=== PATIENT | male | born 1965 | race Caucasian/White ===

== ENCOUNTER 2016-12-18 11:33 | Inpatient (IN) | payer MEDICARE ==
[2016-12-18 11:33] VITALS: BMI 32.5
[2016-12-18 12:01] LABS: DRAW SITE VENOUS; VENOUS BLOOD GAS BASE EXCESS 0.6 mmol/L (0.0-2.0); VENOUS BLOOD GAS PCO2 52 mmHg (40-60); VENOUS BLOOD PH 7.33 (7.32-7.43)
[2016-12-18 12:03] LABS: BASO % 0.8 % (0.0-2.0); EOS # 0.1 K/uL (0.0-0.7); EOS % 2.4 % (0.0-4.0); HEMATOCRIT 40.7 % (35.0-51.0); LYMPH # 1.1 K/uL (1.0-4.3); LYMPH % 30.5 % (20.0-40.0); MEAN CELL VOLUME 91.1 fL (80.0-94.0); MEAN CORPUSCULAR HEMOGLOBIN 29.9 pg (27.0-31.0); MEAN CORPUSCULAR HGB CONC 32.8 g/dL (33.0-37.0); MEAN PLATELET VOLUME 9.8 fL (7.2-11.7); MONO # 0.7 K/uL (0.0-0.8); MONO % 17.6 % (0.0-10.0); NRBC % 0.1 % (0.0-2.0); RED CELL DISTRIBUTION WIDTH 14.4 % (11.5-14.5)
[2016-12-18 12:12] LABS: CHLORIDE 104 mmol/L (98-107); POTASSIUM 3.8 mmol/L (3.6-5.2); SODIUM 144 mmol/L (132-148)
[2016-12-18] MEDS ORDERED: Albuterol 0.083% Inhal Sol (2.5 mg/3 mL) UD INH STA ×2 (12:13→13:42)
[2016-12-18 12:14] LABS: BILIRUBIN,TOTAL 1.5 mg/dL (0.2-1.3); GFR AFRICAN-AMERICAN > 60
[2016-12-18 12:15] LABS: ALB/GLOB RATIO 0.9 (1.0-2.1); ALKALINE PHOSPHATASE 81 U/L (38-126); ALT/SGPT 44 U/L (21-72); AST/SGOT 57 U/L (17-59); BLOOD UREA NITROGEN 18 mg/dL (9-20); CALCIUM 8.1 mg/dl (8.6-10.4); CARBON DIOXIDE 26 mmol/L (22-30); GLUCOSE,RANDOM 119 mg/dL (75-110); TOTAL PROTEIN 9.3 g/dL (6.3-8.3)
[2016-12-18] MEDS ORDERED: Magnesium Sulfate 1 gm in D5W 200 ML IVPB ONE (12:22)
[2016-12-18 12:26] LABS: WHITE BLOOD COUNT 3.8 K/uL (4.8-10.8)
--- NOTE | 2016-12-18 13:22 | RAD ---
HISTORY: sob COMPARISON: 08/09/2016 FINDINGS: LUNGS: No active pulmonary disease. PLEURA: No significant pleural effusion identified, no pneumothorax apparent. CARDIOVASCULAR: Cardiomegaly. No significant congestive change. OSSEOUS STRUCTURES: No significant abnormalities. VISUALIZED UPPER ABDOMEN: Normal. OTHER FINDINGS: None. IMPRESSION: Cardiomegaly. No acute infiltrate.
--- NOTE | 2016-12-18 13:41 | C.PDOC ---
History Of Present Illness 51 y/o male is brought into the ED by ALS complaining of his "typical" asthma symptoms starting this morning. Patient placed on BIPAP by ALS prior to arrival. On arrival to the ED patient states he feels "much better." He admits to dry cough but denies fever or chest pain. Chief Complaint (Nursing): Respiratory Distress History Per: Patient, EMS History/Exam Limitations: no limitations Onset/Duration Of Symptoms: Hrs, Persistent Current Symptoms Are (Timing): Better Recent travel outside of the [place]: No Past Medical History Reviewed: Historical Data, Nursing Documentation, Vital Signs Vital Signs: Last Vital Signs Temp 97.9 F 12/18/16 11:35 Pulse 87 12/18/16 13:56 Resp 18 12/18/16 13:56 BP 115/77 12/18/16 13:56 Pulse Ox 91 L 12/18/16 15:25 - Medical History PMH: Asthma, Back Problems, CHF, COPD, HIV (Compliant with medications; Unknown CD4 count), HTN, Peripheral Edema, Pneumonia Surgical History: Coronary Stent (x2) - Twice Procedures ASSISTANCE WITH RESPIRATORY VENTILATION, <24 HRS, CPAP (08/09/16) CORONAR ARTERIOGR-2 CATH (12/30/13) EXCISION OF MINOR SALIVARY GLAND, PERC APPROACH, DIAGN (01/29/16) RT & LT HEART ANGIOCARD (12/30/13) RT/LEFT HEART CARD CATH (12/30/13) ULTRASONOGRAPHY OF NECK (01/29/16) Family History: States: Unknown Family Hx - Social History Hx Tobacco Use: No Hx Alcohol Use: No Hx Substance Use: No - Immunization History Hx Tetanus Toxoid Vaccination: Yes Hx Influenza Vaccination: Yes Hx Pneumococcal Vaccination: Yes Review Of Systems Except As Marked, All Systems Reviewed And Found Negative. Constitutional: Negative for: Fever Cardiovascular: Negative for: Chest Pain Respiratory: Positive for: Cough, Shortness of Breath, Wheezing. Negative for: Sputum Physical Exam - Physical Exam Appears: Non-toxic, No Acute Distress Skin: Normal Color, Warm, Dry Head: Atraumatic, Normacephalic Eye(s): bilateral: Normal Inspection, PERRL Neck: Normal ROM Chest: Symmetrical Cardiovascular: Rhythm Regular Respiratory: No Accessory Muscle Use, No Rales, No Rhonchi, Wheezing (minimal expiratory wheezing with good air entry) Gastrointestinal/Abdominal: Normal Exam, Soft, No Tenderness Extremity: Normal ROM, No Swelling Neurological/Psych: Oriented x3, Normal Speech, Normal Cognition ED Course And Treatment - Laboratory Results Result Diagrams: 12/18/16 11:57 12/18/16 11:57 ECG: Interpreted By Me ECG Rhythm: Sinus Rhythm, R BBB Interpretation Of ECG: right axis deviation Rate From EC (bpm) O2 Sat by Pulse Oximetry: 91 (ra) Pulse Ox Interpretation: Abnormal - Other Rad Chest X-Ray X-Ray: Viewed By Me, Read By Radiologist (Hilton Davidson MD) Interpretation: IMPRESSION: Cardiomegaly. No acute infiltrate. Medical Decision Making Medical Decision Making: Plan: * EKG * CXR * Labs * Albuterol, Magnesium Sulfate IVPB Case discussed with Dr. Anant Anderson who requests that the patient be placed in telemetry observation under his care. Disposition - Disposition Disposition Time: 15:15 Condition: STABLE - Clinical Impression Clinical Impression: Congestive heart failure, Chronic obstructive lung disease - Scribe Statement The provider has reviewed the documentation as recorded by the Scribe (Raiza Murillo) Provider Attestation: All medical record entries made by the Scribe were at my direction and personally dictated by me. I have reviewed the chart and agree that the record accurately reflects my personal performance of the history, physical exam, medical decision making, and the department course for this patient. I have also personally directed, reviewed, and agree with the discharge instructions and disposition.
[2016-12-18] MEDS ORDERED: Albuterol 0.083% Inhal Sol (2.5 mg/3 mL) UD ONE (13:53)
[2016-12-18] MEDS ORDERED: Albuterol-Ipratrop 3 mg / 0.5 (3 ml) UD ONE (14:33)
[2016-12-19] MEDS: Albuterol-Ipratrop 3 mg / 0.5 (3 ml) UD INH STA ×2 (01:33→06:30)
[2016-12-19] MEDS ORDERED: Albuterol-Ipratrop 3 mg / 0.5 (3 ml) UD INH ONE (01:49)
[2016-12-19] MEDS ORDERED: Albuterol-Ipratrop 3 mg / 0.5 (3 ml) UD ONE (06:28)
[2016-12-19] MEDS ORDERED: BOSENTAN PO SCH (10:00)
[2016-12-19] MEDS ORDERED: Abacavir/Lamivudine 600 mg-300 mg Tab PO SCH (10:00)
[2016-12-19] MEDS: Abacavir/Lamivudine 600 mg-300 mg Tab PO SCH (10:26)
[2016-12-19] MEDS ORDERED: Abacavir/Lamivudine 600 mg-300 mg Tab PO ONE (10:26)
[2016-12-19] MEDS: Albuterol-Ipratrop 3 mg / 0.5 (3 ml) UD INH SCH ×2 (13:25→19:25)
[2016-12-19] MEDS: Tmp-Smz 800 mg-160 mg DS Tab PO SCH (18:50)
[2016-12-20] MEDS: Albuterol-Ipratrop 3 mg / 0.5 (3 ml) UD INH SCH ×4 (01:50→20:04)
[2016-12-20] MEDS: Tmp-Smz 800 mg-160 mg DS Tab PO SCH (09:26)
[2016-12-20] MEDS: Abacavir/Lamivudine 600 mg-300 mg Tab PO SCH (09:27)
[2016-12-20] MEDS ORDERED: Abacavir/Lamivudine 600 mg-300 mg Tab PO ONE (09:27)
[2016-12-21] MEDS: Albuterol-Ipratrop 3 mg / 0.5 (3 ml) UD INH SCH ×4 (01:43→20:52)
[2016-12-21] MEDS: Tmp-Smz 800 mg-160 mg DS Tab PO SCH (09:48)
[2016-12-21] MEDS: Abacavir/Lamivudine 600 mg-300 mg Tab PO SCH (09:51)
--- NOTE | 2016-12-21 09:58 | HP ---
The patient is a 51-year-old male admitted to hospital with chief complaint of progressive shortness of breath, wheezes, cough, fatigue, tiredness. The patient has a history of COPD, pulmonary hyperten tasha, HIV, heart failure. The patient is on DuoNeb, O2, takes Lasix. The patient is an ex-smoker. PHYSICAL EXAMINATION: GENERAL: The patient is awake, alert, oriented. VITAL SIGNS: Temperature 98, pulse 90. HEENT: Within normal limits. NECK: Supple. CHEST: Symmetrical. HEART: Regular. ABDOMEN: Soft. EXTREMITIES: No edema. ASSESSMENT: The patient has chronic obstructive pulmonary disease, pulmonary hypertension, heart jevon lure. The patient bed rest, supportive care, bronchodilators, diuresis. Anant Daniel MD cc: [id number] TT: 12/19/2016 10:56:52 ms
--- NOTE | 2016-12-21 10:53 | CP.PCM.PN ---
Subjective - Date & Time of Evaluation Date of Evaluation: 12/21/16 Time of Evaluation: 08:35 - Subjective Subjective: Medicine Progress Note- Dr. Anderson's Service: Patient seen and examined at bedside this AM. Patient reports he is breathing much better than on admission. Patient admitted 12/18/16 for SOB secondary to asthma and CHF exacerbation. Admits to wheezing, occasional SOB. He was able to sleep better last night. Patient is complaining of LE edema bilaterally. Denies chest pain, fever, chills, cough, nausea, vomiting. Seen with attending during rounds. Objective - Vital Signs/Intake and Output Vital Signs (last 24 hours): Temp Pulse Resp BP Pulse Ox 97.4 F L 88 18 107/73 95 12/21/16 07:35 12/21/16 07:35 12/21/16 07:35 12/21/16 09:48 12/21/16 07:35 Intake and Output: 12/21/16 12/21/16 06:59 18:59 Intake Total 620 Balance 620 - Medications Medications: Current Medications Abacavir/Lamivudine (Epzicom) 1 tab PO DAILY [facility] Last Admin: 12/21/16 09:51 Dose: 1 tab Albuterol/Ipratropium (Duoneb 3 Mg/0.5 Mg (3 Ml) Ud) 3 ml INH RQ6 [facility] Last Admin: 12/21/16 08:46 Dose: 3 ml Darunavir (Prezista) 800 mg PO DAILY [facility] Last Admin: 12/21/16 09:51 Dose: 800 mg Furosemide (Lasix) 40 mg IVP DAILY [facility] Last Admin: 12/21/16 09:48 Dose: 40 mg Heparin Sodium (Porcine) (Heparin) 5,000 units SC Q12 [facility] Last Admin: 12/21/16 09:48 Dose: 5,000 units Home Med (Bosentan [Tracleer]) 62.5 mg PO BID [facility] Ritonavir (Norvir) 100 mg PO DAILY [facility] Last Admin: 12/21/16 09:52 Dose: 100 mg Trimethoprim/Sulfamethoxazole (Bactrim Ds Tab) 1 tab PO DAILY [facility] Last Admin: 12/21/16 09:48 Dose: 1 tab - Constitutional Appears: No Acute Distress - Head Exam Head Exam: NORMAL INSPECTION, NORMOCEPHALIC - Eye Exam Eye Exam: EOMI, Normal appearance - ENT Exam ENT Exam: Mucous Membranes Moist - Neck Exam Neck Exam: Full ROM, Normal Inspection - Respiratory Exam Respiratory Exam: Wheezes, NORMAL BREATHING PATTERN. absent: Rales, Rhonchi - Cardiovascular Exam Cardiovascular Exam: REGULAR RHYTHM, +S1, +S2 - GI/Abdominal Exam GI & Abdominal Exam: Soft. absent: Distended, Tenderness - Extremities Exam Extremities Exam: Pedal Edema, Tenderness. absent: Calf Tenderness - Back Exam Back Exam: NORMAL INSPECTION - Neurological Exam Neurological Exam: Alert, Awake, Oriented x3 - Psychiatric Exam Psychiatric exam: Normal Affect, Normal Mood - Skin Skin Exam: Normal Color, Warm Assessment and Plan - Assessment and Plan (Free Text) Assessment: (1) Pulmonary hypertension Assessment & Plan: Admitted for exacerbation and shortness of breath All home medication resumed and placed on oxygen Bosentan 62.5mg po bid not on formulary Status: Chronic (2) CHF (congestive heart failure) Assessment & Plan: Lasix 40mg iv daily Status: Chronic (3) COPD (chronic obstructive pulmonary disease) Assessment & Plan: duoneb q6 inh [facility] with peak flows pre/post treatment Status: Chronic (4) HIV (human immunodeficiency virus infection) Assessment & Plan: Resume home antivirals Thrombocytopenic, neutropenic. Monitor CBC. Status: Chronic (5) Hypertension Assessment & Plan: Patient on Lasix for CHF well controlled at this time Status: Chronic (6) Prophylactic measure Assessment & Plan: Heparin 5000 SC Q12H Pepcid 20 mg PO daily All management as per Dr. Anderson Status: Acute
[2016-12-21 11:35] LABS: BASO # 0.1 K/uL (0.0-0.2); EOS # 0.3 K/uL (0.0-0.7); HEMATOCRIT 42.6 % (35.0-51.0); LYMPH # 1.1 K/uL (1.0-4.3); LYMPH % 19.5 % (20.0-40.0); MEAN CELL VOLUME 90.3 fL (80.0-94.0); MEAN CORPUSCULAR HEMOGLOBIN 29.6 pg (27.0-31.0); MEAN CORPUSCULAR HGB CONC 32.7 g/dL (33.0-37.0); MEAN PLATELET VOLUME 10.7 fL (7.2-11.7); MONO # 0.7 K/uL (0.0-0.8); MONO % 12.4 % (0.0-10.0); RED CELL DISTRIBUTION WIDTH 14.4 % (11.5-14.5); WHITE BLOOD COUNT 5.4 K/uL (4.8-10.8)
[2016-12-21 12:06] LABS: CHLORIDE 96 mmol/L (98-107)
[2016-12-21 12:07] LABS: POTASSIUM 3.8 mmol/L (3.6-5.2); SODIUM 138 mmol/L (132-148)
[2016-12-21 12:09] LABS: GFR AFRICAN-AMERICAN > 60
[2016-12-21 12:10] LABS: ALB/GLOB RATIO 0.9 (1.0-2.1); ALKALINE PHOSPHATASE 76 U/L (38-126); ALT/SGPT 38 U/L (21-72); AST/SGOT 59 U/L (17-59); BILIRUBIN,TOTAL 1.2 mg/dL (0.2-1.3); BLOOD UREA NITROGEN 29 mg/dL (9-20); CALCIUM 8.5 mg/dl (8.6-10.4); CARBON DIOXIDE 26 mmol/L (22-30); GLUCOSE,RANDOM 124 mg/dL (75-110); PHOSPHOROUS 3.1 mg/dL (2.5-4.5); TOTAL PROTEIN 9.1 g/dL (6.3-8.3)
[2016-12-21 12:11] LABS: MAGNESIUM 1.4 mg/dL (1.6-2.3)
[2016-12-21] MEDS ORDERED: BOSENTAN PO SCH (18:00)
[2016-12-21 21:25] VITALS: RESP 20
[2016-12-22 01:14] VITALS: TEMP 97.4
[2016-12-22] MEDS: Albuterol-Ipratrop 3 mg / 0.5 (3 ml) UD INH SCH ×3 (01:18→13:18)
[2016-12-22 08:30] VITALS: PULSE 92; O2SAT 95
[2016-12-22] MEDS: Abacavir/Lamivudine 600 mg-300 mg Tab PO SCH (09:04)
[2016-12-22] MEDS: Tmp-Smz 800 mg-160 mg DS Tab PO SCH (09:04)
[2016-12-22 09:12] VITALS: BP 121/73
--- NOTE | 2016-12-22 09:40 | CP.PCM.PN ---
Subjective - Date & Time of Evaluation Date of Evaluation: 12/22/16 Time of Evaluation: 07:45 - Subjective Subjective: Medicine Progress Note- Dr. Anderson's Service: Patient seen and examined at bedside this AM. Patient reports he is breathing well this AM with oxygen and positive pressure at night. Patient continues to experience LE edema bilaterally, which has improved. Denies chest pain, fever, chills, cough, nausea, vomiting. Discharge planning as per Dr. Anderson. Objective - Vital Signs/Intake and Output Vital Signs (last 24 hours): Temp Pulse Resp BP Pulse Ox 97.4 F L 92 H 20 121/73 95 12/22/16 07:15 12/22/16 07:15 12/22/16 07:15 12/22/16 09:08 12/22/16 07:15 Intake and Output: 12/22/16 12/22/16 06:59 18:59 Intake Total 480 Output Total 700 Balance -220 - Medications Medications: Current Medications Abacavir/Lamivudine (Epzicom) 1 tab PO DAILY [facility] Last Admin: 12/22/16 09:04 Dose: 1 tab Albuterol/Ipratropium (Duoneb 3 Mg/0.5 Mg (3 Ml) Ud) 3 ml INH RQ6 [facility] Last Admin: 12/22/16 07:53 Dose: 3 ml Darunavir (Prezista) 800 mg PO DAILY [facility] Last Admin: 12/22/16 09:09 Dose: 800 mg Famotidine (Pepcid) 20 mg PO DAILY [facility] Furosemide (Lasix) 40 mg IVP DAILY [facility] Last Admin: 12/22/16 09:08 Dose: 40 mg Heparin Sodium (Porcine) (Heparin) 5,000 units SC Q12 [facility] Last Admin: 12/22/16 09:03 Dose: 5,000 units Home Med (Bosentan [Tracleer]) 62.5 mg PO BID [facility] Ritonavir (Norvir) 100 mg PO DAILY [facility] Last Admin: 12/22/16 09:04 Dose: 100 mg Trimethoprim/Sulfamethoxazole (Bactrim Ds Tab) 1 tab PO DAILY [facility] Last Admin: 12/22/16 09:04 Dose: 1 tab - Labs Labs: 12/21/16 11:20 12/21/16 11:20 - Constitutional Appears: No Acute Distress - Head Exam Head Exam: NORMAL INSPECTION, NORMOCEPHALIC - Eye Exam Eye Exam: EOMI, Normal appearance - ENT Exam ENT Exam: Mucous Membranes Moist - Neck Exam Neck Exam: Full ROM, Normal Inspection - Respiratory Exam Respiratory Exam: Clear to Ausculation Bilateral, NORMAL BREATHING PATTERN. absent: Wheezes - Cardiovascular Exam Cardiovascular Exam: REGULAR RHYTHM, +S1, +S2 - GI/Abdominal Exam GI & Abdominal Exam: Soft. absent: Distended, Tenderness - Neurological Exam Neurological Exam: Alert, Awake, Oriented x3 - Psychiatric Exam Psychiatric exam: Normal Affect, Normal Mood - Skin Skin Exam: Normal Color, Warm Assessment and Plan - Assessment and Plan (Free Text) Assessment: (1) Pulmonary hypertension Assessment & Plan: Admitted for exacerbation and shortness of breath All home medication resumed and placed on oxygen Resume home medications: Bosentan 62.5mg PO BID Status: Chronic (2) CHF (congestive heart failure) Assessment & Plan: Acute on Chronic systolic CHF. ECHO 05/2015 with 45% EF Resume home medications: Lasix 40mg PO BID Status: Chronic (3) COPD (chronic obstructive pulmonary disease) Assessment & Plan: Patient discharged with Medrol dose pack. Status: Chronic (4) HIV (human immunodeficiency virus infection) Assessment & Plan: Resume home antivirals Status: Chronic (5) Hypertension Assessment & Plan: Patient on Lasix for CHF well controlled at this time Status: Chronic Discharge planning as per Dr. Anderson All management as per Dr. Anderson
--- NOTE | 2016-12-22 17:01 | PCM.HF ---
Heart Failure Core Measure - Heart Failure Ejection Fraction: 40 % or Greater RADHA Inhibitor Prescribed: No Contraindication/Reason for not providing: ef>45 Beta-Melony Prescribed: None Contraindication/Reason for not providing: copd Angiotensin II Receptor Melony Prescribed: No Contraindication/Reason for not providing: ef>45/on bocanten AnticoagulationTherapy for Atrial Fibrillation/Atrialflutter: No Contraindication/Reason for not providing: no hx of afib Aldosterone Antagonist Prescribed: No Contraindication/Reason for not providing: ef>45 Hydralazine Nitrate Prescribed: No Contraindication/Reason for not providing: ef>45 Implantable Cardioverter Defibrillator Therapy: No Contraindication/Reason for not providing: ef>45 Cardiac Resynchronization Therapy Prescribed: No Contraindication/Reason for not providing: ef>45 - Follow up Will be discharged to: Home Follow Up Date (must be within 7 days from discharge): 12/28/16 Follow Up Time: 09:00
--- NOTE | 2016-12-23 14:00 | CARD ---
APPROVED REPORT EKG Measurement Heart [id number] ID [id number] <Conclusion> Normal sinus rhythm Right bundle branch block,lphb Anteroseptal infarct, age undetermined T wave abnormality, consider inferolateral ischemia Abnormal ECG
--- NOTE | 2017-02-01 08:39 | DS ---
The patient COPD in the hospital with shortness of breath, weakness, fatigue, tiredness. The p atient got bedrest, supportive care, IV steroid, bronchodilator. The patient showed improvement, dis charged. To be followed outpatient. Anant Daniel MD cc: [id number] TT: 01/30/2017 13:39:06 rn
== END 2016-12-22 13:47 | disposition home or self-care (01) | DRG 291 ==
LOC: C.ER 11:33 → C.9E 15:24 → C.6T 16:25
PROVIDERS: ADMIT Internal Medicine Pulmonary Disease; ATTEND Internal Medicine Pulmonary Disease
DX: I11.0 Hypertensive heart disease with heart failure (principal); B20 Human immunodeficiency virus [HIV] disease; J45.901 Unspecified asthma with (acute) exacerbation; I50.23 Acute on chronic systolic (congestive) heart failure; D69.6 Thrombocytopenia, unspecified; D70.9 Neutropenia, unspecified; I27.2 Other secondary pulmonary hypertension; J44.9 Chronic obstructive pulmonary disease, unspecified; Z95.5 Presence of coronary angioplasty implant and graft; Z87.891 Personal history of nicotine dependence

== ENCOUNTER 2017-06-02 12:54 | Inpatient (IN) | payer MEDICARE ==
[2017-06-02 12:54] VITALS: BMI 32.5
--- NOTE | 2017-06-02 13:45 | C.PDOC ---
History Of Present Illness 52 y/o male with Hx of CHF, COPD and edema presents to ED sent by Dr. Anderson for admission. Patient states he has not been compliant with medications secondary to meds ran out. Patient saw Dr. Anderson who advised he come to ED for further evaluation. No other complaints at this time. Patient is O2 dependent and has at home. Time Seen by Provider: 06/02/17 13:26 Chief Complaint (Nursing): Shortness Of Breath History Per: Patient History/Exam Limitations: no limitations Onset/Duration Of Symptoms: Days Current Symptoms Are (Timing): Still Present Initiating Event: Upper Respiratory Illness Associated Symptoms: Leg/Calf Pain, Ankle/Leg Swelling Recent travel outside of the [place]: No Past Medical History Reviewed: Historical Data, Nursing Documentation, Vital Signs Vital Signs: Last Vital Signs Temp 98.5 F 06/02/17 13:09 Pulse 102 H 06/02/17 13:09 Resp 24 06/02/17 14:30 BP 135/80 06/02/17 13:09 Pulse Ox 93 L 06/02/17 15:36 - Medical History PMH: Asthma, Back Problems, CHF, COPD, Emphysema, HIV (Compliant with medications; Unknown CD4 count), HTN, Peripheral Edema, Pneumonia Surgical History: Coronary Stent (x2) - [facility] Procedures ASSISTANCE WITH RESPIRATORY VENTILATION, <24 HRS, CPAP (08/09/16) CORONAR ARTERIOGR-2 CATH (12/30/13) EXCISION OF MINOR SALIVARY GLAND, PERC APPROACH, DIAGN (01/29/16) RT & LT HEART ANGIOCARD (12/30/13) RT/LEFT HEART CARD CATH (12/30/13) ULTRASONOGRAPHY OF NECK (01/29/16) Family History: States: No Known Family Hx - Social History Hx Tobacco Use: No Hx Alcohol Use: No Hx Substance Use: No - Immunization History Hx Tetanus Toxoid Vaccination: Yes Hx Influenza Vaccination: Yes Hx Pneumococcal Vaccination: Yes Review Of Systems Except As Marked, All Systems Reviewed And Found Negative. Constitutional: Negative for: Fever, Chills Cardiovascular: Positive for: Edema. Negative for: Chest Pain Respiratory: Positive for: Shortness of Breath Gastrointestinal: Negative for: Nausea, Vomiting Skin: Negative for: Rash Neurological: Negative for: Weakness, Numbness Physical Exam - Physical Exam Appears: Non-toxic, No Acute Distress Skin: Normal Color, Warm, Dry, No Rash Head: Atraumatic, Normacephalic Eye(s): bilateral: Normal Inspection Oral Mucosa: Moist Neck: Normal ROM, Supple Chest: Symmetrical Cardiovascular: Rhythm Regular, No Murmur Respiratory: Normal Breath Sounds, No Rales, No Rhonchi, No Wheezing Gastrointestinal/Abdominal: Soft, No Tenderness, No Guarding, No Rebound Extremity: Normal ROM, Pedal Edema (Bilateral), No Deformity, No Swelling Neurological/Psych: Oriented x3 Gait: Steady ED Course And Treatment - Laboratory Results Result Diagrams: 06/02/17 13:58 06/02/17 13:58 Lab Interpretation: Abnormal ECG: Interpreted By Me ECG Rhythm: R BBB, Nonspecific Changes ECG Interpretation: No Acute Changes Rate From EC O2 Sat by Pulse Oximetry: 93 (RA) Pulse Ox Interpretation: Normal - Radiology CXR: Interpreted by Me CXR Interpretation: Yes: Cardiomegaly Progress Note: On re-evaluation lungs clear, in no acute distress. denies chest pain Reassessment Condition: Unchanged - Physician Consult Information Physician Contacted: Anant Anderson Outcome Of Conversation: admit Medical Decision Making Medical Decision Making: Plan: * Labs * Xray * Admission to hospital Disposition Discussed With : Anant Anderson Doctor Will See Patient In The: Hospital - Disposition Disposition: HOSPITALIZED Disposition Time: 14:15 Condition: STABLE - POA Present On Arrival: None - Clinical Impression Clinical Impression: Congestive heart failure, CHF (congestive heart failure), NYHA class II, COPD exacerbation, Chest pain, Cardiomyopathy - PA / TRACE CLERK / Resident Statement MD/DO has reviewed & agrees with the documentation as recorded. - Scribe Statement The provider has reviewed the documentation as recorded by the Edson Basilio All medical record entries made by the Edson were at my direction and personally dictated by me. I have reviewed the chart and agree that the record accurately reflects my personal performance of the history, physical exam, medical decision making, and the department course for this patient. I have also personally directed, reviewed, and agree with the discharge instructions and disposition. Decision To Admit - Pt Status Changed To: Hospital Disposition Of: Inpatient - Admit Certification Admit to Inpatient:: After my assessment, the patient will require hospitalization for at least two midnights. This is because of the severity of symptoms shown, intensity of services needed, and/or the medical risk in this patient being treated as an outpatient. - InPatient: Physician Admission Certification: I certify that this patient requires 2 or more midnights of care for the following reason:: CHF. Cardiomyopathy - . Bed Request Type: Telemetry Admitting Physician: Anant Anderson Patient Diagnosis: Congestive heart failure, CHF (congestive heart failure), NYHA class II, COPD exacerbation, Chest pain, Cardiomyopathy
[2017-06-02 14:01] LABS: BASO # 0.1 K/uL (0.0-0.2); EOS # 0.1 K/uL (0.0-0.7); EOS % 1.8 % (0.0-4.0); LYMPH # 0.5 K/uL (1.0-4.3)
[2017-06-02 14:08] LABS: NRBC % 0.1 % (0.0-2.0)
[2017-06-02 14:15] LABS: ALB/GLOB RATIO 0.8 (1.0-2.1); BILIRUBIN,TOTAL 2.2 mg/dL (0.2-1.3); TOTAL PROTEIN 8.5 g/dL (6.3-8.3)
[2017-06-02 14:16] LABS: CALCIUM 8.3 mg/dl (8.6-10.4)
[2017-06-02 14:18] LABS: BASO % 1.7 % (0.0-2.0); HEMATOCRIT 39.5 % (35.0-51.0); LYMPH % 14.7 % (20.0-40.0); MEAN CELL VOLUME 91.4 fL (80.0-94.0); MEAN CORPUSCULAR HEMOGLOBIN 30.8 pg (27.0-31.0); MEAN CORPUSCULAR HGB CONC 33.7 g/dL (33.0-37.0); MEAN PLATELET VOLUME 9.9 fL (7.2-11.7); MONO # 0.6 K/uL (0.0-0.8); MONO % 15.3 % (0.0-10.0); RED CELL DISTRIBUTION WIDTH 15.2 % (11.5-14.5); WHITE BLOOD COUNT 3.7 K/uL (4.8-10.8)
--- NOTE | 2017-06-02 14:25 | RAD ---
HISTORY: SOB COMPARISON: 12/18/2016 TECHNIQUE: Chest PA and lateral FINDINGS: LUNGS: The lungs are well inflated. There is no focal consolidation. PLEURA: No significant pleural effusion identified. No pneumothorax apparent. CARDIOVASCULAR: There is persistent severe cardiomegaly. OSSEOUS STRUCTURES: No significant abnormalities. VISUALIZED UPPER ABDOMEN: Normal. OTHER FINDINGS: None. IMPRESSION: Persistent severe cardiomegaly. No active pulmonary disease.
[2017-06-02 14:32] LABS: POTASSIUM 2.8 mmol/L (3.6-5.2); TROPONIN I 0.037 ng/mL (0.00-0.120)
[2017-06-02] MEDS ORDERED: Potassium Chloride 20 mEq ER Tab PO STA (15:41)
[2017-06-02] MEDS ORDERED: MethylPREDNISolone 40 mg Vial IVP STA (15:45)
--- NOTE | 2017-06-02 16:14 | CP.PCM.PN ---
Subjective - Date & Time of Evaluation Date of Evaluation: 06/02/17 Time of Evaluation: 16:14 - Subjective Subjective: Patient is a 52 year old male with PMHx HIV, HTN, CHF, Pulm HTN, COPD who presents with complaint of dyspnea for several days duration. Patient states he ran out of his Bosentan two months ago as he was not able to follow up with his Pulm HTN specialist. Patient states he is compliant with his other medications. Patient states he tried to cut back on salt and water intake as he thought this was contributing to his dyspnea. Patient states he saw his PMD Dr. Anderson a few days ago and was told to come to the hospital at that time. Patient delayed presentation to the ED as his is currently admitted as an inpatient and he was trying to help care for her. Patient wears 2.5L O2 by nasal canula at home. Patient states he cannot lay flat and sleeps propped up due to dyspnea. Meds: Bosentan 62.5 BID, ritonavir 100mg daily, lasix 40mg daily, prezista 800mg daily, abacavir-lamivudine 600-300 daily. Pulm HTN specialist: Dr. Villanueva (?), ID specialist: Dr. Garibay Objective - Vital Signs/Intake and Output Vital Signs (last 24 hours): Temp Pulse Resp BP Pulse Ox 98.5 F 102 H 24 128/74 93 L 06/02/17 13:09 06/02/17 13:09 06/02/17 14:30 06/02/17 16:10 06/02/17 15:40 - Medications Medications: Current Medications Abacavir/Lamivudine (Epzicom) tab PO DAILY [facility] Darunavir (Prezista) 800 mg PO DAILY [facility] Furosemide (Lasix) 40 mg IVP DAILY [facility] Last Admin: 06/02/17 16:10 Dose: 40 mg Methylprednisolone (Solu-Medrol) 125 mg IVP STAT STA Stop: 06/02/17 15:46 Last Admin: 06/02/17 16:10 Dose: 125 mg Methylprednisolone (Solu-Medrol) 40 mg IVP Q8H [facility] Potassium Chloride (K-Dur 20 Meq Er Tab) 60 meq PO STAT STA Stop: 06/02/17 15:42 Last Admin: 06/02/17 16:09 Dose: 60 meq Ritonavir (Norvir) 100 mg PO DAILY [facility] - Labs Labs: 06/02/17 13:58 06/02/17 13:58 - Constitutional Appears: No Acute Distress, Chronically Ill - Head Exam Head Exam: ATRAUMATIC, NORMOCEPHALIC - Eye Exam Eye Exam: EOMI - ENT Exam ENT Exam: Mucous Membranes Moist - Respiratory Exam Respiratory Exam: Decreased Breath Sounds, Rales - Cardiovascular Exam Cardiovascular Exam: +S1, +S2, Murmur - GI/Abdominal Exam GI & Abdominal Exam: Distended, Soft, Normal Bowel Sounds. absent: Guarding, Rigid, Tenderness - Extremities Exam Extremities Exam: Pedal Edema (3+ pitting bilateral lower extremities) - Neurological Exam Neurological Exam: Alert, Awake, Oriented x3 - Psychiatric Exam Psychiatric exam: Normal Mood - Skin Skin Exam: Dry, Warm Assessment and Plan - Assessment and Plan (Free Text) Assessment: CHF exacerbation BNP 2940 CXR severe cardiomegaly, no active pulmonary disease will give lasix IV 40mg daily will check new echo heart healthy diet, 2g sodium, 1500ml fluid restriction daily weights I/Os COPD exacerbation solumedrol 125mg IV given now will start 40mg IV q8 tomorrow continue to monitor O2 by NC HTN continue lasix HIV continue home meds: ritonavir 100mg daily, prezista 800mg daily, abacavir- lamivudine 600-300 daily Hx Pulm HTN pt has been off bosentan for several months non-formulary here will check new Echo Prophylactic measure heparin 5000u sc q12h pepcid 20mg daily All medical management as per Dr. Anderson
[2017-06-02] MEDS ORDERED: Potassium Chloride 20 mEq ER Tab PO ONE (16:45)
[2017-06-03 06:19] LABS: BASO % 0.2 % (0.0-2.0); LYMPH # 0.3 K/uL (1.0-4.3); LYMPH % 10.7 % (20.0-40.0); MEAN CELL VOLUME 92.8 fL (80.0-94.0); MEAN CORPUSCULAR HEMOGLOBIN 31.1 pg (27.0-31.0); MEAN CORPUSCULAR HGB CONC 33.5 g/dL (33.0-37.0); MEAN PLATELET VOLUME 10.1 fL (7.2-11.7); MONO # 0.1 K/uL (0.0-0.8); MONO % 2.5 % (0.0-10.0); NRBC % 0.2 % (0.0-2.0); WHITE BLOOD COUNT 2.6 K/uL (4.8-10.8)
[2017-06-03 06:33] LABS: POTASSIUM 3.5 mmol/L (3.6-5.2)
[2017-06-03 06:35] LABS: ALB/GLOB RATIO 0.7 (1.0-2.1); BILIRUBIN,TOTAL 1.8 mg/dL (0.2-1.3); PHOSPHOROUS 2.9 mg/dL (2.5-4.5); TOTAL PROTEIN 8.2 g/dL (6.3-8.3)
[2017-06-03 06:36] LABS: CALCIUM 8.5 mg/dl (8.6-10.4); MAGNESIUM 1.1 mg/dL (1.6-2.3)
[2017-06-03] MEDS ORDERED: Potassium Chloride 20 mEq ER Tab PO ONE (07:30)
[2017-06-03] MEDS: Magnesium Sulfate 1 gm in D5W 1 GM/100 ML BAG IVPB SCH ×2 (07:43→08:20)
[2017-06-03] MEDS: MethylPREDNISolone 40 mg Vial IVP SCH ×2 (08:18→15:48)
--- NOTE | 2017-06-03 09:08 | CP.PCM.PN ---
Subjective - Date & Time of Evaluation Date of Evaluation: 06/03/17 Time of Evaluation: 09:06 - Subjective Subjective: PGY2 medicine progress note for Dr. Anderson Patient seen and examined. Patient states his breathing is improved today. Patient states diuretics are helping and he feels decreased edema in legs although he states there is still edema in thighs. Patient reports poor sleep. Objective - Vital Signs/Intake and Output Vital Signs (last 24 hours): Temp Pulse Resp BP Pulse Ox 97.5 F L 92 H 20 108/73 95 06/03/17 04:05 06/03/17 07:30 06/03/17 04:05 06/03/17 04:05 06/03/17 04:05 Intake and Output: 06/03/17 06/03/17 06:59 18:59 Intake Total 340 Output Total 1250 Balance -910 - Medications Medications: Current Medications Abacavir/Lamivudine (Epzicom) 1 tab PO DAILY [facility] Darunavir (Prezista) 800 mg PO DAILY [facility] Famotidine (Pepcid) 20 mg PO DAILY [facility] Furosemide (Lasix) 40 mg IVP DAILY [facility] Last Admin: 06/02/17 16:10 Dose: 40 mg Heparin Sodium (Porcine) (Heparin) 5,000 units SC Q12 [facility] Last Admin: 06/02/17 22:10 Dose: 5,000 units Methylprednisolone (Solu-Medrol) 40 mg IVP Q8H [facility] Last Admin: 06/03/17 08:18 Dose: 40 mg Ritonavir (Norvir) 100 mg PO DAILY [facility] - Labs Labs: 06/03/17 06:09 06/03/17 06:09 - Constitutional Appears: Non-toxic, No Acute Distress - Head Exam Head Exam: ATRAUMATIC, NORMOCEPHALIC - Eye Exam Eye Exam: EOMI - ENT Exam ENT Exam: Mucous Membranes Moist - Respiratory Exam Respiratory Exam: Rhonchi, Wheezes. absent: Respiratory Distress - Cardiovascular Exam Cardiovascular Exam: +S1, +S2, Murmur - GI/Abdominal Exam GI & Abdominal Exam: Distended, Soft. absent: Firm, Guarding, Rigid, Tenderness - Extremities Exam Extremities Exam: Pedal Edema (b/l pitting edema to thighs, 1-2+) - Neurological Exam Neurological Exam: Alert, Awake, Oriented x3 - Psychiatric Exam Psychiatric exam: Normal Affect - Skin Skin Exam: Dry, Warm Assessment and Plan - Assessment and Plan (Free Text) Assessment: CHF exacerbation BNP 2940 CXR severe cardiomegaly, no active pulmonary disease lasix IV 40mg daily f/u echo report heart healthy diet, 2g sodium, 1500ml fluid restriction daily weights I/Os COPD exacerbation solumedrol 40mg IV q8 continue to monitor O2 by NC Electrolyte imbalance magnesium and potassium repleted continue to monitor HTN continue lasix IV 40mg daily Hyperglycemia patient on steroids denies history diabetes will check Hgb A1c HIV continue home meds: ritonavir 100mg daily, prezista 800mg daily, abacavir- lamivudine 600-300 daily Hx Pulm HTN pt has been off bosentan for several months non-formulary here will check new Echo Hx Sleep Apnea patient completed sleep study as outpatient but never received CPAP will try patient on BiPAP tonight for sleep, 06/17 Prophylactic measure heparin 5000u sc q12h pepcid 20mg daily PT eval All medical management as per Dr. Anderson
[2017-06-03] MEDS: Abacavir/Lamivudine 600 mg-300 mg Tab PO SCH (10:54)
[2017-06-04] MEDS: MethylPREDNISolone 40 mg Vial IVP SCH ×2 (00:11→11:28)
[2017-06-04 06:47] LABS: BASO % 0.1 % (0.0-2.0); HEMATOCRIT 41.4 % (35.0-51.0); LYMPH # 0.3 K/uL (1.0-4.3); LYMPH % 3.4 % (20.0-40.0); MEAN CELL VOLUME 92.5 fL (80.0-94.0); MEAN CORPUSCULAR HEMOGLOBIN 30.8 pg (27.0-31.0); MEAN CORPUSCULAR HGB CONC 33.3 g/dL (33.0-37.0); MEAN PLATELET VOLUME 10.2 fL (7.2-11.7); MONO # 0.2 K/uL (0.0-0.8); MONO % 2.8 % (0.0-10.0); PLATELET COUNT 83 K/uL (130-400); RED CELL DISTRIBUTION WIDTH 15.2 % (11.5-14.5); WHITE BLOOD COUNT 8.4 K/uL (4.8-10.8)
[2017-06-04 07:46] LABS: CHLORIDE 102 mmol/L (98-107); POTASSIUM 4.3 mmol/L (3.6-5.2); SODIUM 141 mmol/L (132-148)
[2017-06-04 07:48] LABS: AST/SGOT 47 U/L (17-59); BILIRUBIN,TOTAL 1.8 mg/dL (0.2-1.3); CARBON DIOXIDE 27 mmol/L (22-30); GFR AFRICAN-AMERICAN > 60
[2017-06-04 07:49] LABS: ALB/GLOB RATIO 0.8 (1.0-2.1); ALKALINE PHOSPHATASE 70 U/L (38-126); ALT/SGPT 33 U/L (21-72); BLOOD UREA NITROGEN 34 mg/dL (9-20); CALCIUM 8.6 mg/dl (8.6-10.4); GLUCOSE,RANDOM 142 mg/dL (75-110); PHOSPHOROUS 3.8 mg/dL (2.5-4.5); TOTAL PROTEIN 8.8 g/dL (6.3-8.3)
[2017-06-04 07:50] LABS: MAGNESIUM 1.5 mg/dL (1.6-2.3)
[2017-06-04 08:27] LABS: NEUTROPHIL 94 % (50-75); TOTAL CELLS COUNTED 100
[2017-06-04 08:28] LABS: GIANT PLATELETS PRESENT; LARGE PLATELETS PRESENT
[2017-06-04] MEDS: Abacavir/Lamivudine 600 mg-300 mg Tab PO SCH (10:00)
--- NOTE | 2017-06-04 10:50 | HP ---
HISTORY OF PRESENT ILLNESS: The patient 52 year-old male with chief complaint of progressive weakness,fatigue, tiredness, shortness of breath. The patient has COPD, HIV, pulmonary hypertension and heart failure. PHYSICAL EXAMINATION: GENERAL: The patient is awake, alert and oriented. VITAL SIGNS: Temperature 98 and pulse ------. HEENT: Within normal limits. NECK: Supple. CHEST: Symmetrical. HEART: Regular. ABDOMEN: Soft. EXTREMITIES: No edema. IMPRESSION: The patient with pulmonary hypertension, chronic obstructive pulmonary disease, human immunodeficiency virus. The patient bedrest, supportive care, bronchodilator. Anant Anderson MD
--- NOTE | 2017-06-04 16:17 | CARD ---
APPROVED REPORT EXAM: Two-dimensional and M-mode echocardiogram with Doppler and color Doppler. Other Information Quality : GoodRhythm : NSR INDICATION Dyspnea Cardiomyopathy Pulmonary Hypertention Congestive Heart Failure COPD HIV M-Mode DIMENSIONS RVDd5.48 (2.1-3.2cm)Left Atrium (MM)4.74 (2.5-4.0cm) IVSd0.49 (0.7-1.1cm)Aortic Root2.93 (2.2-3.7cm) LVDd3.71 (4.0-5.6cm)Aortic Cusp Exc.2.39 (1.5-2.0cm) PWd0.78 (0.7-1.1cm)FS (%) 43 % LVDs2.10 (2.0-3.8cm)LVEF (%)75 (>50%) Mitral Valve MV E Jitgafvd77.7cm/sMV A Ujuuiazs70.0cm/sE/A ratio0.5 TDI E/Lateral E'0.0E/Medial E'0.0 Tricuspid Valve TR Peak Uqtwiykh475zp/sTR Peak Gr.[id number] LEFT VENTRICLE The left ventricle cavity is small. There is normal left ventricular wall thickness. The LV systolic function is moderately to severely impaired. Paradoxic septum consistent right ventricle volume overload. Tissue Doppler imaging reveals abnormal left ventricular diastolic dysfunction. RIGHT VENTRICLE The right ventricle is severely dilated. There is normal right ventricular wall thickness. The ventricular septum is flattened and bows toward the left ventricle suggestive of elevated right ventricular pressure. Systolic function is moderately to severely reduced. ATRIA The left atrium size is normal. The right atrium is severely dilated. The interatrial septum bows toward left atrium consistent with elevated right atrial pressure. AORTIC VALVE The aortic valve is normal in structure. No aortic regurgitation is present. There is no aortic valvular stenosis. There is no aortic valvular vegetation. MITRAL VALVE The mitral valve is normal in structure. There is no evidence of mitral valve prolapse. There is no mitral valve stenosis. There is no mitral valve regurgitation noted. TRICUSPID VALVE The tricuspid valve is normal in structure. There is moderate tricuspid regurgitation. Right ventricular systolic pressure is estimated at greater than 60 mmHg. There is severe pulmonary hypertension. PULMONIC VALVE The pulmonic valve is not well visualized. Pulmonic regurgitation is present, but cannot assess severity. GREAT VESSELS The aortic root is normal in size. PERICARDIAL EFFUSION There is a small-moderate loculated in the apex pericardial effusion. <Conclusion> The LV systolic function is moderately to severely impaired. Diastolic dysfunction. RVE. GIOVANY. No aortic regurgitation is present. There is no mitral valve regurgitation noted. There is moderate tricuspid regurgitation. There is severe pulmonary hypertension. Pulmonary insufficiency cannot be assessed.
--- NOTE | 2017-06-04 17:10 | CP.PCM.PN ---
Subjective - Date & Time of Evaluation Date of Evaluation: 06/04/17 Time of Evaluation: 09:20 - Subjective Subjective: PGY2 medicine progress note for Dr. Anderson Patient seen and examined. Patient states he feels much better today and that he slept very well with BiPAP last night. Patient states edema in thighs has resolved but still has swelling in calves. Objective - Vital Signs/Intake and Output Vital Signs (last 24 hours): Temp Pulse Resp BP Pulse Ox 97.2 F L 89 20 114/73 95 06/04/17 15:00 06/04/17 15:00 06/04/17 15:00 06/04/17 16:27 06/04/17 15:00 Intake and Output: 06/04/17 06/04/17 06:59 18:59 Output Total 450 Balance -450 - Medications Medications: Current Medications Abacavir/Lamivudine (Epzicom) 1 tab PO DAILY [facility] Last Admin: 06/04/17 10:00 Dose: 1 tab Darunavir (Prezista) 800 mg PO DAILY [facility] Last Admin: 06/04/17 10:00 Dose: 800 mg Famotidine (Pepcid) 20 mg PO DAILY [facility] Last Admin: 06/04/17 11:28 Dose: 20 mg Furosemide (Lasix) 40 mg IVP DAILY@1030 [facility] Last Admin: 06/04/17 11:29 Dose: 40 mg Heparin Sodium (Porcine) (Heparin) 5,000 units SC Q12 [facility] Last Admin: 06/04/17 11:28 Dose: 5,000 units Methylprednisolone (Solu-Medrol) 40 mg IVP DAILY [facility] Last Admin: 06/04/17 11:28 Dose: 40 mg Ritonavir (Norvir) 100 mg PO DAILY [facility] Last Admin: 06/04/17 10:00 Dose: 100 mg - Labs Labs: 06/04/17 06:39 06/04/17 06:39 - Constitutional Appears: Non-toxic, No Acute Distress - Head Exam Head Exam: ATRAUMATIC, NORMOCEPHALIC - Eye Exam Eye Exam: EOMI - ENT Exam ENT Exam: Mucous Membranes Moist - Respiratory Exam Respiratory Exam: Clear to Ausculation Bilateral, NORMAL BREATHING PATTERN. absent: Respiratory Distress - Cardiovascular Exam Cardiovascular Exam: +S1, +S2 - GI/Abdominal Exam GI & Abdominal Exam: Soft, Normal Bowel Sounds. absent: Tenderness - Extremities Exam Additional comments: 2+ pitting edema of bilateral lower extremities to knee - Neurological Exam Neurological Exam: Alert, Awake, Oriented x3 - Psychiatric Exam Psychiatric exam: Normal Affect - Skin Skin Exam: Dry, Warm Assessment and Plan - Assessment and Plan (Free Text) Assessment: CHF exacerbation BNP 2940 CXR severe cardiomegaly, no active pulmonary disease lasix IV 40mg daily- giving extra dose today f/u echo report heart healthy diet, 2g sodium, 1500ml fluid restriction daily weights I/Os COPD exacerbation solumedrol 40mg IV daily continue to monitor O2 by NC Electrolyte imbalance magnesium and potassium repleted continue to monitor HTN continue lasix IV 40mg daily, gave one extra dose today Hyperglycemia patient on steroids denies history diabetes Hgb A1c 6.3 HIV continue home meds: ritonavir 100mg daily, prezista 800mg daily, abacavir- lamivudine 600-300 daily Hx Pulm HTN pt has been off bosentan for several months non-formulary here will check new Echo Hx Sleep Apnea patient completed sleep study as outpatient but never received CPAP patient with better sleep overnight with BiPAP 10/5 Prophylactic measure heparin 5000u sc q12h pepcid 20mg daily PT All medical management as per Dr. Anderson
[2017-06-05 01:22] VITALS: O2SAT 96
[2017-06-05 06:20] LABS: BASO % 0.1 % (0.0-2.0); HEMATOCRIT 39.2 % (35.0-51.0); LYMPH # 0.2 K/uL (1.0-4.3); LYMPH % 2.2 % (20.0-40.0); MEAN CELL VOLUME 92.6 fL (80.0-94.0); MEAN CORPUSCULAR HEMOGLOBIN 30.9 pg (27.0-31.0); MEAN CORPUSCULAR HGB CONC 33.4 g/dL (33.0-37.0); MEAN PLATELET VOLUME 9.9 fL (7.2-11.7); MONO # 0.2 K/uL (0.0-0.8); MONO % 3.1 % (0.0-10.0); PLATELET COUNT 73 K/uL (130-400); RED CELL DISTRIBUTION WIDTH 15.3 % (11.5-14.5); WHITE BLOOD COUNT 7.9 K/uL (4.8-10.8)
[2017-06-05 06:33] LABS: ALKALINE PHOSPHATASE 67 U/L (38-126); ALT/SGPT 34 U/L (21-72); AST/SGOT 40 U/L (17-59); BILIRUBIN,TOTAL 1.7 mg/dL (0.2-1.3); BLOOD UREA NITROGEN 40 mg/dL (9-20); CALCIUM 8.9 mg/dl (8.6-10.4); CARBON DIOXIDE 31 mmol/L (22-30); CHLORIDE 97 mmol/L (98-107); GFR AFRICAN-AMERICAN > 60; GLUCOSE,RANDOM 122 mg/dL (75-110); MAGNESIUM 1.4 mg/dL (1.6-2.3); PHOSPHOROUS 3.7 mg/dL (2.5-4.5); SODIUM 138 mmol/L (132-148); TOTAL PROTEIN 7.8 g/dL (6.3-8.3)
[2017-06-05 06:36] LABS: ALB/GLOB RATIO 0.9 (1.0-2.1)
[2017-06-05 07:39] VITALS: PULSE 72
[2017-06-05 08:10] VITALS: RESP 18; TEMP 97
[2017-06-05] MEDS: Abacavir/Lamivudine 600 mg-300 mg Tab PO SCH (09:31)
[2017-06-05] MEDS: MethylPREDNISolone 40 mg Vial IVP SCH (09:31)
[2017-06-05 09:32] VITALS: BP 122/71
[2017-06-05 09:37] LABS: NEUTROPHIL 95 % (50-75); TOTAL CELLS COUNTED 100
[2017-06-05 09:38] LABS: GIANT PLATELETS PRESENT; LARGE PLATELETS PRESENT
--- NOTE | 2017-06-05 11:29 | PCM.HF ---
Heart Failure Core Measure - Heart Failure Ejection Fraction: 40 % or Greater RADHA Inhibitor Prescribed: No Contraindication/Reason for not providing: renal dysfunction Beta-Melony Prescribed: None Contraindication/Reason for not providing: copd Angiotensin II Receptor Melony Prescribed: No Contraindication/Reason for not providing: renal dysfunction AnticoagulationTherapy for Atrial Fibrillation/Atrialflutter: No Contraindication/Reason for not providing: no afib Aldosterone Antagonist Prescribed: No Contraindication/Reason for not providing: ef >40 Hydralazine Nitrate Prescribed: No Contraindication/Reason for not providing: ef >40 Implantable Cardioverter Defibrillator Therapy: No Contraindication/Reason for not providing: ef >40 Cardiac Resynchronization Therapy Prescribed: No Contraindication/Reason for not providing: ef >40 - Follow up Will be discharged to: Home Follow Up Date (must be within 7 days from discharge): 06/08/17 Follow Up Time: 09:00
--- NOTE | 2017-06-07 22:21 | CARD ---
APPROVED REPORT EKG Measurement Heart [id number] <Conclusion> Sinus tachycardia Right bundle branch block Septal infarct, age undetermined T wave abnormality, consider inferior ischemia Abnormal ECG
== END 2017-06-05 13:30 | disposition home or self-care (01) | DRG 291 ==
LOC: C.ER 12:54 → C.9E 14:10 → C.6T 20:00
PROVIDERS: ADMIT Internal Medicine Pulmonary Disease; ATTEND Internal Medicine Pulmonary Disease
PROC: 5A09457 Assistance with Respiratory Ventilation, 24-96 Consecutive Hours, Continuous Positive Airway Pressure (ICD-10-PCS; principal; 2017-06-02)
DX: I11.0 Hypertensive heart disease with heart failure (principal); B20 Human immunodeficiency virus [HIV] disease; I42.9 Cardiomyopathy, unspecified; J44.1 Chronic obstructive pulmonary disease with (acute) exacerbation; I27.2 Other secondary pulmonary hypertension; I50.9 Heart failure, unspecified; G47.30 Sleep apnea, unspecified; Z91.14 Patient's other noncompliance with medication regimen; Z95.5 Presence of coronary angioplasty implant and graft; Z99.81 Dependence on supplemental oxygen

== ENCOUNTER 2017-06-18 15:18 | Inpatient (IN) | payer MEDICARE ==
[2017-06-18 15:19] VITALS: BMI 32.5
--- NOTE | 2017-06-18 16:58 | C.PDOC ---
History Of Present Illness 52 y/o male with past medical history of CHF presents to ED with complaints of leg swelling and sob. Patient states symptoms of progressively worsen making him unable to walk. Patient denies chest pain, injury, back pain or any other complaints at this time. PMD: Time Seen by Provider: 06/18/17 15:55 Chief Complaint (Nursing): Lower Extremity Problem/Injury History Per: Patient History/Exam Limitations: no limitations Onset/Duration Of Symptoms: Days Current Symptoms Are (Timing): Still Present Past Medical History Reviewed: Historical Data, Nursing Documentation, Vital Signs Vital Signs: Last Vital Signs Temp 98 F 06/22/17 15:44 Pulse 105 H 06/23/17 00:23 Resp 20 06/22/17 17:59 BP 107/74 06/22/17 17:59 Pulse Ox 99 06/22/17 17:59 - Medical History PMH: Asthma, Back Problems, CHF, COPD, Emphysema, HIV (Compliant with medications; Unknown CD4 count), HTN, Peripheral Edema, Pneumonia Surgical History: Coronary Stent (x2) - [employer] Procedures ASSISTANCE WITH RESPIRATORY VENTILATION, 24-96 HRS, CPAP (06/02/17) ASSISTANCE WITH RESPIRATORY VENTILATION, <24 HRS, CPAP (08/09/16) CORONAR ARTERIOGR-2 CATH (12/30/13) EXCISION OF MINOR SALIVARY GLAND, PERC APPROACH, DIAGN (01/29/16) RT & LT HEART ANGIOCARD (12/30/13) RT/LEFT HEART CARD CATH (12/30/13) ULTRASONOGRAPHY OF NECK (01/29/16) Family History: States: No Known Family Hx - Social History Hx Tobacco Use: No Hx Alcohol Use: No Hx Substance Use: No - Immunization History Hx Tetanus Toxoid Vaccination: Yes Hx Influenza Vaccination: No Hx Pneumococcal Vaccination: Yes Review Of Systems Except As Marked, All Systems Reviewed And Found Negative. Respiratory: Positive for: Shortness of Breath Musculoskeletal: Positive for: Other (Leg swelling) Physical Exam - Physical Exam Appears: Non-toxic, No Acute Distress Skin: Normal Color, Warm, Dry, No Rash Head: Atraumatic, Normacephalic Oral Mucosa: Moist Neck: Normal ROM, Supple Chest: Symmetrical Cardiovascular: Rhythm Regular Respiratory: Decreased Breath Sounds, No Rales, No Rhonchi, No Wheezing Gastrointestinal/Abdominal: Soft, No Tenderness, No Guarding, No Rebound Extremity: No Deformity, Swelling (to lower extremities), Other (Anasarca) Neurological/Psych: Oriented x3, Normal Motor, Normal Sensation ED Course And Treatment - Laboratory Results Result Diagrams: 06/22/17 11:40 06/22/17 11:40 ECG: Interpreted By Me, Viewed By Me ECG Rhythm: Sinus Rhythm, R BBB Rate From EC (bpm) O2 Sat by Pulse Oximetry: 92 (RA) Pulse Ox Interpretation: Normal - Radiology CXR: Interpreted by Me, Viewed By Me CXR Interpretation: Yes: Cardiomegaly, Other (CHF) Medical Decision Making Medical Decision Making: Plan: ECG, CXR, Blood work, Lasix Progress: Spoke to PMD DR. Anderson, agreed to admit patient to TELE for CHF Disposition Discussed With .: Anant Anderson Doctor Will See Patient In The: Hospital Counseled Patient/Family Regarding: Studies Performed, Diagnosis - Disposition Disposition: HOSPITALIZED Disposition Time: 15:00 Condition: FAIR - Clinical Impression Clinical Impression: CHF (congestive heart failure), NYHA class II - Scribe Statement The provider has reviewed the documentation as recorded by the Elmeribbrady Basilio All medical record entries made by the Elmeribbrady were at my direction and personally dictated by me. I have reviewed the chart and agree that the record accurately reflects my personal performance of the history, physical exam, medical decision making, and the department course for this patient. I have also personally directed, reviewed, and agree with the discharge instructions and disposition.
[2017-06-18 17:13] LABS: BASO # 0.1 K/uL (0.0-0.2); EOS % 0.8 % (0.0-4.0); HEMATOCRIT 38.5 % (35.0-51.0); LYMPH # 0.5 K/uL (1.0-4.3); LYMPH % 9.8 % (20.0-40.0); MEAN CELL VOLUME 91.6 fL (80.0-94.0); MEAN CORPUSCULAR HEMOGLOBIN 31.5 pg (27.0-31.0); MEAN CORPUSCULAR HGB CONC 34.4 g/dL (33.0-37.0); MEAN PLATELET VOLUME 9.5 fL (7.2-11.7); MONO # 0.6 K/uL (0.0-0.8); MONO % 11.9 % (0.0-10.0); NRBC % 0.1 % (0.0-2.0); PLATELET COUNT 72 K/uL (130-400); RED CELL DISTRIBUTION WIDTH 15.7 % (11.5-14.5); WHITE BLOOD COUNT 5.2 K/uL (4.8-10.8)
[2017-06-18 17:22] LABS: ALB/GLOB RATIO 0.8 (1.0-2.1); CALCIUM 8.5 mg/dl (8.6-10.4); TOTAL PROTEIN 8.2 g/dL (6.3-8.3)
[2017-06-18 17:33] LABS: TROPONIN I 0.062 ng/mL (0.00-0.120)
[2017-06-18] MEDS ORDERED: Potassium Chloride 20 mEq ER Tab PO STA (18:05)
[2017-06-18] MEDS ORDERED: Potassium Chloride 20 mEq ER Tab PO ONE (18:14)
[2017-06-18 18:29] LABS: EOSINOPHIL 2 % (0-4); NEUTROPHIL 83 % (50-75); TOTAL CELLS COUNTED 100
--- NOTE | 2017-06-18 20:02 | RAD ---
HISTORY: COMPARISON: 06/02/2017. TECHNIQUE: Chest PA and lateral FINDINGS: LINES AND TUBES: None. LUNG AND PLEURA: The lungs are well inflated and clear. HEART AND MEDIASTINUM: There is redemonstration of severe cardiomegaly. The hilar and mediastinal contours are within normal limits. SKELETAL STRUCTURES: The bony structures are within normal limits for the patient's age. VISUALIZED UPPER ABDOMEN: Normal. OTHER FINDINGS: None. IMPRESSION: Severe cardiomegaly. No active pulmonary disease.
[2017-06-19] MEDS: MethylPREDNISolone 40 mg Vial IVP SCH ×4 (00:33→18:28)
[2017-06-19] MEDS: Albuterol-Ipratrop 3 mg / 0.5 (3 ml) UD INH SCH ×5 (01:04→19:56)
[2017-06-19 07:35] LABS: BASO % 0.4 % (0.0-2.0); EOS % 0.3 % (0.0-4.0); HEMATOCRIT 38.6 % (35.0-51.0); LYMPH # 0.3 K/uL (1.0-4.3); LYMPH % 7.9 % (20.0-40.0); MEAN CELL VOLUME 92.1 fL (80.0-94.0); MEAN CORPUSCULAR HEMOGLOBIN 31.2 pg (27.0-31.0); MEAN CORPUSCULAR HGB CONC 33.9 g/dL (33.0-37.0); MEAN PLATELET VOLUME 10.1 fL (7.2-11.7); MONO # 0.1 K/uL (0.0-0.8); MONO % 2.5 % (0.0-10.0); NRBC % 0.1 % (0.0-2.0); PLATELET COUNT 68 K/uL (130-400); RED CELL DISTRIBUTION WIDTH 15.9 % (11.5-14.5); WHITE BLOOD COUNT 3.7 K/uL (4.8-10.8)
[2017-06-19 07:47] LABS: POTASSIUM 4.2 mmol/L (3.6-5.2)
[2017-06-19 07:51] LABS: CALCIUM 8.6 mg/dl (8.6-10.4)
[2017-06-19 09:36] LABS: NEUTROPHIL 97 % (50-75); TOTAL CELLS COUNTED 100
[2017-06-19 09:37] LABS: LARGE PLATELETS PRESENT
[2017-06-19] MEDS: Abacavir/Lamivudine 600 mg-300 mg Tab PO SCH (10:12)
[2017-06-20] MEDS: MethylPREDNISolone 40 mg Vial IVP SCH ×4 (00:13→17:41)
[2017-06-20] MEDS: Albuterol-Ipratrop 3 mg / 0.5 (3 ml) UD INH SCH ×4 (01:13→19:52)
--- NOTE | 2017-06-20 04:27 | CP.PCM.PCO ---
Physician Communication Note - Physician Communication Note Physician Communication Note: pt's HR in 130-140s for 4 hours, per nurse, given 3.125mg coreg, hx of CHF
[2017-06-20] MEDS: Abacavir/Lamivudine 600 mg-300 mg Tab PO SCH (10:36)
--- NOTE | 2017-06-20 16:05 | HP ---
HISTORY OF PRESENT ILLNESS: The patient is a 52-year-old male came with complaint of shortness of breath and weakness. The patient came to the hospital, advised admission. PHYSICAL EXAMINATION: GENERAL: The patient is awake, alert, and oriented. VITAL SIGNS: Temperature 98, pulse 70. HEENT: Within normal limits. NECK: Supple. CHEST: Symmetrical. HEART: Regular. ABDOMEN: Soft. EXTREMITIES: No edema. IMPRESSION: 1. Congestive heart failure. 2. Pulmonary hypertension. 3. Chronic obstruction pulmonary disease. 4. Sleep apnea. 5. Human immunodeficiency virus disease. PLAN: The patient needs bedrest, , bronchodilator. Anant Anderson MD
[2017-06-21] MEDS: MethylPREDNISolone 40 mg Vial IVP SCH ×4 (00:39→18:03)
[2017-06-21] MEDS: Albuterol-Ipratrop 3 mg / 0.5 (3 ml) UD INH SCH ×4 (01:14→20:27)
[2017-06-21] MEDS: Abacavir/Lamivudine 600 mg-300 mg Tab PO SCH (09:23)
[2017-06-21] MEDS ORDERED: Dextrose 50% SYRINGE Inj (50 ml) IV PRN (13:28)
[2017-06-21] MEDS ORDERED: Glucagon Recombinant 1 mg Inj IM PRN (13:28)
--- NOTE | 2017-06-21 13:31 | CP.PCM.PN ---
Subjective - Date & Time of Evaluation Date of Evaluation: 06/21/17 Time of Evaluation: 13:45 - Subjective Subjective: Pt seen and examined at bedside this AM; expressing depressive symptoms that he feels like too many things are happening to him right now and that it is too much to handle; otherwise feels better in terms of SOB, denies all other symptoms. Objective - Vital Signs/Intake and Output Vital Signs (last 24 hours): Temp Pulse Resp BP Pulse Ox 98.0 F 84 20 115/78 99 06/21/17 07:30 06/21/17 07:30 06/21/17 07:30 06/21/17 09:23 06/21/17 07:30 - Medications Medications: Current Medications Abacavir/Lamivudine (Epzicom) 1 tab PO DAILY [facility] Last Admin: 06/21/17 09:23 Dose: 1 tab Albuterol/Ipratropium (Duoneb 3 Mg/0.5 Mg (3 Ml) Ud) 3 ml INH RQ6 [facility] Last Admin: 06/21/17 13:17 Dose: 3 ml Alprazolam (Xanax) 2 mg PO Q8H PRN PRN Reason: Anxiety Last Admin: 06/21/17 10:51 Dose: 2 mg Carvedilol (Coreg) 6.25 mg PO BID [facility] Last Admin: 06/21/17 10:51 Dose: 6.25 mg Darunavir (Prezista) 800 mg PO DAILY [facility] Last Admin: 06/21/17 09:23 Dose: 800 mg Escitalopram Oxalate (Lexapro) 10 mg PO HS [facility] Furosemide (Lasix) 40 mg IVP DAILY [facility] Last Admin: 06/21/17 09:23 Dose: 40 mg Lisinopril (Zestril) 2.5 mg PO DAILY [facility] Last Admin: 06/21/17 11:26 Dose: 2.5 mg Methylprednisolone (Solu-Medrol) 20 mg IVP Q6 [facility] Last Admin: 06/21/17 11:27 Dose: 20 mg Ritonavir (Norvir) 100 mg PO DAILY [facility] Last Admin: 06/21/17 09:23 Dose: 100 mg - Labs Labs: 06/19/17 07:20 06/19/17 07:20 - Constitutional Appears: No Acute Distress - Head Exam Head Exam: ATRAUMATIC - Eye Exam Eye Exam: EOMI Pupil Exam: PERRL - ENT Exam ENT Exam: Mucous Membranes Moist - Neck Exam Neck Exam: Full ROM - Respiratory Exam Respiratory Exam: Wheezes - Cardiovascular Exam Cardiovascular Exam: REGULAR RHYTHM - GI/Abdominal Exam GI & Abdominal Exam: Soft, Normal Bowel Sounds - Extremities Exam Extremities Exam: absent: Calf Tenderness - Back Exam Back Exam: absent: CVA tenderness (L), CVA tenderness (R) - Neurological Exam Neurological Exam: Alert, Awake, Oriented x3 - Psychiatric Exam Psychiatric exam: Depressed - Skin Skin Exam: Warm Assessment and Plan - Assessment and Plan (Free Text) Assessment: 52yo M admitted for CHF exacerbation CHF Exacerbation; diastolic dysfunction preserved EF -Last echo in 05/30; diastolic dysfunction with preserved EF w/ severe pulm HTN -patient has CAD -c/w Coreg, Lasix -allergies to Aspirin -Lisinopril low dose Pulm HTN -patient was previously on Bosentan; has not been taking -patient given Viagra until he can get Bosentan sent to home -Neither are on formulary, however will be doing meds to beds and should have viagra and patient can take this med as his own TID 20mg Diabetes Type 2 -RISS -hypoglycemia protocol -Lisinopril 2.5mg low dose HIV Infection; Chronic -c/w ART Depression -started lexapro HS -denies SI/HI; no plan to hurt self Proph -Heart Healthy Diet -Meds to bed being used so patient can have access to his medications -Pepcid/Lovenox All management as per Dr. Anderson
[2017-06-21] MEDS: Enoxaparin 40 mg Syringe SC SCH (15:25)
[2017-06-21] MEDS: (Novolog) Insulin Aspart, Recombinant 100 u/ml 10 ml vial SC SCH ×2 (18:03→21:40)
[2017-06-22] MEDS: MethylPREDNISolone 40 mg Vial IVP SCH ×5 (00:23→23:55)
[2017-06-22] MEDS: Albuterol-Ipratrop 3 mg / 0.5 (3 ml) UD INH SCH ×4 (01:08→20:59)
[2017-06-22] MEDS: (Novolog) Insulin Aspart, Recombinant 100 u/ml 10 ml vial SC SCH ×4 (08:30→22:02)
--- NOTE | 2017-06-22 09:03 | CP.PCM.PN ---
Subjective - Date & Time of Evaluation Date of Evaluation: 06/22/17 Time of Evaluation: 10:00 - Subjective Subjective: Dr. Anderson note: Patient with a history of CHF, COPD, HIV, and HTN is here for shortness of breath and fluid overload. He is still short of breath and is very drowsy and lethargic at bedside. No acute events overnight per nursing staff. According to the vocational case manager he cannot afford his home oxygen due to a insurance issue. He is still complaining of body aches and shortness of breath. Objective - Vital Signs/Intake and Output Vital Signs (last 24 hours): Temp Pulse Resp BP Pulse Ox 98.8 F 82 18 119/71 97 06/22/17 07:30 06/22/17 07:30 06/22/17 07:30 06/22/17 07:30 06/22/17 07:30 - Medications Medications: Current Medications Abacavir/Lamivudine (Epzicom) 1 tab PO DAILY [facility] Last Admin: 06/21/17 09:23 Dose: 1 tab Albuterol/Ipratropium (Duoneb 3 Mg/0.5 Mg (3 Ml) Ud) 3 ml INH RQ6 [facility] Last Admin: 06/22/17 08:28 Dose: 3 ml Alprazolam (Xanax) 2 mg PO Q8H PRN PRN Reason: Anxiety Last Admin: 06/22/17 07:09 Dose: 2 mg Carvedilol (Coreg) 6.25 mg PO BID [facility] Last Admin: 06/21/17 21:45 Dose: Not Given Darunavir (Prezista) 800 mg PO DAILY [facility] Last Admin: 06/21/17 09:23 Dose: 800 mg Dextrose (Dextrose 50% Inj) 0 ml IV STAT PRN; Protocol PRN Reason: Hyglycemia Protocol Dextrose (Glutose 15) 0 gm PO ONCE PRN; Protocol PRN Reason: Hypoglycemia Protocol Enoxaparin Sodium (Lovenox) 40 mg SC DAILY [facility] Last Admin: 06/21/17 15:25 Dose: 40 mg Escitalopram Oxalate (Lexapro) 10 mg PO HS [facility] Last Admin: 06/21/17 21:41 Dose: 10 mg Famotidine (Pepcid) 40 mg PO DAILY [facility] Last Admin: 06/21/17 15:25 Dose: 40 mg Furosemide (Lasix) 40 mg IVP DAILY [facility] Last Admin: 10/09/17 09:23 Dose: 40 mg Glucagon (Glucagen Diagnostic Kit) 0 mg IM STAT PRN; Protocol PRN Reason: Hypoglycemia Protocol Dextrose (Dextrose 5% In Water 1000 Ml) 1,000 mls @ 0 mls/hr IV .Q0M PRN; Protocol; Per Protocol PRN Reason: Hypoglycemia Protocol Insulin Aspart (Novolog) 0 unit SC ACHS [facility] PRN Reason: Protocol Last Admin: 06/22/17 08:30 Dose: 1 unit Lisinopril (Zestril) 2.5 mg PO DAILY [facility] Last Admin: 06/21/17 11:26 Dose: 2.5 mg Methylprednisolone (Solu-Medrol) 20 mg IVP Q6 [facility] Last Admin: 06/22/17 05:37 Dose: 20 mg Ritonavir (Norvir) 100 mg PO DAILY [facility] Last Admin: 06/21/17 09:23 Dose: 100 mg - Labs Labs: 06/19/17 07:20 06/19/17 07:20 - Constitutional Appears: Non-toxic, No Acute Distress - Eye Exam Eye Exam: PERRL - ENT Exam ENT Exam: Normal Exam - Respiratory Exam Respiratory Exam: Clear to Ausculation Bilateral. absent: Rales, Rhonchi, Wheezes - Cardiovascular Exam Cardiovascular Exam: REGULAR RHYTHM, RRR, +S1, +S2. absent: Gallop, Rubs - GI/Abdominal Exam GI & Abdominal Exam: Soft, Normal Bowel Sounds. absent: Tenderness - Extremities Exam Extremities Exam: Normal Inspection. absent: Pedal Edema - Psychiatric Exam Psychiatric exam: Normal Affect, Normal Mood - Skin Skin Exam: Normal Color Assessment and Plan - Assessment and Plan (Free Text) Assessment: CHF Exacerbation; diastolic dysfunction preserved EF 06/23: continue with Lasix 40mg IVP, coreg 6.25mg bid, I&Os, nasal canula Last echo in 05/30; diastolic dysfunction with preserved EF w/ severe pulm HTN -patient has CAD -c/w Coreg, Lasix -allergies to Aspirin -Lisinopril low dose COPD: 06/23: Continue with duoneb q6h and Solumedrol 20mg Q6, Room air abg today, patient will need home oxygen set up. Pulm HTN 06/23: Room air ABG is preformed which showed very low oxygen saturation and CO2 , nasal canula patient was previously on Bosentan; has not been taking -patient given Viagra until he can get Bosentan sent to home -Neither are on formulary, however will be doing meds to beds and should have viagra and patient can take this med as his own TID 20mg Diabetes Type 2 -RISS -hypoglycemia protocol -Lisinopril 2.5mg low dose HIV Infection; Chronic -c/w ART Depression -started lexapro HS -denies SI/HI; no plan to hurt self Proph -Heart Healthy Diet -Meds to bed being used so patient can have access to his medications -Pepcid/Lovenox
[2017-06-22] MEDS: Enoxaparin 40 mg Syringe SC SCH (09:13)
[2017-06-22] MEDS: Abacavir/Lamivudine 600 mg-300 mg Tab PO SCH (09:14)
[2017-06-22 11:25] LABS: ARTERIAL BLOOD HGB O2 SAT 89.1 % (95.0-98.0); CARBOXYHEMOGLOBIN 2.1 % (0.5-1.5); DRAW SITE LR; HHB 7.9 % (0.0-5.0); METHEMOGLOBIN 0.9 % (0.0-3.0)
[2017-06-22 11:49] LABS: BASO % 0.1 % (0.0-2.0); HEMATOCRIT 42.9 % (35.0-51.0); LYMPH # 0.2 K/uL (1.0-4.3); LYMPH % 2.1 % (20.0-40.0); MEAN CELL VOLUME 92.6 fL (80.0-94.0); MEAN CORPUSCULAR HEMOGLOBIN 31.1 pg (27.0-31.0); MEAN CORPUSCULAR HGB CONC 33.6 g/dL (33.0-37.0); MEAN PLATELET VOLUME 10.3 fL (7.2-11.7); MONO # 0.2 K/uL (0.0-0.8); PLATELET COUNT 72 K/uL (130-400); RED CELL DISTRIBUTION WIDTH 15.9 % (11.5-14.5); WHITE BLOOD COUNT 7.3 K/uL (4.8-10.8)
[2017-06-22 12:21] LABS: POTASSIUM 4.2 mmol/L (3.6-5.2)
[2017-06-22 12:23] LABS: ALB/GLOB RATIO 0.8 (1.0-2.1); BILIRUBIN,TOTAL 2.6 mg/dL (0.2-1.3); TOTAL PROTEIN 8.1 g/dL (6.3-8.3)
[2017-06-22 12:24] LABS: MAGNESIUM 1.8 mg/dL (1.6-2.3); PHOSPHOROUS 4.9 mg/dL (2.5-4.5)
[2017-06-22 12:25] LABS: NEUTROPHIL 93 % (50-75); TOTAL CELLS COUNTED 100
[2017-06-22 20:17] LABS: ARTERIAL BLOOD GAS MODE BiPAP; DRAW SITE RRA
--- NOTE | 2017-06-22 20:51 | CP.PCM.CON ---
History of Present Illness - History of Present Illness History of Present Illness: [facility] Asked to see patient who is 52 yo male with hx HIV /dCHF /COPD /DM/ Pulm HTN/ HTN/Anxiety /Depression. Pt was noted to be lethargic and was switched from NC O2 to BIPAP 2 hrs ago. When seen by me pt responds appropriatly and says breathing better. Denied pain /n /v /cough. Was given lasix by housestaff. ROS- as ntoed All- PCN /Shellfish /asa /shrimp /egg Social- ex-tob/ no etoh or drugs Meds- reviewed FH- Unknown PE T- 98 P-108 R-24 BP148/90 Resting, responds to voice and questioning appropriately Neck- no jvdlungs- bilat bs, tr. basilar crackles Heart-rr aBd- benign eXt- bilat LE pitting edema Neuro- nonfocal Labs,f-nzbn-fjpqvqpi A&P CHF COPD HIV HTN DM Pulm HTN WAQAR Anxiety /Depression cont BIPAP titrate O2 cont meds /diuresis agree with holding Psych meds for lethargy maitain optimal lytes f/u ABG /labs cont telemetry monitoring No need for ICU re-consult PRN Past Patient History - Infectious Disease Hx of Infectious Diseases: None - Past Medical History & Family History Past Medical History?: Yes - Past Social History Smoking Status: Former Smoker - CARDIAC Hx Cardiac Disorders: Yes Hx Congestive Heart Failure: Yes Hx Hypertension: Yes - PULMONARY Hx Chronic Obstructive Pulmonary Disease (COPD): Yes - NEUROLOGICAL Hx Neurological Disorder: No - HEENT Hx HEENT Problems: No - RENAL Hx Chronic Kidney Disease: No - ENDOCRINE/METABOLIC Hx Diabetes Mellitus Type 2: No - HEMATOLOGICAL/ONCOLOGICAL Hx Blood Disorders: Yes Hx Human Immunodeficiency Virus (HIV): Yes (Compliant with medications; Unknown CD4 count) - INTEGUMENTARY Hx Dermatological Problems: No - MUSCULOSKELETAL/RHEUMATOLOGICAL Hx Falls: Yes - GASTROINTESTINAL Hx Gastrointestinal Disorders: No - GENITOURINARY/GYNECOLOGICAL Hx Genitourinary Disorders: No - PSYCHIATRIC Hx Substance Use: No - SURGICAL HISTORY Hx Surgeries: Yes Hx Coronary Stent: Yes (x2) - ANESTHESIA Hx Anesthesia: Yes Hx Anesthesia Reactions: No Hx Malignant Hyperthermia: No Has any member of the family had a problem w/ anesthesia?: No Meds Home Medications: Home Medication List Medication Instructions Recorded Confirmed Type Abacavir Sulfate/Lamivudine 1 each PO DAILY #30 tablet 06/21/17 Rx [Abacavir-Lamivudine 600-300 mg] Bosentan [Tracleer] 62.5 mg PO BID #180 tablet 06/21/17 Rx Carvedilol [Coreg] 6.25 mg PO BID #180 tablet 06/21/17 Rx Darunavir [Prezista] 800 mg PO DAILY #30 tab 06/21/17 Rx Ergocalciferol (Vitamin D2) 2,000 iu PO DAILY #30 tab 06/21/17 Rx [Vitamin D2] Escitalopram [Lexapro] 10 mg PO HS #30 tab 06/21/17 Rx Lisinopril 2.5 mg PO DAILY #90 tablet 06/21/17 Rx MetFORMIN [glucOPHAGE] 1,000 mg PO BID #180 tab 06/21/17 Rx Ritonavir [Norvir] 100 mg PO DAILY #30 cap 06/21/17 Rx Sildenafil Citrate [Viagra] 25 mg PO TID 30 Days #90 tablet 06/21/17 Rx Allergies/Adverse Reactions: Allergies Allergy/AdvReac Type Severity Reaction Status Date / Time shellfish derived Allergy Severe ANAPHYLAXIS Verified 06/18/17 15:33 aspirin Allergy ANAPHYLAXIS Verified 06/18/17 15:33 EGG Allergy ITCHING Verified 06/18/17 15:33 Penicillins Allergy RASH Verified 06/18/17 15:33 shrimp Allergy ANAPHYLAXIS Verified 06/18/17 15:33 - Medications Medications: Current Medications Abacavir/Lamivudine (Epzicom) 1 tab PO DAILY [facility] Last Admin: 06/22/17 09:14 Dose: 1 tab Acetaminophen (Tylenol 325mg Tab) 650 mg PO Q6 PRN PRN Reason: Pain, severe (8-10) Albuterol/Ipratropium (Duoneb 3 Mg/0.5 Mg (3 Ml) Ud) 3 ml INH RQ6 [facility] Last Admin: 06/22/17 13:43 Dose: 3 ml Carvedilol (Coreg) 6.25 mg PO BID [facility] Last Admin: 06/22/17 19:08 Dose: Not Given Darunavir (Prezista) 800 mg PO DAILY [facility] Last Admin: 06/22/17 09:14 Dose: 800 mg Dextrose (Dextrose 50% Inj) 0 ml IV STAT PRN; Protocol PRN Reason: Hyglycemia Protocol Dextrose (Glutose 15) 0 gm PO ONCE PRN; Protocol PRN Reason: Hypoglycemia Protocol Enoxaparin Sodium (Lovenox) 40 mg SC DAILY [facility] Last Admin: 06/22/17 09:13 Dose: 40 mg Escitalopram Oxalate (Lexapro) 10 mg PO HS [facility] Last Admin: 06/21/17 21:41 Dose: 10 mg Famotidine (Pepcid) 40 mg PO DAILY [facility] Last Admin: 06/22/17 09:13 Dose: 40 mg Furosemide (Lasix) 40 mg IVP DAILY [facility] Last Admin: 06/22/17 09:13 Dose: 40 mg Glucagon (Glucagen Diagnostic Kit) 0 mg IM STAT PRN; Protocol PRN Reason: Hypoglycemia Protocol Dextrose (Dextrose 5% In Water 1000 Ml) 1,000 mls @ 0 mls/hr IV .Q0M PRN; Protocol; Per Protocol PRN Reason: Hypoglycemia Protocol Insulin Aspart (Novolog) 0 unit SC ACHS [facility] PRN Reason: Protocol Last Admin: 06/22/17 16:30 Dose: Not Given Lisinopril (Zestril) 2.5 mg PO DAILY [facility] Last Admin: 06/22/17 09:14 Dose: 2.5 mg Methylprednisolone (Solu-Medrol) 20 mg IVP Q6 [facility] Last Admin: 06/22/17 19:06 Dose: 20 mg Ritonavir (Norvir) 100 mg PO DAILY [facility] Last Admin: 06/22/17 09:14 Dose: 100 mg Results - Vital Signs Recent Vital Signs: Last Vital Signs Temp 98 F 06/22/17 15:44 Pulse 108 H 06/22/17 17:59 Resp 20 06/22/17 15:44 BP 148/90 06/22/17 17:59 Pulse Ox 99 06/22/17 15:44 - Labs Result Diagrams: 06/22/17 11:40 06/22/17 11:40 Labs: Laboratory Results - last 24 hr 06/21/17 06/22/17 06/22/17 21:32 06:39 11:22 WBC RBC Hgb Hct MCV MCH MCHC RDW Plt Count MPV Neut % (Auto) Lymph % (Auto) [place] % (Auto) Eos % (Auto) Baso % (Auto) Neut # Lymph # [place] # Eos # Baso # Neutrophils % (Manual) Lymphocytes % (Manual) Monocytes % (Manual) Platelet Estimate RBC Morphology Puncture Site Lr pCO2 36 pO2 54 L HCO3 28.5 H ABG pH 7.50 H ABG Total CO2 29.2 H ABG O2 Saturation 91.9 L ABG Base Excess 4.8 H ABG Hemoglobin 12.5 ABG Carboxyhemoglobin 2.1 H POC ABG HHb (Measured) 7.9 H ABG Methemoglobin 0.9 Rajeev Test Na ABG Potassium A-a O2 Difference 51.0 Respiratory Index 0.9 Hgb O2 Saturation 89.1 L Glucose Lactate Vent Mode FiO2 21.0 Inspiratory BiPAP Expiratory BiPAP Sodium Potassium Chloride Carbon Dioxide Anion Gap BUN Creatinine Est GFR ( Amer) Est GFR (Non-Af Amer) POC Glucose (mg/dL) 106 183 H Random Glucose Calcium Phosphorus Magnesium Total Bilirubin AST ALT Alkaline Phosphatase Total Protein Albumin Globulin Albumin/Globulin Ratio Arterial Blood Potassium 06/22/17 06/22/17 06/22/17 11:25 11:40 11:40 WBC 7.3 D RBC 4.63 Hgb 14.4 Hct 42.9 MCV 92.6 MCH 31.1 H MCHC 33.6 RDW 15.9 H Plt Count 72 L MPV 10.3 Neut % (Auto) 94.8 H Lymph % (Auto) 2.1 L [place] % (Auto) 3.0 Eos % (Auto) 0.0 Baso % (Auto) 0.1 Neut # 6.9 Lymph # 0.2 L [place] # 0.2 Eos # 0.0 Baso # 0.0 Neutrophils % (Manual) 93 H Lymphocytes % (Manual) 5 L Monocytes % (Manual) 2 Platelet Estimate Decreased L RBC Morphology Normal Puncture Site pCO2 pO2 HCO3 ABG pH ABG Total CO2 ABG O2 Saturation ABG Base Excess ABG Hemoglobin ABG Carboxyhemoglobin POC ABG HHb (Measured) ABG Methemoglobin Rajeev Test ABG Potassium A-a O2 Difference Respiratory Index Hgb O2 Saturation Glucose Lactate Vent Mode FiO2 Inspiratory BiPAP Expiratory BiPAP Sodium 130 L Potassium 4.2 Chloride 92 L Carbon Dioxide 24 Anion Gap 18 BUN 53 H Creatinine 1.8 H Est GFR ( Amer) 48 Est GFR (Non-Af Amer) 40 POC Glucose (mg/dL) 175 H Random Glucose 148 H Calcium 9.0 Phosphorus 4.9 H Magnesium 1.8 Total Bilirubin 2.6 H AST 55 ALT 50 Alkaline Phosphatase 75 Total Protein 8.1 Albumin 3.7 Globulin 4.5 H Albumin/Globulin Ratio 0.8 L Arterial Blood Potassium 06/22/17 06/22/17 16:07 20:15 WBC RBC Hgb Hct MCV MCH MCHC RDW Plt Count MPV Neut % (Auto) Lymph % (Auto) [place] % (Auto) Eos % (Auto) Baso % (Auto) Neut # Lymph # [place] # Eos # Baso # Neutrophils % (Manual) Lymphocytes % (Manual) Monocytes % (Manual) Platelet Estimate RBC Morphology Puncture Site Rra pCO2 40 pO2 129 H HCO3 31.4 H ABG pH 7.51 H ABG Total CO2 33.1 H ABG O2 Saturation 99.4 H ABG Base Excess 8.2 H ABG Hemoglobin ABG Carboxyhemoglobin POC ABG HHb (Measured) ABG Methemoglobin Rajeev Test Na ABG Potassium 3.7 A-a O2 Difference 249.0 Respiratory Index 1.9 Hgb O2 Saturation Glucose 149 H Lactate 1.4 Vent Mode Bipap FiO2 60.0 Inspiratory BiPAP 16 Expiratory BiPAP 5 Sodium 136.0 Potassium Chloride 103.0 Carbon Dioxide Anion Gap BUN Creatinine Est GFR ( Amer) Est GFR (Non-Af Amer) POC Glucose (mg/dL) 195 H Random Glucose Calcium Phosphorus Magnesium Total Bilirubin AST ALT Alkaline Phosphatase Total Protein Albumin Globulin Albumin/Globulin Ratio Arterial Blood Potassium 3.7 Assessment & Plan (1) CHF (congestive heart failure), NYHA class II Status: Acute (2) COPD exacerbation Status: Acute (3) WAQAR (acute kidney injury) Status: Acute (4) Pulmonary hypertension Status: Chronic (5) HIV (human immunodeficiency virus infection) Status: Chronic Onset Date: 01/13/14
[2017-06-23] MEDS: Albuterol-Ipratrop 3 mg / 0.5 (3 ml) UD INH SCH ×2 (02:00→07:51)
[2017-06-23] MEDS: MethylPREDNISolone 40 mg Vial IVP SCH ×3 (05:22→18:46)
--- NOTE | 2017-06-23 07:10 | CP.PCM.PN ---
Objective - Vital Signs/Intake and Output Vital Signs (last 24 hours): Temp Pulse Resp BP Pulse Ox 97.4 F L 110 H 20 102/71 94 L 06/23/17 04:42 06/23/17 04:42 06/23/17 04:42 06/23/17 04:42 06/23/17 04:42 Intake and Output: 06/23/17 06/23/17 06:59 18:59 Output Total 350 Balance -350 - Medications Medications: Current Medications Abacavir/Lamivudine (Epzicom) 1 tab PO DAILY [facility] Last Admin: 06/22/17 09:14 Dose: 1 tab Acetaminophen (Tylenol 325mg Tab) 650 mg PO Q6 PRN PRN Reason: Pain, severe (8-10) Albuterol/Ipratropium (Duoneb 3 Mg/0.5 Mg (3 Ml) Ud) 3 ml INH RQ6 [facility] Last Admin: 06/23/17 02:00 Dose: 3 ml Carvedilol (Coreg) 6.25 mg PO BID [facility] Last Admin: 06/22/17 19:08 Dose: Not Given Darunavir (Prezista) 800 mg PO DAILY [facility] Last Admin: 06/22/17 09:14 Dose: 800 mg Dextrose (Dextrose 50% Inj) 0 ml IV STAT PRN; Protocol PRN Reason: Hyglycemia Protocol Dextrose (Glutose 15) 0 gm PO ONCE PRN; Protocol PRN Reason: Hypoglycemia Protocol Enoxaparin Sodium (Lovenox) 40 mg SC DAILY [facility] Last Admin: 06/22/17 09:13 Dose: 40 mg Escitalopram Oxalate (Lexapro) 10 mg PO HS [facility] Last Admin: 06/22/17 22:02 Dose: Not Given Famotidine (Pepcid) 40 mg PO DAILY [facility] Last Admin: 06/22/17 09:13 Dose: 40 mg Furosemide (Lasix) 40 mg IVP DAILY [facility] Last Admin: 06/22/17 09:13 Dose: 40 mg Glucagon (Glucagen Diagnostic Kit) 0 mg IM STAT PRN; Protocol PRN Reason: Hypoglycemia Protocol Dextrose (Dextrose 5% In Water 1000 Ml) 1,000 mls @ 0 mls/hr IV .Q0M PRN; Protocol; Per Protocol PRN Reason: Hypoglycemia Protocol Insulin Aspart (Novolog) 0 unit SC ACHS [facility] PRN Reason: Protocol Last Admin: 06/22/17 22:02 Dose: Not Given Lisinopril (Zestril) 2.5 mg PO DAILY [facility] Last Admin: 06/22/17 09:14 Dose: 2.5 mg Methylprednisolone (Solu-Medrol) 20 mg IVP Q6 [facility] Last Admin: 06/23/17 05:22 Dose: 20 mg Ritonavir (Norvir) 100 mg PO DAILY [facility] Last Admin: 06/22/17 09:14 Dose: 100 mg - Labs Labs: 06/22/17 11:40 06/22/17 11:40
[2017-06-23 07:41] LABS: BASO % 0.3 % (0.0-2.0); HEMATOCRIT 39.4 % (35.0-51.0); LYMPH # 0.1 K/uL (1.0-4.3); MEAN CELL VOLUME 92.4 fL (80.0-94.0); MEAN CORPUSCULAR HEMOGLOBIN 31.2 pg (27.0-31.0); MEAN CORPUSCULAR HGB CONC 33.7 g/dL (33.0-37.0); MONO # 0.1 K/uL (0.0-0.8); MONO % 2.5 % (0.0-10.0); NRBC % 0.1 % (0.0-2.0); PLATELET COUNT 69 K/uL (130-400); RED CELL DISTRIBUTION WIDTH 15.9 % (11.5-14.5); WHITE BLOOD COUNT 5.4 K/uL (4.8-10.8)
[2017-06-23 08:07] LABS: POTASSIUM 4.2 mmol/L (3.6-5.2)
[2017-06-23 08:09] LABS: ALB/GLOB RATIO 0.8 (1.0-2.1); BILIRUBIN,TOTAL 2.1 mg/dL (0.2-1.3); TOTAL PROTEIN 7.6 g/dL (6.3-8.3)
[2017-06-23 08:10] LABS: CALCIUM 8.5 mg/dl (8.6-10.4); MAGNESIUM 1.8 mg/dL (1.6-2.3)
[2017-06-23] MEDS: (Novolog) Insulin Aspart, Recombinant 100 u/ml 10 ml vial SC SCH ×4 (08:29→21:39)
[2017-06-23] MEDS: Enoxaparin 40 mg Syringe SC SCH (09:24)
[2017-06-23] MEDS: Abacavir/Lamivudine 600 mg-300 mg Tab PO SCH (09:25)
[2017-06-23 09:44] LABS: NEUTROPHIL 98 % (50-75); TOTAL CELLS COUNTED 100
--- NOTE | 2017-06-23 10:52 | RAD ---
PROCEDURE: CHEST RADIOGRAPH, 1 VIEW HISTORY: shortness of breath, pneumonia follow up COMPARISON: 06/18/2017 FINDINGS: LUNGS: Moderate left pleural effusion. Confluent consolidative changes in the left mid to lower lung zone as well as the right infrahilar region. Moderate venous congestion. Biapical pleural thickening with upper lobe granulomatous changes. PLEURA: As above. CARDIOVASCULAR: Cardiomegaly. OSSEOUS STRUCTURES: Degenerative changes in the spine and shoulders. VISUALIZED UPPER ABDOMEN: Normal. OTHER FINDINGS: None. IMPRESSION: Moderate left pleural effusion. Confluent consolidative changes in the left mid to lower lung zone as well as the right infrahilar region. Moderate venous congestion. Biapical pleural thickening with upper lobe granulomatous changes. Cardiomegaly.
[2017-06-23] MEDS: Tiotropium 18 mcg Cap For Inhalation INH SCH (11:00)
--- NOTE | 2017-06-23 12:23 | CP.PCM.PN ---
Subjective - Date & Time of Evaluation Date of Evaluation: 06/23/17 - Subjective Subjective: Cardiology Consult Note- Dr. Ozuna's service Objective - Vital Signs/Intake and Output Vital Signs (last 24 hours): Temp Pulse Resp BP Pulse Ox 97.7 F 68 20 110/80 98 06/23/17 07:30 06/23/17 07:30 06/23/17 07:30 06/23/17 11:16 06/23/17 07:30 Intake and Output: 06/23/17 06/23/17 06:59 18:59 Output Total 350 Balance -350 - Medications Medications: Current Medications Abacavir/Lamivudine (Epzicom) 1 tab PO DAILY [facility] Last Admin: 06/23/17 09:25 Dose: 1 tab Acetaminophen (Tylenol 325mg Tab) 650 mg PO Q6 PRN PRN Reason: Pain, severe (8-10) Darunavir (Prezista) 800 mg PO DAILY [facility] Last Admin: 06/23/17 09:25 Dose: 800 mg Dextrose (Dextrose 50% Inj) 0 ml IV STAT PRN; Protocol PRN Reason: Hyglycemia Protocol Dextrose (Glutose 15) 0 gm PO ONCE PRN; Protocol PRN Reason: Hypoglycemia Protocol Enoxaparin Sodium (Lovenox) 40 mg SC DAILY [facility] Last Admin: 06/23/17 09:24 Dose: 40 mg Escitalopram Oxalate (Lexapro) 10 mg PO HS [facility] Last Admin: 06/22/17 22:02 Dose: Not Given Famotidine (Pepcid) 40 mg PO DAILY [facility] Last Admin: 06/23/17 09:23 Dose: 40 mg Furosemide (Lasix) 20 mg IVP Q12 [facility] Last Admin: 06/23/17 10:59 Dose: Not Given Glucagon (Glucagen Diagnostic Kit) 0 mg IM STAT PRN; Protocol PRN Reason: Hypoglycemia Protocol Dextrose (Dextrose 5% In Water 1000 Ml) 1,000 mls @ 0 mls/hr IV .Q0M PRN; Protocol; Per Protocol PRN Reason: Hypoglycemia Protocol Insulin Aspart (Novolog) 0 unit SC ACHS [facility] PRN Reason: Protocol Last Admin: 06/23/17 08:29 Dose: 1 unit Lisinopril (Zestril) 2.5 mg PO DAILY [facility] Last Admin: 06/22/17 09:14 Dose: 2.5 mg Methylprednisolone (Solu-Medrol) 20 mg IVP Q6 [facility] Last Admin: 06/23/17 12:17 Dose: 20 mg Metoprolol Tartrate (Lopressor) 12.5 mg PO BID [facility] Last Admin: 06/23/17 11:00 Dose: 12.5 mg Ritonavir (Norvir) 100 mg PO DAILY [facility] Last Admin: 06/23/17 09:25 Dose: 100 mg Tiotropium [place] (Spiriva) 18 mcg INH RQ24 [facility] Last Admin: 06/23/17 11:00 Dose: 18 mcg - Labs Labs: 06/23/17 07:30 06/23/17 07:30
--- NOTE | 2017-06-23 12:39 | PCM.PSYCH ---
Initial Psychiatric Evaluation - Initial Psychiatric Evaluation Type of Admission: Voluntary Legal Status: Capacity Chief Complaint (in patient's own words): "I am fine" History of Present Illness and Precipitating Events: Pt is seen, chart reviewed and case discussed Consult was requested for his depression This is a 52 yo LM with HIV. He reports mostly irritability, some anxiety and some depressive sxs. He claims the staff don't let him use the bathroom (staff denied that and also claimed that he wants to use it every minute) Not suicidal or homicidal Not manic or psychotic Orientation is slow but correct, memory is poor and attention is low No post psych hx but he was evasive, same with drug/alcohol use, he was guarded. No family psych hx Medical: Asthma, Back Problems, CHF, COPD, Emphysema, HIV Current Medications: Active Medications Generic Name Dose Route Start Last Admin Trade Name Freq PRN Reason Stop Dose Admin Abacavir/Lamivudine 1 tab 06/19/17 10:00 06/23/17 09:25 Epzicom PO 1 tab DAILY [facility] Administration Acetaminophen 650 mg 06/22/17 15:00 Tylenol 325mg Tab PO Q6 PRN Pain, severe (8-10) Darunavir 800 mg 06/19/17 10:00 06/23/17 09:25 Prezista PO 800 mg DAILY [facility] Administration Dextrose 0 ml 06/21/17 13:28 Dextrose 50% Inj IV STAT PRN Hyglycemia Protocol Protocol Dextrose 0 gm 06/21/17 13:28 Glutose 15 PO ONCE PRN Hypoglycemia Protocol Protocol Enoxaparin Sodium 40 mg 06/21/17 13:45 06/23/17 09:24 Lovenox SC 40 mg DAILY [facility] Administration Escitalopram Oxalate 10 mg 06/21/17 22:00 06/22/17 22:02 Lexapro PO Not Given HS [facility] Famotidine 40 mg 06/21/17 13:45 06/23/17 09:23 Pepcid PO 40 mg DAILY [facility] Administration Furosemide 20 mg 06/23/17 10:00 06/23/17 10:59 Lasix IVP Not Given Q12 [facility] Glucagon 0 mg 06/21/17 13:28 Glucagen Diagnostic Kit IM STAT PRN Hypoglycemia Protocol Protocol Dextrose 1,000 mls @ 0 mls/hr 06/21/17 13:28 Dextrose 5% In Water 1000 Ml IV .Q0M PRN Hypoglycemia Protocol Protocol Per Protocol Insulin Aspart 0 unit 06/21/17 16:30 06/23/17 08:29 Novolog SC 1 unit ACHS [facility] Administration Protocol Lisinopril 2.5 mg 06/21/17 10:00 06/23/17 11:00 Zestril PO 2.5 mg DAILY [facility] Administration Methylprednisolone 20 mg 06/21/17 09:11 06/23/17 12:17 Solu-Medrol IVP 20 mg Q6 [facility] Administration Metoprolol Tartrate 12.5 mg 06/23/17 10:00 06/23/17 11:00 Lopressor PO 12.5 mg BID [facility] Administration Ritonavir 100 mg 06/19/17 10:00 06/23/17 09:25 Norvir PO 100 mg DAILY [facility] Administration Tiotropium [place] 18 mcg 06/23/17 10:00 06/23/17 11:00 Spiriva INH 18 mcg RQ24 [facility] Administration Past Psychiatric History - Past Psychiatric History Previous Treatment History: None Pertinent Medical Hx (Current Medical&Sleep Prob, Allergies): Allergies Allergy/AdvReac Type Severity Reaction Status Date / Time shellfish derived Allergy Severe ANAPHYLAXIS Verified 06/18/17 15:33 aspirin Allergy ANAPHYLAXIS Verified 06/18/17 15:33 EGG Allergy ITCHING Verified 06/18/17 15:33 Penicillins Allergy RASH Verified 06/18/17 15:33 shrimp Allergy ANAPHYLAXIS Verified 06/18/17 15:33 Furosemide [Lasix] 40 mg PO DAILY 06/02/17 Methylprednisolone [Medrol Dose Pack (21 tabs)] 4 mg PO DAILY #21 mg 06/05/17 Abacavir Sulfate/Lamivudine [Abacavir-Lamivudine 600-300 mg] 1 each PO DAILY # 30 tablet 06/21/17 Bosentan [Tracleer] 62.5 mg PO BID #180 tablet 06/21/17 Carvedilol [Coreg] 6.25 mg PO BID #180 tablet 06/21/17 Darunavir [Prezista] 800 mg PO DAILY #30 tab 06/21/17 Ergocalciferol (Vitamin D2) [Vitamin D2] 2,000 iu PO DAILY #30 tab 06/21/17 Escitalopram [Lexapro] 10 mg PO HS #30 tab 06/21/17 Lisinopril 2.5 mg PO DAILY #90 tablet 06/21/17 MetFORMIN [glucOPHAGE] 1,000 mg PO BID #180 tab 06/21/17 Ritonavir [Norvir] 100 mg PO DAILY #30 cap 06/21/17 Sildenafil Citrate [Viagra] 25 mg PO TID 30 Days #90 tablet 06/21/17 Mental Status Examination - Personal Presentation Personal Presentation: Looks older than stated age - Affect Affect: Constricted - Motor Activity Motor Activity: Psychomotor Agitation (mild) - Reliability in Providing Information Reliability in Providing Information: Fair - Speech Speech: Organized - Formal Thought Process Formal Thought Process: Circumstantial - Cognitive Functions Orientation: Person, Place, Time Sensorium: Drowsy Attention/Concentration: Easily distracted Abstract Thinking: [place] Estimate of Intelligence: Below average Judgement: Imparied, as evidence by: Poor judgement Memory: Recent impaired, as evidence by: Inability to recall events of the day, Remote impaired as evidenced by: Inability to recall sig life events - Risk Risk: Diminished functioning - Strength & Assets Inventory Strength & Assets Inventory: Life experience - Limitations Limitations: Living alone DSM 5 DX - DSM 5 DSM 5 Diagnosis: Major depression, moderate, single - Recommended/Plan of Treatment Treatment Recommendations and Plan of Treatment: Lexapro is already started by the medical team, no change needed prn meds Support and psychoeducation Frequent orientation 31 min
--- NOTE | 2017-06-23 15:09 | CP.PCM.PN ---
Subjective - Date & Time of Evaluation Date of Evaluation: 06/23/17 Time of Evaluation: 09:00 - Subjective Subjective: Dr. Anderson note: Patient seen and examined in room. He is very lethargic however is still answering some yes or no questions. He denies any pain and says his breathing is easier. Patient appears to be obtunded at times yesterday and last night per nursing staff. Patient was in BIPAP last night. Objective - Vital Signs/Intake and Output Vital Signs (last 24 hours): Temp Pulse Resp BP Pulse Ox 97.7 F 68 20 110/80 98 06/23/17 07:30 06/23/17 07:30 06/23/17 07:30 06/23/17 11:16 06/23/17 07:30 Intake and Output: 06/23/17 06/23/17 06:59 18:59 Output Total 350 Balance -350 - Medications Medications: Current Medications Abacavir/Lamivudine (Epzicom) 1 tab PO DAILY [facility] Last Admin: 06/23/17 09:25 Dose: 1 tab Acetaminophen (Tylenol 325mg Tab) 650 mg PO Q6 PRN PRN Reason: Pain, severe (8-10) Darunavir (Prezista) 800 mg PO DAILY [facility] Last Admin: 06/23/17 09:25 Dose: 800 mg Dextrose (Dextrose 50% Inj) 0 ml IV STAT PRN; Protocol PRN Reason: Hyglycemia Protocol Dextrose (Glutose 15) 0 gm PO ONCE PRN; Protocol PRN Reason: Hypoglycemia Protocol Enoxaparin Sodium (Lovenox) 40 mg SC DAILY [facility] Last Admin: 06/23/17 09:24 Dose: 40 mg Escitalopram Oxalate (Lexapro) 10 mg PO HS [facility] Last Admin: 06/22/17 22:02 Dose: Not Given Famotidine (Pepcid) 40 mg PO DAILY [facility] Last Admin: 06/23/17 09:23 Dose: 40 mg Furosemide (Lasix) 20 mg IVP Q12 [facility] Last Admin: 06/23/17 10:59 Dose: Not Given Glucagon (Glucagen Diagnostic Kit) 0 mg IM STAT PRN; Protocol PRN Reason: Hypoglycemia Protocol Dextrose (Dextrose 5% In Water 1000 Ml) 1,000 mls @ 0 mls/hr IV .Q0M PRN; Protocol; Per Protocol PRN Reason: Hypoglycemia Protocol Insulin Aspart (Novolog) 0 unit SC ACHS [facility] PRN Reason: Protocol Last Admin: 06/23/17 12:30 Dose: 2 unit Lisinopril (Zestril) 2.5 mg PO DAILY [facility] Last Admin: 06/23/17 11:00 Dose: 2.5 mg Methylprednisolone (Solu-Medrol) 20 mg IVP Q6 [facility] Last Admin: 06/23/17 12:17 Dose: 20 mg Metoprolol Tartrate (Lopressor) 12.5 mg PO BID [facility] Last Admin: 06/23/17 11:00 Dose: 12.5 mg Ritonavir (Norvir) 100 mg PO DAILY [facility] Last Admin: 06/23/17 09:25 Dose: 100 mg Tiotropium [place] (Spiriva) 18 mcg INH RQ24 [facility] Last Admin: 06/23/17 11:00 Dose: 18 mcg - Labs Labs: 06/23/17 07:30 06/23/17 07:30 - Constitutional Appears: Unkempt, Confused - Eye Exam Eye Exam: Normal appearance. absent: Scleral icterus - Respiratory Exam Respiratory Exam: Decreased Breath Sounds, Rales. absent: Clear to Ausculation Bilateral, Rhonchi, Wheezes, NORMAL BREATHING PATTERN - Cardiovascular Exam Cardiovascular Exam: Tachycardia, REGULAR RHYTHM, +S1, +S2. absent: Gallop, Rubs - GI/Abdominal Exam GI & Abdominal Exam: Firm, Normal Bowel Sounds. absent: Distended, Soft, Tenderness - Extremities Exam Extremities Exam: Pedal Edema. absent: Normal Inspection - Neurological Exam Neurological Exam: absent: Alert - Psychiatric Exam Psychiatric exam: Normal Affect, Normal Mood - Skin Skin Exam: Dry, Normal Color. absent: Pallor Assessment and Plan - Assessment and Plan (Free Text) Assessment: Obtunded: 06/23: This could be from an encephalopathy, dc Xanax, Fall precations, he will be 1:1 because he needs close monitoring and also redirection. CT scan without contrast due to renal function issues, consider MRI and neurology consult. CHF Exacerbation; diastolic dysfunction preserved EF 06/23lasix 20mg IVP Q12H, daily weight changes, I&O, started metropolol 12.5mg bid, dc Coreg. 06/22: continue with Lasix 40mg IVP, coreg 6.25mg bid, I&Os, nasal canula Last echo in 05/30; diastolic dysfunction with preserved EF w/ severe pulm HTN -patient has CAD -c/w Coreg, Lasix -allergies to Aspirin -Lisinopril low dose COPD: 06/23: stoped Duoneb and put him on Solumedrol, he does qualify for home O2 with room air abg, continue giv BIPAP 06/22: Continue with duoneb q6h and Solumedrol 20mg Q6, Room air abg today, patient will need home oxygen set up. Pulm HTN 06/23: Dr. Ozuna consulted, this could be secondary to HIV. 06/23: Room air ABG is preformed which showed very low oxygen saturation and CO2 , nasal canula patient was previously on Bosentan; has not been taking -patient given Viagra until he can get Bosentan sent to home -Neither are on formulary, however will be doing meds to beds and should have viagra and patient can take this med as his own TID 20mg Diabetes Type 2 -RISS -hypoglycemia protocol -Lisinopril 2.5mg low dose HIV Infection; Chronic 06/23: pre chart review his last CD4 count here was round 27, will repeat this plus viral load, Dr. Barrios consulted. Follow up labs for RPR, Toxo, Cryptococcus, and CMV c/w ART Depression 06/23: Dr. Dotson consulted for depression which according the patient's family has worsened since admission started lexapro HS -denies SI/HI; no plan to hurt self Proph -Heart Healthy Diet -Meds to bed being used so patient can have access to his medications -Pepcid/Lovenox
--- NOTE | 2017-06-23 18:21 | CP.PCM.CON ---
<Connor Pettit - Last Filed: 06/23/17 18:21> History of Present Illness - History of Present Illness History of Present Illness: Cardiology Consult Note- Dr. Ozuna's service CC: shortness of breath HPI: 52 year old male with past medical history significant for CHF, COPD, HIV, and HTN presented to the ED on June 18, with complaints of shortness of breath and leg pain. At the time of evaluation, patient was very somnolent and unwilling to respond to further questioning. An ROS was unable to be obtained at this time due to patient's status. In the ED, an EKG, CXR and bloodwork were obtained. Patient was given Lasix for fluid overload. PMHx- as stated above PSHx- Not able to obtain due to patient status. Fam Hx- Not able to obtain due to patient status. Social- Not able to obtain due to patient status. Meds- Not able to obtain due to patient status. Allergies- as stated in medical record: shellfish, ASA, egg, penicillin and shrimp (It is unclear of the reaction as patient is unable to respond at this time) Review of Systems - Review of Systems Systems not reviewed;Unavailable: Other (Could not obtain due to patient's clinical status) - Neurological Neurological: Confusion Past Patient History - Infectious Disease Hx of Infectious Diseases: None - Past Medical History & Family History Past Medical History?: Yes - Past Social History Smoking Status: Former Smoker - CARDIAC Hx Congestive Heart Failure: Yes Hx Hypertension: Yes Hx Peripheral Edema: Yes - PULMONARY Hx Asthma: Yes Hx Chronic Obstructive Pulmonary Disease (COPD): Yes Hx Emphysema: Yes Hx Pneumonia: Yes - NEUROLOGICAL Hx Neurological Disorder: No - HEENT Hx HEENT Problems: No - RENAL Hx Chronic Kidney Disease: No - ENDOCRINE/METABOLIC Hx Diabetes Mellitus Type 2: No - HEMATOLOGICAL/ONCOLOGICAL Hx Human Immunodeficiency Virus (HIV): Yes (Compliant with medications; Unknown CD4 count) - INTEGUMENTARY Hx Dermatological Problems: No - MUSCULOSKELETAL/RHEUMATOLOGICAL Hx Falls: Yes - GASTROINTESTINAL Hx Gastrointestinal Disorders: No - GENITOURINARY/GYNECOLOGICAL Hx Genitourinary Disorders: No - PSYCHIATRIC Hx Substance Use: No - SURGICAL HISTORY Hx Coronary Stent: Yes (x2) - ANESTHESIA Hx Anesthesia: Yes Hx Anesthesia Reactions: No Hx Malignant Hyperthermia: No Has any member of the family had a problem w/ anesthesia?: No Meds Home Medications: Home Medication List Medication Instructions Recorded Confirmed Type Abacavir Sulfate/Lamivudine 1 each PO DAILY #30 tablet 06/21/17 Rx [Abacavir-Lamivudine 600-300 mg] Bosentan [Tracleer] 62.5 mg PO BID #180 tablet 06/21/17 Rx Carvedilol [Coreg] 6.25 mg PO BID #180 tablet 06/21/17 Rx Darunavir [Prezista] 800 mg PO DAILY #30 tab 06/21/17 Rx Ergocalciferol (Vitamin D2) 2,000 iu PO DAILY #30 tab 06/21/17 Rx [Vitamin D2] Escitalopram [Lexapro] 10 mg PO HS #30 tab 06/21/17 Rx Lisinopril 2.5 mg PO DAILY #90 tablet 06/21/17 Rx MetFORMIN [glucOPHAGE] 1,000 mg PO BID #180 tab 06/21/17 Rx Ritonavir [Norvir] 100 mg PO DAILY #30 cap 06/21/17 Rx Sildenafil Citrate [Viagra] 25 mg PO TID 30 Days #90 tablet 06/21/17 Rx Allergies/Adverse Reactions: Allergies Allergy/AdvReac Type Severity Reaction Status Date / Time shellfish derived Allergy Severe ANAPHYLAXIS Verified 06/18/17 15:33 aspirin Allergy ANAPHYLAXIS Verified 06/18/17 15:33 EGG Allergy ITCHING Verified 06/18/17 15:33 Penicillins Allergy RASH Verified 06/18/17 15:33 shrimp Allergy ANAPHYLAXIS Verified 06/18/17 15:33 - Medications Medications: Current Medications Abacavir/Lamivudine (Epzicom) 1 tab PO DAILY [facility] Last Admin: 06/23/17 09:25 Dose: 1 tab Acetaminophen (Tylenol 325mg Tab) 650 mg PO Q6 PRN PRN Reason: Pain, severe (8-10) Darunavir (Prezista) 800 mg PO DAILY [facility] Last Admin: 06/23/17 09:25 Dose: 800 mg Dextrose (Dextrose 50% Inj) 0 ml IV STAT PRN; Protocol PRN Reason: Hyglycemia Protocol Dextrose (Glutose 15) 0 gm PO ONCE PRN; Protocol PRN Reason: Hypoglycemia Protocol Enoxaparin Sodium (Lovenox) 40 mg SC DAILY [facility] Last Admin: 06/23/17 09:24 Dose: 40 mg Escitalopram Oxalate (Lexapro) 10 mg PO HS [facility] Last Admin: 06/22/17 22:02 Dose: Not Given Famotidine (Pepcid) 40 mg PO DAILY [facility] Last Admin: 06/23/17 09:23 Dose: 40 mg Furosemide (Lasix) 20 mg IVP Q12 [facility] Last Admin: 06/23/17 10:59 Dose: Not Given Glucagon (Glucagen Diagnostic Kit) 0 mg IM STAT PRN; Protocol PRN Reason: Hypoglycemia Protocol Dextrose (Dextrose 5% In Water 1000 Ml) 1,000 mls @ 0 mls/hr IV .Q0M PRN; Protocol; Per Protocol PRN Reason: Hypoglycemia Protocol Insulin Aspart (Novolog) 0 unit SC ACHS [facility] PRN Reason: Protocol Last Admin: 06/23/17 17:09 Dose: Not Given Lisinopril (Zestril) 2.5 mg PO DAILY [facility] Last Admin: 06/23/17 11:00 Dose: 2.5 mg Methylprednisolone (Solu-Medrol) 20 mg IVP Q6 [facility] Last Admin: 06/23/17 12:17 Dose: 20 mg Metoprolol Tartrate (Lopressor) 12.5 mg PO BID [facility] Last Admin: 06/23/17 11:00 Dose: 12.5 mg Ritonavir (Norvir) 100 mg PO DAILY [facility] Last Admin: 06/23/17 09:25 Dose: 100 mg Tiotropium [place] (Spiriva) 18 mcg INH RQ24 [facility] Last Admin: 06/23/17 11:00 Dose: 18 mcg Physical Exam - Constitutional Appears: Non-toxic, No Acute Distress - Head Exam Head Exam: ATRAUMATIC, NORMAL INSPECTION, NORMOCEPHALIC - Eye Exam Additional comments: Could not perform eye exam at this time. Patient did not cooperate with evaluation. - ENT Exam ENT Exam: Mucous Membranes Moist - Neck Exam Neck exam: Positive for: Full Rom - Respiratory Exam Respiratory Exam: NORMAL BREATHING PATTERN - Cardiovascular Exam Cardiovascular Exam: +S1, +S2 - GI/Abdominal Exam GI & Abdominal Exam: Soft - Extremities Exam Extremities exam: Positive for: pedal edema - Neurological Exam Neurological exam: Alert - Psychiatric Exam Psychiatric exam: Flat Affect - Skin Skin Exam: Dry, Intact, Warm - Additional Findings Additional findings: Limited evaluation due to patient unwilling to cooperate with exam. Results - Vital Signs Recent Vital Signs: Last Vital Signs Temp 98.1 F 06/23/17 15:00 Pulse 126 H 06/23/17 15:00 Resp 18 06/23/17 15:00 BP 93/63 L 06/23/17 15:00 Pulse Ox 94 L 06/23/17 15:00 - Labs Result Diagrams: 06/23/17 07:30 06/23/17 07:30 Labs: Laboratory Results - last 24 hr 06/22/17 06/22/17 06/23/17 20:15 21:26 06:17 WBC RBC Hgb Hct MCV MCH MCHC RDW Plt Count MPV Neut % (Auto) Lymph % (Auto) [place] % (Auto) Eos % (Auto) Baso % (Auto) Neut # Lymph # [place] # Eos # Baso # Neutrophils % (Manual) Lymphocytes % (Manual) Monocytes % (Manual) Platelet Estimate Anisocytosis (manual) Puncture Site Rra pCO2 40 pO2 129 H HCO3 31.4 H ABG pH 7.51 H ABG Total CO2 33.1 H ABG O2 Saturation 99.4 H ABG Base Excess 8.2 H Rajeev Test Na ABG Potassium 3.7 A-a O2 Difference 249.0 Respiratory Index 1.9 Sodium 136.0 Chloride 103.0 Glucose 149 H Lactate 1.4 Vent Mode Bipap FiO2 60.0 Inspiratory BiPAP 16 Expiratory BiPAP 5 Potassium Carbon Dioxide Anion Gap BUN Creatinine Est GFR ( Amer) Est GFR (Non-Af Amer) POC Glucose (mg/dL) 144 H 164 H Random Glucose Calcium Phosphorus Magnesium Total Bilirubin AST ALT Alkaline Phosphatase Total Protein Albumin Globulin Albumin/Globulin Ratio Arterial Blood Potassium 3.7 06/23/17 06/23/17 06/23/17 07:30 07:30 13:20 WBC 5.4 RBC 4.27 L Hgb 13.3 Hct 39.4 MCV 92.4 MCH 31.2 H MCHC 33.7 RDW 15.9 H Plt Count 69 L MPV 10.0 Neut % (Auto) 95.2 H Lymph % (Auto) 2.0 L [place] % (Auto) 2.5 Eos % (Auto) 0.0 Baso % (Auto) 0.3 Neut # 5.2 Lymph # 0.1 L [place] # 0.1 Eos # 0.0 Baso # 0.0 Neutrophils % (Manual) 98 H Lymphocytes % (Manual) 1 L Monocytes % (Manual) 1 Platelet Estimate Decreased L Anisocytosis (manual) Slight Puncture Site pCO2 pO2 HCO3 ABG pH ABG Total CO2 ABG O2 Saturation ABG Base Excess Rajeev Test ABG Potassium A-a O2 Difference Respiratory Index Sodium 133 Chloride 94 L Glucose Lactate Vent Mode FiO2 Inspiratory BiPAP Expiratory BiPAP Potassium 4.2 Carbon Dioxide 28 Anion Gap 15 BUN 58 H Creatinine 1.6 H Est GFR ( Amer) 55 Est GFR (Non-Af Amer) 46 POC Glucose (mg/dL) 203 H Random Glucose 149 H Calcium 8.5 L Phosphorus 5.0 H Magnesium 1.8 Total Bilirubin 2.1 H AST 44 ALT 44 Alkaline Phosphatase 66 Total Protein 7.6 Albumin 3.3 L Globulin 4.2 H Albumin/Globulin Ratio 0.8 L Arterial Blood Potassium 06/23/17 16:06 WBC RBC Hgb Hct MCV MCH MCHC RDW Plt Count MPV Neut % (Auto) Lymph % (Auto) [place] % (Auto) Eos % (Auto) Baso % (Auto) Neut # Lymph # [place] # Eos # Baso # Neutrophils % (Manual) Lymphocytes % (Manual) Monocytes % (Manual) Platelet Estimate Anisocytosis (manual) Puncture Site pCO2 pO2 HCO3 ABG pH ABG Total CO2 ABG O2 Saturation ABG Base Excess Rajeev Test ABG Potassium A-a O2 Difference Respiratory Index Sodium Chloride Glucose Lactate Vent Mode FiO2 Inspiratory BiPAP Expiratory BiPAP Potassium Carbon Dioxide Anion Gap BUN Creatinine Est GFR ( Amer) Est GFR (Non-Af Amer) POC Glucose (mg/dL) 142 H Random Glucose Calcium Phosphorus Magnesium Total Bilirubin AST ALT Alkaline Phosphatase Total Protein Albumin Globulin Albumin/Globulin Ratio Arterial Blood Potassium Assessment & Plan (1) CHF exacerbation Status: Acute (2) Pulmonary hypertension Status: Chronic (3) Diabetes mellitus Status: Chronic (4) COPD (chronic obstructive pulmonary disease) Status: Chronic Onset Date: 01/13/14 (5) HIV (human immunodeficiency virus infection) Status: Chronic Onset Date: 01/13/14 (6) Prophylactic measure Status: Acute - Assessment and Plan (Free Text) Assessment: CHF Exacerbation; diastolic dysfunction preserved EF Lasix 20mg IVP Q12H with parameters due to hypotension, Daily weight changes, I& O, Started metropolol 12.5mg bid, Last echo in 05/30; LV systolic function is moderately to severely imparted ; diastolic dysfunction with preserved EF w/ severe pulm HTN; moderate tricuspid regurgitation CXR 06/23: Moderate pleural effusions; confluent consolidative changes in the left mid to lower lung zone as well as right infrahilar region. Moderate venous congestion; biapical pleural thickening w/ upper lobe granulomatous changes; cardiomegaly BNP 3140 CAD Allergic to Aspirin- need to confirm reaction Lisinopril, Metoprolol Oxygen therapy PRN Hypotension Monitor fluid balance Parameters on Lasix as stated above COPD Solumedrol, Spiriva scheduled BiPAP and Oxygen PRN Pulm HTN Noted on echo Per primary note: Patient was previously on Bosentan; has not been taking. Patient to take Viagra low dose at this time. Diabetes Mellitus ISS Hypoglycemia protocol Accuchecks Lisinopril 2.5mg low dose Diabetic counseling HIV Last CD4 count inn 2014 was 27, Will need to be rechecked On anti-retrovirals ID on the case Altered Mentation Unclear of patient's baseline status Psych currently on the case for hx of depression Will need to confirm more of the history with primary team Prophylactic Measure Pepcid 40 mg PO daily Lovenox 40 mg SC daily SCDs contraindicated for LE swelling Discusses with attending. Management and planning per Dr. Ozuna <Chris Ozuna - Last Filed: 06/23/17 22:43> Meds - Medications Medications: Current Medications Abacavir/Lamivudine (Epzicom) 1 tab PO DAILY [facility] Last Admin: 06/23/17 09:25 Dose: 1 tab Acetaminophen (Tylenol 325mg Tab) 650 mg PO Q6 PRN PRN Reason: Pain, severe (8-10) Atovaquone (Mepron) 750 mg PO BID [facility] Darunavir (Prezista) 800 mg PO DAILY [facility] Last Admin: 06/23/17 09:25 Dose: 800 mg Dextrose (Dextrose 50% Inj) 0 ml IV STAT PRN; Protocol PRN Reason: Hyglycemia Protocol Dextrose (Glutose 15) 0 gm PO ONCE PRN; Protocol PRN Reason: Hypoglycemia Protocol Enoxaparin Sodium (Lovenox) 40 mg SC DAILY [facility] Last Admin: 06/23/17 09:24 Dose: 40 mg Escitalopram Oxalate (Lexapro) 10 mg PO HS [facility] Last Admin: 06/23/17 21:39 Dose: 10 mg Famotidine (Pepcid) 40 mg PO DAILY [facility] Last Admin: 06/23/17 09:23 Dose: 40 mg Furosemide (Lasix) 20 mg IVP Q12 [facility] Last Admin: 10/11/17 21:39 Dose: 20 mg Glucagon (Glucagen Diagnostic Kit) 0 mg IM STAT PRN; Protocol PRN Reason: Hypoglycemia Protocol Dextrose (Dextrose 5% In Water 1000 Ml) 1,000 mls @ 0 mls/hr IV .Q0M PRN; Protocol; Per Protocol PRN Reason: Hypoglycemia Protocol Insulin Aspart (Novolog) 0 unit SC ACHS [facility] PRN Reason: Protocol Last Admin: 06/23/17 21:39 Dose: Not Given Lactulose (Enulose) 20 gm PO TID [facility] Lisinopril (Zestril) 2.5 mg PO DAILY [facility] Last Admin: 06/23/17 11:00 Dose: 2.5 mg Methylprednisolone (Solu-Medrol) 20 mg IVP Q6 [facility] Last Admin: 06/23/17 18:46 Dose: 20 mg Metoprolol Tartrate (Lopressor) 12.5 mg PO BID [facility] Last Admin: 06/23/17 18:46 Dose: 12.5 mg Moxifloxacin HCl (Avelox) 400 mg PO Q24H [facility] Ritonavir (Norvir) 100 mg PO DAILY [facility] Last Admin: 06/23/17 09:25 Dose: 100 mg Tiotropium [place] (Spiriva) 18 mcg INH RQ24 [facility] Last Admin: 06/23/17 11:00 Dose: 18 mcg Results - Vital Signs Recent Vital Signs: Last Vital Signs Temp 98.1 F 06/23/17 15:00 Pulse 123 H 06/23/17 18:37 Resp 20 06/23/17 18:37 BP 116/85 06/23/17 21:39 Pulse Ox 94 L 06/23/17 15:00 - Labs Result Diagrams: 06/23/17 07:30 06/23/17 07:30 Labs: Laboratory Results - last 24 hr 06/23/17 06/23/17 06/23/17 06:17 07:30 07:30 WBC 5.4 RBC 4.27 L Hgb 13.3 Hct 39.4 MCV 92.4 MCH 31.2 H MCHC 33.7 RDW 15.9 H Plt Count 69 L MPV 10.0 Neut % (Auto) 95.2 H Lymph % (Auto) 2.0 L [place] % (Auto) 2.5 Eos % (Auto) 0.0 Baso % (Auto) 0.3 Neut # 5.2 Lymph # 0.1 L [place] # 0.1 Eos # 0.0 Baso # 0.0 Neutrophils % (Manual) 98 H Lymphocytes % (Manual) 1 L Monocytes % (Manual) 1 Platelet Estimate Decreased L Anisocytosis (manual) Slight Sodium 133 Potassium 4.2 Chloride 94 L Carbon Dioxide 28 Anion Gap 15 BUN 58 H Creatinine 1.6 H Est GFR ( Amer) 55 Est GFR (Non-Af Amer) 46 POC Glucose (mg/dL) 164 H Random Glucose 149 H Calcium 8.5 L Phosphorus 5.0 H Magnesium 1.8 Total Bilirubin 2.1 H AST 44 ALT 44 Alkaline Phosphatase 66 Ammonia Total Protein 7.6 Albumin 3.3 L Globulin 4.2 H Albumin/Globulin Ratio 0.8 L RPR Cryptococcus Ag Toxoplasma Antibody 06/23/17 06/23/17 06/23/17 13:20 13:53 13:53 WBC RBC Hgb Hct MCV MCH MCHC RDW Plt Count MPV Neut % (Auto) Lymph % (Auto) [place] % (Auto) Eos % (Auto) Baso % (Auto) Neut # Lymph # [place] # Eos # Baso # Neutrophils % (Manual) Lymphocytes % (Manual) Monocytes % (Manual) Platelet Estimate Anisocytosis (manual) Sodium Potassium Chloride Carbon Dioxide Anion Gap BUN Creatinine Est GFR ( Amer) Est GFR (Non-Af Amer) POC Glucose (mg/dL) 203 H Random Glucose Calcium Phosphorus Magnesium Total Bilirubin AST ALT Alkaline Phosphatase Ammonia Total Protein Albumin Globulin Albumin/Globulin Ratio RPR Nonreactive Cryptococcus Ag Negative Toxoplasma Antibody Negative 06/23/17 06/23/17 06/23/17 16:06 18:49 21:03 WBC RBC Hgb Hct MCV MCH MCHC RDW Plt Count MPV Neut % (Auto) Lymph % (Auto) [place] % (Auto) Eos % (Auto) Baso % (Auto) Neut # Lymph # [place] # Eos # Baso # Neutrophils % (Manual) Lymphocytes % (Manual) Monocytes % (Manual) Platelet Estimate Anisocytosis (manual) Sodium Potassium Chloride Carbon Dioxide Anion Gap BUN Creatinine Est GFR ( Amer) Est GFR (Non-Af Amer) POC Glucose (mg/dL) 142 H 190 H Random Glucose Calcium Phosphorus Magnesium Total Bilirubin AST ALT Alkaline Phosphatase Ammonia 120 H Total Protein Albumin Globulin Albumin/Globulin Ratio RPR Cryptococcus Ag Toxoplasma Antibody Assessment & Plan - Assessment and Plan (Free Text) Assessment: Patient seen and evaluated with the senior medical writer Plan of care as documented
--- NOTE | 2017-06-23 18:32 | CP.PCM.CON ---
History of Present Illness - History of Present Illness History of Present Illness: 52 yo male with hx HIV /dCHF /COPD /DM/ Pulm HTN/ HTN/Anxiety /Depression. Pt was noted to be lethargic and was switched from NC O2 to BIPAP ID consulted for antiiviral and antibiotic management All- PCN /Shellfish /asa /shrimp /egg Social- ex-tob/ no etoh or drugs Meds- reviewed FH- Unknown CHF COPD HIV HTN DM Pulm HTN WAQAR Anxiety /Depression Review of Systems - Review of Systems Systems not reviewed;Unavailable: Altered Mental Status - Constitutional Constitutional: As Per HPI - EENT Eyes: absent: As Per HPI, Blind Spots, Blurred Vision, Change in Vision, Decreased Night Vision, Diplopia, Discharge, Dry Eye, Exophthalmos, Floaters, Irritation, Itchy Eyes, Loss of Peripheral Vision, Pain, Photophobia, Requires Corrective Lenses, Sees Flashes, Spots in Vision, Tunnel Vision, Other Visual Disturbances, Loss of Vision, Other Ears: absent: As Per HPI, Decreased Hearing, Ear Discharge, Ear Pain, Tinnitus, Abnormal Hearing, Disequilibrium, Dizziness, Other Nose/Mouth/Throat: absent: As Per HPI, Epistaxis, Nasal Congestion, Nasal Discharge, Nasal Obstruction, Nasal Trauma, Nose Pain, Post Nasal Drip, Sinus Pain, Sinus Pressure, Bleeding Gums, Change in Voice, Dental Pain, Dry Mouth, Dysphagia, Halitosis, Hoarsness, Lip Swelling, Mouth Lesions, Mouth Pain, Odynophagia, Sore Throat, Throat Swelling, Tongue Swelling, Facial Pain, Neck Pain, Neck Mass, Other - Cardiovascular Cardiovascular: As Per HPI - Respiratory Respiratory: As Per HPI, Cough, Dyspnea. absent: Hemoptysis - Gastrointestinal Gastrointestinal: absent: As Per HPI, Abdominal Pain, Belching, Bloating, Change in Bowel Habits, Change in Stool Character, Coffee Ground Emesis, Constipation, Cramping, Diarrhea, Dyspepsia, Dysphagia, Early Satiety, Excessive Flatus, Fecal Incontinence, Heartburn, Hematemesis, Hematochezia, Loose Stools, Melena, Nausea, Odynophagia, Temesmus, Vomiting, Other - Genitourinary Genitourinary: absent: As Per HPI, Change in Urinary Stream, Difficulty Urinating, Dysuria, Flank Pain, Hematuria, Pyuria, Nocturia, Urinary Incontinence, Urinary Frequency, Urinary Hesitance, Urinary Urgency, Voiding Freq/Small Amts, Freq UTI, Hx Renal/Bladder Calculi, Hx /Renal Surgery, Bladder Distension, Other - Musculoskeletal Musculoskeletal: absent: As Per HPI, Abnormal Gait, Arthralgias, Atrophy, Back Pain, Deformity, Joint Swelling, Limited Range of Motion, Loss of Height, Muscle Cramps, Muscle Weakness, Myalgias, Neck Pain, Numbness, Radiating Pain into Limb, Stiffness, Tingling, Other - Integumentary Integumentary: absent: As Per HPI, Acne, Alopecia, Bleeding Lesions, Change in Hair, Change in Nails, Change in Pigmentation, Changing Lesions, Dry Skin, Erythema, Furuncle, Hirsutism, Lesions, New Lesions, Non-Healing Lesions, Photosensitivity, Pruritus, Rash, Skin Pain, Skin Ulcer, Sores, Striae, Swelling , Unusual Bruising, Wounds, Jaundice, Other - Neurological Neurological: As Per HPI - Psychiatric Psychiatric: As Per HPI - Endocrine Endocrine: absent: As Per HPI, Change in Body Appearance, Change in Libido, Cold Intolorance, Deepening of Voice, Excessive Sweating, Fatigue, Flushing, Heat Intolorance, Increase in Ring/Shoe/Hat Size, Palpitations, Polydipsia, Polyphagia, Polyuria, Other - Hematologic/Lymphatic Hematologic: absent: As Per HPI, Easy Bleeding, Easy Bruising, Lymphadenopathy, Other Past Patient History - Infectious Disease Hx of Infectious Diseases: None - Past Medical History & Family History Past Medical History?: Yes - Past Social History Smoking Status: Former Smoker - CARDIAC Hx Congestive Heart Failure: Yes Hx Hypertension: Yes Hx Peripheral Edema: Yes - PULMONARY Hx Asthma: Yes Hx Chronic Obstructive Pulmonary Disease (COPD): Yes Hx Emphysema: Yes Hx Pneumonia: Yes - NEUROLOGICAL Hx Neurological Disorder: No - HEENT Hx HEENT Problems: No - RENAL Hx Chronic Kidney Disease: No - ENDOCRINE/METABOLIC Hx Diabetes Mellitus Type 2: No - HEMATOLOGICAL/ONCOLOGICAL Hx Human Immunodeficiency Virus (HIV): Yes (Compliant with medications; Unknown CD4 count) - INTEGUMENTARY Hx Dermatological Problems: No - MUSCULOSKELETAL/RHEUMATOLOGICAL Hx Falls: Yes - GASTROINTESTINAL Hx Gastrointestinal Disorders: No - GENITOURINARY/GYNECOLOGICAL Hx Genitourinary Disorders: No - PSYCHIATRIC Hx Substance Use: No - SURGICAL HISTORY Hx Coronary Stent: Yes (x2) - ANESTHESIA Hx Anesthesia: Yes Hx Anesthesia Reactions: No Hx Malignant Hyperthermia: No Has any member of the family had a problem w/ anesthesia?: No Meds Home Medications: Home Medication List Medication Instructions Recorded Confirmed Type Abacavir Sulfate/Lamivudine 1 each PO DAILY #30 tablet 06/21/17 Rx [Abacavir-Lamivudine 600-300 mg] Bosentan [Tracleer] 62.5 mg PO BID #180 tablet 06/21/17 Rx Carvedilol [Coreg] 6.25 mg PO BID #180 tablet 06/21/17 Rx Darunavir [Prezista] 800 mg PO DAILY #30 tab 06/21/17 Rx Ergocalciferol (Vitamin D2) 2,000 iu PO DAILY #30 tab 06/21/17 Rx [Vitamin D2] Escitalopram [Lexapro] 10 mg PO HS #30 tab 06/21/17 Rx Lisinopril 2.5 mg PO DAILY #90 tablet 06/21/17 Rx MetFORMIN [glucOPHAGE] 1,000 mg PO BID #180 tab 06/21/17 Rx Ritonavir [Norvir] 100 mg PO DAILY #30 cap 06/21/17 Rx Sildenafil Citrate [Viagra] 25 mg PO TID 30 Days #90 tablet 06/21/17 Rx Allergies/Adverse Reactions: Allergies Allergy/AdvReac Type Severity Reaction Status Date / Time shellfish derived Allergy Severe ANAPHYLAXIS Verified 06/18/17 15:33 aspirin Allergy ANAPHYLAXIS Verified 06/18/17 15:33 EGG Allergy ITCHING Verified 06/18/17 15:33 Penicillins Allergy RASH Verified 06/18/17 15:33 shrimp Allergy ANAPHYLAXIS Verified 06/18/17 15:33 - Medications Medications: Current Medications Abacavir/Lamivudine (Epzicom) 1 tab PO DAILY [facility] Last Admin: 06/23/17 09:25 Dose: 1 tab Acetaminophen (Tylenol 325mg Tab) 650 mg PO Q6 PRN PRN Reason: Pain, severe (8-10) Darunavir (Prezista) 800 mg PO DAILY [facility] Last Admin: 06/23/17 09:25 Dose: 800 mg Dextrose (Dextrose 50% Inj) 0 ml IV STAT PRN; Protocol PRN Reason: Hyglycemia Protocol Dextrose (Glutose 15) 0 gm PO ONCE PRN; Protocol PRN Reason: Hypoglycemia Protocol Enoxaparin Sodium (Lovenox) 40 mg SC DAILY [facility] Last Admin: 06/23/17 09:24 Dose: 40 mg Escitalopram Oxalate (Lexapro) 10 mg PO HS [facility] Last Admin: 06/22/17 22:02 Dose: Not Given Famotidine (Pepcid) 40 mg PO DAILY [facility] Last Admin: 06/23/17 09:23 Dose: 40 mg Furosemide (Lasix) 20 mg IVP Q12 [facility] Last Admin: 06/23/17 10:59 Dose: Not Given Glucagon (Glucagen Diagnostic Kit) 0 mg IM STAT PRN; Protocol PRN Reason: Hypoglycemia Protocol Dextrose (Dextrose 5% In Water 1000 Ml) 1,000 mls @ 0 mls/hr IV .Q0M PRN; Protocol; Per Protocol PRN Reason: Hypoglycemia Protocol Insulin Aspart (Novolog) 0 unit SC ACHS [facility] PRN Reason: Protocol Last Admin: 06/23/17 17:09 Dose: Not Given Lisinopril (Zestril) 2.5 mg PO DAILY [facility] Last Admin: 06/23/17 11:00 Dose: 2.5 mg Methylprednisolone (Solu-Medrol) 20 mg IVP Q6 [facility] Last Admin: 06/23/17 12:17 Dose: 20 mg Metoprolol Tartrate (Lopressor) 12.5 mg PO BID [facility] Last Admin: 06/23/17 11:00 Dose: 12.5 mg Ritonavir (Norvir) 100 mg PO DAILY [facility] Last Admin: 06/23/17 09:25 Dose: 100 mg Tiotropium [place] (Spiriva) 18 mcg INH RQ24 [facility] Last Admin: 06/23/17 11:00 Dose: 18 mcg Physical Exam - Constitutional Appears: Non-toxic, Chronically Ill - Head Exam Head Exam: ATRAUMATIC, NORMAL INSPECTION, NORMOCEPHALIC - Eye Exam Eye Exam: EOMI, PERRL. absent: Scleral icterus - ENT Exam ENT Exam: Mucous Membranes Dry, Normal External Ear Exam - Neck Exam Neck exam: Negative for: Lymphadenopathy - Respiratory Exam Respiratory Exam: Decreased Breath Sounds, Prolonged Expiratory Phase, Rhonchi - Cardiovascular Exam Cardiovascular Exam: REGULAR RHYTHM, +S1, +S2 - GI/Abdominal Exam GI & Abdominal Exam: Diminished Bowel Sounds, Soft. absent: Tenderness - Rectal Exam Rectal Exam: Deferred - Exam Exam: NORMAL INSPECTION - Extremities Exam Extremities exam: Positive for: pedal edema, pedal pulses present. Negative for : calf tenderness - Back Exam Back exam: absent: CVA tenderness (L), CVA tenderness (R) - Neurological Exam Neurological exam: Alert, CN II-XII Intact, Oriented x3, Reflexes Normal - Psychiatric Exam Psychiatric exam: Depressed - Skin Skin Exam: Dry Results - Vital Signs Recent Vital Signs: Last Vital Signs Temp 98.1 F 06/23/17 15:00 Pulse 126 H 06/23/17 15:00 Resp 18 06/23/17 15:00 BP 93/63 L 06/23/17 15:00 Pulse Ox 94 L 06/23/17 15:00 - Labs Result Diagrams: 06/23/17 07:30 06/23/17 07:30 Labs: Laboratory Results - last 24 hr 06/22/17 06/22/17 06/23/17 20:15 21:26 06:17 WBC RBC Hgb Hct MCV MCH MCHC RDW Plt Count MPV Neut % (Auto) Lymph % (Auto) Branch % (Auto) Eos % (Auto) Baso % (Auto) Neut # Lymph # Branch # Eos # Baso # Neutrophils % (Manual) Lymphocytes % (Manual) Monocytes % (Manual) Platelet Estimate Anisocytosis (manual) Puncture Site Rra pCO2 40 pO2 129 H HCO3 31.4 H ABG pH 7.51 H ABG Total CO2 33.1 H ABG O2 Saturation 99.4 H ABG Base Excess 8.2 H Rajeev Test Na ABG Potassium 3.7 A-a O2 Difference 249.0 Respiratory Index 1.9 Sodium 136.0 Chloride 103.0 Glucose 149 H Lactate 1.4 Vent Mode Bipap FiO2 60.0 Inspiratory BiPAP 16 Expiratory BiPAP 5 Potassium Carbon Dioxide Anion Gap BUN Creatinine Est GFR ( Amer) Est GFR (Non-Af Amer) POC Glucose (mg/dL) 144 H 164 H Random Glucose Calcium Phosphorus Magnesium Total Bilirubin AST ALT Alkaline Phosphatase Total Protein Albumin Globulin Albumin/Globulin Ratio Arterial Blood Potassium 3.7 06/23/17 06/23/17 06/23/17 07:30 07:30 13:20 WBC 5.4 RBC 4.27 L Hgb 13.3 Hct 39.4 MCV 92.4 MCH 31.2 H MCHC 33.7 RDW 15.9 H Plt Count 69 L MPV 10.0 Neut % (Auto) 95.2 H Lymph % (Auto) 2.0 L Branch % (Auto) 2.5 Eos % (Auto) 0.0 Baso % (Auto) 0.3 Neut # 5.2 Lymph # 0.1 L Branch # 0.1 Eos # 0.0 Baso # 0.0 Neutrophils % (Manual) 98 H Lymphocytes % (Manual) 1 L Monocytes % (Manual) 1 Platelet Estimate Decreased L Anisocytosis (manual) Slight Puncture Site pCO2 pO2 HCO3 ABG pH ABG Total CO2 ABG O2 Saturation ABG Base Excess Rajeev Test ABG Potassium A-a O2 Difference Respiratory Index Sodium 133 Chloride 94 L Glucose Lactate Vent Mode FiO2 Inspiratory BiPAP Expiratory BiPAP Potassium 4.2 Carbon Dioxide 28 Anion Gap 15 BUN 58 H Creatinine 1.6 H Est GFR ( Amer) 55 Est GFR (Non-Af Amer) 46 POC Glucose (mg/dL) 203 H Random Glucose 149 H Calcium 8.5 L Phosphorus 5.0 H Magnesium 1.8 Total Bilirubin 2.1 H AST 44 ALT 44 Alkaline Phosphatase 66 Total Protein 7.6 Albumin 3.3 L Globulin 4.2 H Albumin/Globulin Ratio 0.8 L Arterial Blood Potassium 06/23/17 16:06 WBC RBC Hgb Hct MCV MCH MCHC RDW Plt Count MPV Neut % (Auto) Lymph % (Auto) Branch % (Auto) Eos % (Auto) Baso % (Auto) Neut # Lymph # Branch # Eos # Baso # Neutrophils % (Manual) Lymphocytes % (Manual) Monocytes % (Manual) Platelet Estimate Anisocytosis (manual) Puncture Site pCO2 pO2 HCO3 ABG pH ABG Total CO2 ABG O2 Saturation ABG Base Excess Rajeev Test ABG Potassium A-a O2 Difference Respiratory Index Sodium Chloride Glucose Lactate Vent Mode FiO2 Inspiratory BiPAP Expiratory BiPAP Potassium Carbon Dioxide Anion Gap BUN Creatinine Est GFR ( Amer) Est GFR (Non-Af Amer) POC Glucose (mg/dL) 142 H Random Glucose Calcium Phosphorus Magnesium Total Bilirubin AST ALT Alkaline Phosphatase Total Protein Albumin Globulin Albumin/Globulin Ratio Arterial Blood Potassium Assessment & Plan - Assessment and Plan (Free Text) Plan: A&P CHF COPD HIV HTN DM Pulm HTN WAQAR Anxiety /Depression AMS r/o pneumonia r/o OI check T cells IV antibiotics
[2017-06-23] MEDS ORDERED: Moxifloxacin IV 400mg/250ml NS 400 MG/250 ML BAG IVPB SCH (18:45)
[2017-06-23 19:02] LABS: CRYPTOCOCCUS ANTIGEN SERUM NEGATIVE (NEGATIVE)
[2017-06-23 19:28] LABS: RAPID PLASMA REAGIN NONREACTIVE (NONREACTIVE)
[2017-06-23 23:18] LABS: RBC URINE 11 /hpf (0-3); URINE BACTERIA RARE (<OCC); URINE BILIRUBIN NEGATIVE (NEGATIVE); URINE BLOOD 2+ (NEGATIVE); URINE COLOR Yellow (YELLOW); URINE GLUCOSE (UA) NORMAL (Normal); URINE KETONE NEGATIVE (NEGATIVE); URINE LEUKOCYTE ESTERASE NEG Leu/uL (Negative); URINE PROTEIN 1+ mg/dL (NEGATIVE); URINE UROBILINOGEN NORMAL mg/dL (0.2-1.0); WBC URINE 4 /hpf (0-5)
[2017-06-24] MEDS: MethylPREDNISolone 40 mg Vial IVP SCH ×4 (00:20→17:32)
[2017-06-24] MEDS: Tiotropium 18 mcg Cap For Inhalation INH SCH (07:58)
[2017-06-24] MEDS: (Novolog) Insulin Aspart, Recombinant 100 u/ml 10 ml vial SC SCH ×4 (08:29→22:32)
[2017-06-24] MEDS: Atovaquone 750 mg/5 ml Susp UD PO SCH ×2 (09:09→18:21)
[2017-06-24] MEDS: Enoxaparin 40 mg Syringe SC SCH (09:09)
[2017-06-24] MEDS: Abacavir/Lamivudine 600 mg-300 mg Tab PO SCH (09:10)
[2017-06-24 18:07] LABS: CYTOMEGALOVIRUS AB (IGG) >10.00 U/mL
--- NOTE | 2017-06-24 21:17 | CARD ---
APPROVED REPORT EKG Measurement Heart [id number] [id number] <Conclusion> Sinus tachycardia Left axis deviation Right bundle branch block Abnormal ECG
[2017-06-25] MEDS: MethylPREDNISolone 40 mg Vial IVP SCH ×4 (00:12→18:20)
[2017-06-25 06:31] LABS: HEMATOCRIT 40.6 % (35.0-51.0); LYMPH # 0.1 K/uL (1.0-4.3); LYMPH % 1.8 % (20.0-40.0); MEAN CELL VOLUME 92.5 fL (80.0-94.0); MEAN CORPUSCULAR HEMOGLOBIN 31.1 pg (27.0-31.0); MEAN CORPUSCULAR HGB CONC 33.6 g/dL (33.0-37.0); MEAN PLATELET VOLUME 9.5 fL (7.2-11.7); MONO # 0.2 K/uL (0.0-0.8); MONO % 3.1 % (0.0-10.0); PLATELET COUNT 74 K/uL (130-400); RED CELL DISTRIBUTION WIDTH 15.8 % (11.5-14.5); WHITE BLOOD COUNT 6.3 K/uL (4.8-10.8)
[2017-06-25] MEDS: (Novolog) Insulin Aspart, Recombinant 100 u/ml 10 ml vial SC SCH ×4 (07:30→22:16)
[2017-06-25 07:40] LABS: ALB/GLOB RATIO 0.8 (1.0-2.1); BILIRUBIN,TOTAL 2.4 mg/dL (0.2-1.3); CALCIUM 8.6 mg/dl (8.6-10.4); PHOSPHOROUS 4.8 mg/dL (2.5-4.5); TOTAL PROTEIN 7.5 g/dL (6.3-8.3)
[2017-06-25 07:41] LABS: MAGNESIUM 1.9 mg/dL (1.6-2.3)
[2017-06-25] MEDS: Tiotropium 18 mcg Cap For Inhalation INH SCH (07:56)
--- NOTE | 2017-06-25 08:17 | PN ---
DATE: The patient needed supportive care. The patient's elevated ammonia level. Hepatic encephalopathy, start lactulose therapy. . Anant Anderson MD
[2017-06-25 09:13] LABS: NEUTROPHIL 95 % (50-75); TOTAL CELLS COUNTED 100
[2017-06-25] MEDS: Atovaquone 750 mg/5 ml Susp UD PO SCH ×2 (09:26→18:29)
[2017-06-25] MEDS: Abacavir/Lamivudine 600 mg-300 mg Tab PO SCH (09:28)
[2017-06-25] MEDS: Enoxaparin 40 mg Syringe SC SCH (09:45)
[2017-06-25] MEDS ORDERED: SILDENAFIL PO SCH (10:00)
[2017-06-25 10:21] LABS: POTASSIUM 3.3 mmol/L (3.6-5.2)
--- NOTE | 2017-06-25 11:30 | CP.PCM.PN ---
Subjective - Date & Time of Evaluation Date of Evaluation: 06/25/17 Time of Evaluation: 11:32 - Subjective Subjective: Patient seen and examined at bedside today; not in any acute distress and is no longer obtunded; patient has no complaints to offer. Objective - Vital Signs/Intake and Output Vital Signs (last 24 hours): Temp Pulse Resp BP Pulse Ox 97.5 F L 85 18 105/74 95 06/25/17 07:20 06/25/17 07:56 06/25/17 07:20 06/25/17 09:50 06/25/17 07:20 Intake and Output: 06/25/17 06/25/17 06:59 18:59 Intake Total 400 Balance 400 - Medications Medications: Current Medications Abacavir/Lamivudine (Epzicom) 1 tab PO DAILY [facility] Last Admin: 06/25/17 09:28 Dose: 1 tab Acetaminophen (Tylenol 325mg Tab) 650 mg PO Q6 PRN PRN Reason: Pain, severe (8-10) Last Admin: 06/25/17 03:26 Dose: 650 mg Atovaquone (Mepron) 750 mg PO BID [facility] Last Admin: 06/25/17 09:26 Dose: 750 mg Darunavir (Prezista) 800 mg PO DAILY [facility] Last Admin: 06/25/17 09:28 Dose: 800 mg Dextrose (Dextrose 50% Inj) 0 ml IV STAT PRN; Protocol PRN Reason: Hyglycemia Protocol Dextrose (Glutose 15) 0 gm PO ONCE PRN; Protocol PRN Reason: Hypoglycemia Protocol Enoxaparin Sodium (Lovenox) 40 mg SC DAILY [facility] Last Admin: 06/25/17 09:45 Dose: 40 mg Escitalopram Oxalate (Lexapro) 10 mg PO HS [facility] Last Admin: 06/24/17 21:12 Dose: 10 mg Famotidine (Pepcid) 40 mg PO DAILY [facility] Last Admin: 06/25/17 09:26 Dose: 40 mg Furosemide (Lasix) 20 mg IVP Q12 [facility] Last Admin: 06/25/17 09:50 Dose: 20 mg Glucagon (Glucagen Diagnostic Kit) 0 mg IM STAT PRN; Protocol PRN Reason: Hypoglycemia Protocol Home Med (Home Med) 1 unit PO TID [facility] Insulin Aspart (Novolog) 0 unit SC ACHS [facility] PRN Reason: Protocol Last Admin: 06/25/17 07:30 Dose: Not Given Lactulose (Enulose) 20 gm PO TID [facility] Last Admin: 06/25/17 09:46 Dose: 20 gm Lisinopril (Zestril) 2.5 mg PO DAILY [facility] Last Admin: 06/25/17 09:29 Dose: 2.5 mg Methylprednisolone (Solu-Medrol) 20 mg IVP Q6 [facility] Last Admin: 06/25/17 06:38 Dose: 20 mg Metoprolol Tartrate (Lopressor) 12.5 mg PO BID [facility] Last Admin: 06/25/17 09:49 Dose: Not Given Moxifloxacin HCl (Avelox) 400 mg PO Q24H [facility] Last Admin: 06/24/17 19:00 Dose: 400 mg Rifaximin (Xifaxan) 550 mg PO BID [facility] Ritonavir (Norvir) 100 mg PO DAILY [facility] Last Admin: 06/25/17 09:28 Dose: 100 mg Tiotropium [place] (Spiriva) 18 mcg INH RQ24 [facility] Last Admin: 06/25/17 07:56 Dose: Not Given - Labs Labs: 06/25/17 06:19 06/25/17 06:19 - Constitutional Appears: Non-toxic - Head Exam Head Exam: ATRAUMATIC - Eye Exam Eye Exam: EOMI Pupil Exam: PERRL - ENT Exam ENT Exam: Mucous Membranes Moist - Neck Exam Neck Exam: Full ROM - Respiratory Exam Respiratory Exam: Rales. absent: Clear to Ausculation Bilateral - Cardiovascular Exam Cardiovascular Exam: Tachycardia - GI/Abdominal Exam GI & Abdominal Exam: Soft - Extremities Exam Extremities Exam: Pedal Edema. absent: Calf Tenderness - Back Exam Back Exam: absent: CVA tenderness (L), CVA tenderness (R) - Neurological Exam Neurological Exam: Awake, Oriented x3 - Psychiatric Exam Psychiatric exam: Normal Affect - Skin Skin Exam: Warm Assessment and Plan - Assessment and Plan (Free Text) Assessment: Chronic Hep C w/ Hepatic Encephalopathy 2/2 to increased ammonia; resolved 06/25: d/c xanax, d/c 1:1; patient receiving lactulose and rifamixin; CT normal ; patient has chronic Hep C; will need to follow up for possible treatment as outpatient 06/23: encephalopathy, dc Xanax, Fall precations, he will be 1:1 because he needs close monitoring and also redirection. CT scan without contrast due to renal function issues, consider MRI and neurology consult. CHF Exacerbation; diastolic dysfunction preserved EF; stable -stable -bipap at night and when needed -continue with Lasix 40mg IVP, coreg 6.25mg bid, I&Os, nasal canula -Last echo in 05/30; diastolic dysfunction with preserved EF w/ severe pulm HTN -patient has CAD -c/w Coreg, Lasix -allergies to Aspirin -Lisinopril low dose COPD: 06/25: ABG ordered on room air for 11am; f/u results for home O2 06/23: stoped Duoneb and put him on Solumedrol, he does qualify for home O2 with room air abg, continue giv BIPAP 06/22: Continue with duoneb q6h and Solumedrol 20mg Q6, Room air abg today, patient will need home oxygen set up. Pulm HTN 06/25: called pharmacy regarding viagra that was "meds to bed"; pharmacy states the medications were delivered to the floor and the floor cannot find them. The patient does not have them at bedside either. The patient needs to take TID Viagra 25mg as per Dr. Anderson 06/23: Dr. Ozuna consulted, this could be secondary to HIV. 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 Barrios consulted. Follow up labs for RPR, Toxo, Cryptococcus, and CMV c/w ART Depression 06/23: Dr. Dotson consulted for depression which according the patient's family has worsened since admission started lexapro HS -denies SI/HI; no plan to hurt self Proph -Heart Healthy Diet -Meds to bed being used so patient can have access to his medications -Pepcid/Lovenox
[2017-06-25 15:00] LABS: ARTERIAL BLOOD HGB O2 SAT 84.4 % (95.0-98.0); CARBOXYHEMOGLOBIN 2.6 % (0.5-1.5); DRAW SITE L/B; HHB 11.7 % (0.0-5.0); METHEMOGLOBIN 1.2 % (0.0-3.0)
[2017-06-25] MEDS ORDERED: Potassium Chloride 20 mEq ER Tab PO ONE (16:01)
--- NOTE | 2017-06-25 16:58 | CP.PCM.PN ---
Subjective - Date & Time of Evaluation Date of Evaluation: 06/25/17 Time of Evaluation: 07:00 - Subjective Subjective: less confused awake and alert nad less sob afeb Objective - Vital Signs/Intake and Output Vital Signs (last 24 hours): Temp Pulse Resp BP Pulse Ox 97.4 F L 130 H 20 104/73 95 06/25/17 15:44 06/25/17 15:44 06/25/17 15:44 06/25/17 15:44 06/25/17 07:20 Intake and Output: 06/25/17 06/25/17 06:59 18:59 Intake Total 400 300 Balance 400 300 - Medications Medications: Current Medications Abacavir/Lamivudine (Epzicom) 1 tab PO DAILY [facility] Last Admin: 06/25/17 09:28 Dose: 1 tab Acetaminophen (Tylenol 325mg Tab) 650 mg PO Q6 PRN PRN Reason: Pain, severe (8-10) Last Admin: 06/25/17 12:14 Dose: 650 mg Atovaquone (Mepron) 750 mg PO BID [facility] Last Admin: 06/25/17 09:26 Dose: 750 mg Darunavir (Prezista) 800 mg PO DAILY [facility] Last Admin: 06/25/17 09:28 Dose: 800 mg Dextrose (Dextrose 50% Inj) 0 ml IV STAT PRN; Protocol PRN Reason: Hyglycemia Protocol Dextrose (Glutose 15) 0 gm PO ONCE PRN; Protocol PRN Reason: Hypoglycemia Protocol Enoxaparin Sodium (Lovenox) 40 mg SC DAILY [facility] Last Admin: 06/25/17 09:45 Dose: 40 mg Escitalopram Oxalate (Lexapro) 10 mg PO HS [facility] Last Admin: 06/24/17 21:12 Dose: 10 mg Famotidine (Pepcid) 40 mg PO DAILY [facility] Last Admin: 06/25/17 09:26 Dose: 40 mg Furosemide (Lasix) 20 mg IVP Q12 [facility] Last Admin: 06/25/17 09:50 Dose: 20 mg Glucagon (Glucagen Diagnostic Kit) 0 mg IM STAT PRN; Protocol PRN Reason: Hypoglycemia Protocol Home Med (Home Med) 1 unit PO TID [facility] Insulin Aspart (Novolog) 0 unit SC ACHS [facility] PRN Reason: Protocol Last Admin: 06/25/17 12:20 Dose: 2 unit Lactulose (Enulose) 20 gm PO TID [facility] Last Admin: 06/25/17 14:03 Dose: 20 gm Lisinopril (Zestril) 2.5 mg PO DAILY [facility] Last Admin: 06/25/17 09:29 Dose: 2.5 mg Methylprednisolone (Solu-Medrol) 20 mg IVP Q6 [facility] Last Admin: 06/25/17 12:23 Dose: 20 mg Metoprolol Tartrate (Lopressor) 12.5 mg PO BID [facility] Last Admin: 06/25/17 09:49 Dose: Not Given Moxifloxacin HCl (Avelox) 400 mg PO Q24H [facility] Last Admin: 06/24/17 19:00 Dose: 400 mg Rifaximin (Xifaxan) 550 mg PO BID [facility] Last Admin: 06/25/17 14:00 Dose: 550 mg Ritonavir (Norvir) 100 mg PO DAILY [facility] Last Admin: 06/25/17 09:28 Dose: 100 mg Tiotropium [place] (Spiriva) 18 mcg INH RQ24 [facility] Last Admin: 06/25/17 07:56 Dose: Not Given - Labs Labs: 06/25/17 06:19 06/25/17 06:19 - Constitutional Appears: Non-toxic, Chronically Ill - Head Exam Head Exam: NORMOCEPHALIC - Eye Exam Eye Exam: PERRL - ENT Exam ENT Exam: Mucous Membranes Dry - Neck Exam Neck Exam: absent: Lymphadenopathy - Respiratory Exam Respiratory Exam: Decreased Breath Sounds - Cardiovascular Exam Cardiovascular Exam: REGULAR RHYTHM - GI/Abdominal Exam GI & Abdominal Exam: Distended, Soft - Rectal Exam Rectal Exam: Deferred - Exam Exam: NORMAL INSPECTION - Extremities Exam Extremities Exam: Pedal Edema - Back Exam Back Exam: absent: CVA tenderness (L), CVA tenderness (R) Assessment and Plan (1) Hepatitis C antibody positive in blood Status: Acute (2) Hepatitis C antibody positive in blood Status: Acute (3) CHF (congestive heart failure), NYHA class II Status: Acute (4) Diabetes mellitus Status: Chronic (5) WAQAR (acute kidney injury) Status: Acute (6) Bilateral leg edema Status: Acute (7) CHF (NYHA class III, ACC/AHA stage C) Status: Acute (8) COPD bronchitis Status: Acute (9) HIV disease Status: Acute - Assessment and Plan (Free Text) Assessment: cont rx for pneumonia encephalopathy improved has cmv + consider ophthomology eval may need CMV prophylaxis await Hep c viral load
--- NOTE | 2017-06-25 22:57 | CP.PCM.PN ---
Subjective - Date & Time of Evaluation Date of Evaluation: 06/24/17 Time of Evaluation: 07:05 - Subjective Subjective: Patient seen and evaluated Objective - Vital Signs/Intake and Output Vital Signs (last 24 hours): Temp Pulse Resp BP Pulse Ox 97.4 F L 81 20 107/70 95 06/25/17 15:44 06/25/17 22:00 06/25/17 15:44 06/25/17 22:06 06/25/17 07:20 Intake and Output: 06/25/17 06/26/17 18:59 06:59 Intake Total 300 Balance 300 - Medications Medications: Current Medications Abacavir/Lamivudine (Epzicom) 1 tab PO DAILY [facility] Last Admin: 06/25/17 09:28 Dose: 1 tab Acetaminophen (Tylenol 325mg Tab) 650 mg PO Q6 PRN PRN Reason: Pain, severe (8-10) Last Admin: 06/25/17 20:23 Dose: 650 mg Atovaquone (Mepron) 750 mg PO BID [facility] Last Admin: 06/25/17 18:29 Dose: 750 mg Darunavir (Prezista) 800 mg PO DAILY [facility] Last Admin: 06/25/17 09:28 Dose: 800 mg Dextrose (Dextrose 50% Inj) 0 ml IV STAT PRN; Protocol PRN Reason: Hyglycemia Protocol Dextrose (Glutose 15) 0 gm PO ONCE PRN; Protocol PRN Reason: Hypoglycemia Protocol Enoxaparin Sodium (Lovenox) 40 mg SC DAILY [facility] Last Admin: 06/25/17 09:45 Dose: 40 mg Escitalopram Oxalate (Lexapro) 10 mg PO HS [facility] Last Admin: 06/25/17 22:05 Dose: 10 mg Famotidine (Pepcid) 40 mg PO DAILY [facility] Last Admin: 06/25/17 09:26 Dose: 40 mg Furosemide (Lasix) 20 mg IVP Q12 [facility] Last Admin: 06/25/17 22:06 Dose: 20 mg Glucagon (Glucagen Diagnostic Kit) 0 mg IM STAT PRN; Protocol PRN Reason: Hypoglycemia Protocol Home Med (Home Med) 1 unit PO TID [facility] Insulin Aspart (Novolog) 0 unit SC ACHS E[facility] PRN Reason: Protocol Last Admin: 06/25/17 22:16 Dose: Not Given Lactulose (Enulose) 20 gm PO TID [facility] Last Admin: 06/25/17 19:00 Dose: 20 gm Lisinopril (Zestril) 2.5 mg PO DAILY [facility] Last Admin: 06/25/17 09:29 Dose: 2.5 mg Methylprednisolone (Solu-Medrol) 20 mg IVP Q6 [facility] Last Admin: 06/25/17 18:20 Dose: 20 mg Metoprolol Tartrate (Lopressor) 12.5 mg PO BID [facility] Last Admin: 06/25/17 18:20 Dose: 12.5 mg Moxifloxacin HCl (Avelox) 400 mg PO Q24H [facility] Last Admin: 06/25/17 19:05 Dose: 400 mg Rifaximin (Xifaxan) 550 mg PO BID [facility] Last Admin: 06/25/17 22:05 Dose: 550 mg Ritonavir (Norvir) 100 mg PO DAILY [facility] Last Admin: 06/25/17 09:28 Dose: 100 mg Tiotropium [place] (Spiriva) 18 mcg INH RQ24 [facility] Last Admin: 06/25/17 07:56 Dose: Not Given - Labs Labs: 06/25/17 06:19 06/25/17 06:19
--- NOTE | 2017-06-25 23:01 | CP.PCM.PN ---
Subjective - Date & Time of Evaluation Date of Evaluation: 06/25/17 Time of Evaluation: 07:10 - Subjective Subjective: Patient seen and evaluated Improved breathing Objective - Vital Signs/Intake and Output Vital Signs (last 24 hours): Temp Pulse Resp BP Pulse Ox 97.4 F L 81 20 107/70 95 06/25/17 15:44 06/25/17 22:00 06/25/17 15:44 06/25/17 22:06 06/25/17 07:20 Intake and Output: 06/25/17 06/26/17 18:59 06:59 Intake Total 300 Balance 300 - Medications Medications: Current Medications Abacavir/Lamivudine (Epzicom) 1 tab PO DAILY [facility] Last Admin: 06/25/17 09:28 Dose: 1 tab Acetaminophen (Tylenol 325mg Tab) 650 mg PO Q6 PRN PRN Reason: Pain, severe (8-10) Last Admin: 06/25/17 20:23 Dose: 650 mg Atovaquone (Mepron) 750 mg PO BID [facility] Last Admin: 06/25/17 18:29 Dose: 750 mg Darunavir (Prezista) 800 mg PO DAILY [facility] Last Admin: 06/25/17 09:28 Dose: 800 mg Dextrose (Dextrose 50% Inj) 0 ml IV STAT PRN; Protocol PRN Reason: Hyglycemia Protocol Dextrose (Glutose 15) 0 gm PO ONCE PRN; Protocol PRN Reason: Hypoglycemia Protocol Enoxaparin Sodium (Lovenox) 40 mg SC DAILY [facility] Last Admin: 06/25/17 09:45 Dose: 40 mg Escitalopram Oxalate (Lexapro) 10 mg PO HS [facility] Last Admin: 06/25/17 22:05 Dose: 10 mg Famotidine (Pepcid) 40 mg PO DAILY [facility] Last Admin: 06/25/17 09:26 Dose: 40 mg Furosemide (Lasix) 20 mg IVP Q12 [facility] Last Admin: 06/25/17 22:06 Dose: 20 mg Glucagon (Glucagen Diagnostic Kit) 0 mg IM STAT PRN; Protocol PRN Reason: Hypoglycemia Protocol Home Med (Home Med) 1 unit PO TID [facility] Insulin Aspart (Novolog) 0 unit SC ACHS [facility] PRN Reason: Protocol Last Admin: 06/25/17 22:16 Dose: Not Given Lactulose (Enulose) 20 gm PO TID [facility] Last Admin: 06/25/17 19:00 Dose: 20 gm Lisinopril (Zestril) 2.5 mg PO DAILY [facility] Last Admin: 06/25/17 09:29 Dose: 2.5 mg Methylprednisolone (Solu-Medrol) 20 mg IVP Q6 [facility] Last Admin: 06/25/17 18:20 Dose: 20 mg Metoprolol Tartrate (Lopressor) 12.5 mg PO BID [facility] Last Admin: 06/25/17 18:20 Dose: 12.5 mg Moxifloxacin HCl (Avelox) 400 mg PO Q24H [facility] Last Admin: 06/25/17 19:05 Dose: 400 mg Rifaximin (Xifaxan) 550 mg PO BID [facility] Last Admin: 06/25/17 22:05 Dose: 550 mg Ritonavir (Norvir) 100 mg PO DAILY [facility] Last Admin: 06/25/17 09:28 Dose: 100 mg Tiotropium [place] (Spiriva) 18 mcg INH RQ24 [facility] Last Admin: 06/25/17 07:56 Dose: Not Given - Labs Labs: 06/25/17 06:19 06/25/17 06:19
[2017-06-26] MEDS: MethylPREDNISolone 40 mg Vial IVP SCH ×5 (00:56→23:56)
[2017-06-26] MEDS: (Novolog) Insulin Aspart, Recombinant 100 u/ml 10 ml vial SC SCH ×5 (07:32→22:28)
[2017-06-26] MEDS: Atovaquone 750 mg/5 ml Susp UD PO SCH ×2 (10:05→18:23)
[2017-06-26] MEDS: Abacavir/Lamivudine 600 mg-300 mg Tab PO SCH (10:08)
[2017-06-26] MEDS: Enoxaparin 40 mg Syringe SC SCH (10:09)
--- NOTE | 2017-06-26 21:19 | CP.PCM.PN ---
Subjective - Date & Time of Evaluation Date of Evaluation: 06/26/17 Time of Evaluation: 18:30 - Subjective Subjective: Called for Tachycardia and patient with no chest pain or palpitations BP bordeline Hold Lisisnopril for now Increase Lopressor to 25 mg po bid Objective - Vital Signs/Intake and Output Vital Signs (last 24 hours): Temp Pulse Resp BP Pulse Ox 97.6 F 125 H 20 108/78 94 L 06/26/17 16:13 06/26/17 16:13 06/26/17 16:13 06/26/17 16:13 06/26/17 16:13 - Medications Medications: Current Medications Abacavir/Lamivudine (Epzicom) 1 tab PO DAILY [facility] Last Admin: 06/26/17 10:08 Dose: 1 tab Acetaminophen (Tylenol 325mg Tab) 650 mg PO Q6 PRN PRN Reason: Pain, severe (8-10) Last Admin: 06/26/17 15:59 Dose: 650 mg Atovaquone (Mepron) 750 mg PO BID [facility] Last Admin: 06/26/17 18:23 Dose: 750 mg Darunavir (Prezista) 800 mg PO DAILY [facility] Last Admin: 06/26/17 10:07 Dose: 800 mg Dextrose (Dextrose 50% Inj) 0 ml IV STAT PRN; Protocol PRN Reason: Hyglycemia Protocol Dextrose (Glutose 15) 0 gm PO ONCE PRN; Protocol PRN Reason: Hypoglycemia Protocol Enoxaparin Sodium (Lovenox) 40 mg SC DAILY [facility] Last Admin: 06/26/17 10:09 Dose: 40 mg Escitalopram Oxalate (Lexapro) 10 mg PO HS [facility] Last Admin: 06/25/17 22:05 Dose: 10 mg Famotidine (Pepcid) 40 mg PO DAILY [facility] Last Admin: 06/26/17 10:04 Dose: 40 mg Furosemide (Lasix) 20 mg IVP Q12 [facility] Last Admin: 06/26/17 10:04 Dose: 20 mg Glucagon (Glucagen Diagnostic Kit) 0 mg IM STAT PRN; Protocol PRN Reason: Hypoglycemia Protocol Home Med (Home Med) 1 unit PO TID [facility] Last Admin: 06/26/17 10:26 Dose: Not Given Insulin Aspart (Novolog) 0 unit SC ACHS [facility] PRN Reason: Protocol Last Admin: 06/26/17 17:30 Dose: 1 unit Lactulose (Enulose) 20 gm PO TID [facility] Last Admin: 06/26/17 14:23 Dose: 20 gm Methylprednisolone (Solu-Medrol) 20 mg IVP Q6 [facility] Last Admin: 06/26/17 18:23 Dose: 20 mg Metoprolol Tartrate (Lopressor) 12.5 mg PO BID [facility] Last Admin: 06/26/17 17:00 Dose: 12.5 mg Metoprolol Tartrate (Lopressor) 25 mg PO BID [facility] Moxifloxacin HCl (Avelox) 400 mg PO Q24H [facility] Last Admin: 06/26/17 18:25 Dose: 400 mg Rifaximin (Xifaxan) 550 mg PO BID [facility] Last Admin: 06/26/17 18:25 Dose: 550 mg Ritonavir (Norvir) 100 mg PO DAILY [facility] Last Admin: 06/26/17 10:06 Dose: 100 mg Tiotropium [place] (Spiriva) 18 mcg INH RQ24 [facility] Last Admin: 06/25/17 07:56 Dose: Not Given - Labs Labs: 06/25/17 06:19 06/25/17 06:19
[2017-06-27] MEDS: MethylPREDNISolone 40 mg Vial IVP SCH ×4 (05:13→23:56)
[2017-06-27] MEDS: (Novolog) Insulin Aspart, Recombinant 100 u/ml 10 ml vial SC SCH ×4 (08:31→22:36)
[2017-06-27] MEDS: Tiotropium 18 mcg Cap For Inhalation INH SCH (10:09)
[2017-06-27] MEDS: Enoxaparin 40 mg Syringe SC SCH (10:11)
[2017-06-27] MEDS: Atovaquone 750 mg/5 ml Susp UD PO SCH ×2 (10:12→18:29)
[2017-06-27] MEDS: Abacavir/Lamivudine 600 mg-300 mg Tab PO SCH (10:13)
--- NOTE | 2017-06-27 14:21 | CP.PCM.PN ---
Subjective - Date & Time of Evaluation Date of Evaluation: 06/27/17 Time of Evaluation: 08:00 - Subjective Subjective: events noted denies fever less lethargic Objective - Vital Signs/Intake and Output Vital Signs (last 24 hours): Temp Pulse Resp BP Pulse Ox 98.2 F 84 18 139/98 H 98 06/27/17 07:25 06/27/17 07:25 06/27/17 07:25 06/27/17 10:16 06/27/17 07:25 Intake and Output: 06/27/17 06/27/17 06:59 18:59 Intake Total 600 Output Total 350 Balance 250 - Medications Medications: Current Medications Abacavir/Lamivudine (Epzicom) 1 tab PO DAILY [facility] Last Admin: 06/27/17 10:13 Dose: 1 tab Acetaminophen (Tylenol 325mg Tab) 650 mg PO Q6 PRN PRN Reason: Pain, severe (8-10) Last Admin: 06/26/17 15:59 Dose: 650 mg Atovaquone (Mepron) 750 mg PO BID [facility] Last Admin: 06/27/17 10:12 Dose: 750 mg Darunavir (Prezista) 800 mg PO DAILY [facility] Last Admin: 06/27/17 10:14 Dose: 800 mg Dextrose (Dextrose 50% Inj) 0 ml IV STAT PRN; Protocol PRN Reason: Hyglycemia Protocol Dextrose (Glutose 15) 0 gm PO ONCE PRN; Protocol PRN Reason: Hypoglycemia Protocol Enoxaparin Sodium (Lovenox) 40 mg SC DAILY [facility] Last Admin: 06/27/17 10:11 Dose: 40 mg Escitalopram Oxalate (Lexapro) 10 mg PO HS [facility] Last Admin: 06/26/17 22:27 Dose: 10 mg Famotidine (Pepcid) 40 mg PO DAILY [facility] Last Admin: 06/27/17 10:11 Dose: 40 mg Furosemide (Lasix) 20 mg IVP Q12 [facility] Last Admin: 06/27/17 10:16 Dose: 20 mg Glucagon (Glucagen Diagnostic Kit) 0 mg IM STAT PRN; Protocol PRN Reason: Hypoglycemia Protocol Home Med (Home Med) 1 unit PO TID [facility] Last Admin: 06/26/17 10:26 Dose: Not Given Insulin Aspart (Novolog) 0 unit SC ACHS [facility] PRN Reason: Protocol Last Admin: 06/27/17 12:50 Dose: 2 unit Lactulose (Enulose) 20 gm PO TID [facility] Last Admin: 06/27/17 10:17 Dose: 20 gm Methylprednisolone (Solu-Medrol) 20 mg IVP Q6 [facility] Last Admin: 06/27/17 12:49 Dose: 20 mg Metoprolol Tartrate (Lopressor) 25 mg PO BID [facility] Last Admin: 06/27/17 10:10 Dose: 25 mg Moxifloxacin HCl (Avelox) 400 mg PO Q24H [facility] Last Admin: 06/26/17 18:25 Dose: 400 mg Rifaximin (Xifaxan) 550 mg PO BID [facility] Last Admin: 06/27/17 10:13 Dose: 550 mg Ritonavir (Norvir) 100 mg PO DAILY [facility] Last Admin: 06/27/17 10:13 Dose: 100 mg Tiotropium [place] (Spiriva) 18 mcg INH RQ24 [facility] Last Admin: 06/27/17 10:09 Dose: 18 mcg - Labs Labs: 06/25/17 06:19 06/25/17 06:19 - Constitutional Appears: Non-toxic, Chronically Ill - Head Exam Head Exam: NORMOCEPHALIC - Eye Exam Eye Exam: EOMI, PERRL - ENT Exam ENT Exam: Mucous Membranes Dry - Neck Exam Neck Exam: absent: Lymphadenopathy - Respiratory Exam Respiratory Exam: Decreased Breath Sounds - Cardiovascular Exam Cardiovascular Exam: REGULAR RHYTHM - GI/Abdominal Exam GI & Abdominal Exam: Distended, Soft - Rectal Exam Rectal Exam: Deferred - Exam Exam: NORMAL INSPECTION - Extremities Exam Extremities Exam: absent: Pedal Edema - Back Exam Back Exam: absent: CVA tenderness (L), CVA tenderness (R) - Neurological Exam Neurological Exam: Alert, Awake, Oriented x3 - Psychiatric Exam Psychiatric exam: Depressed - Skin Skin Exam: Dry Assessment and Plan (1) Hepatitis C antibody positive in blood Status: Acute (2) Hepatitis C antibody positive in blood Status: Acute (3) CHF (congestive heart failure), NYHA class II Status: Acute (4) Diabetes mellitus Status: Chronic (5) WAQAR (acute kidney injury) Status: Acute (6) Bilateral leg edema Status: Acute (7) CHF (NYHA class III, ACC/AHA stage C) Status: Acute (8) COPD bronchitis Status: Acute (9) HIV disease Status: Acute
[2017-06-28] MEDS: MethylPREDNISolone 40 mg Vial IVP SCH ×3 (05:13→18:06)
[2017-06-28] MEDS: (Novolog) Insulin Aspart, Recombinant 100 u/ml 10 ml vial SC SCH ×5 (08:30→21:44)
--- NOTE | 2017-06-28 09:30 | CP.PCM.PN ---
Subjective - Date & Time of Evaluation Date of Evaluation: 06/28/17 Time of Evaluation: 11:36 - Subjective Subjective: The patient was seen and examined at bedside; states he feels much better; states he wants to go home but feels it'll be better if he goes home tomorrow; denies any APARICIO, CP, SOB, abdominal pain, N/V/D, dysuria/freq/urg, or lower extremity pain/swelling. Objective - Vital Signs/Intake and Output Vital Signs (last 24 hours): Temp Pulse Resp BP Pulse Ox 98.2 F 86 93 H 121/85 95 06/28/17 07:25 06/28/17 07:25 06/28/17 07:25 06/28/17 07:25 06/28/17 07:25 Intake and Output: 06/28/17 06/28/17 06:59 18:59 Intake Total 480 Balance 480 - Medications Medications: Current Medications Abacavir/Lamivudine (Epzicom) 1 tab PO DAILY [facility] Last Admin: 06/27/17 10:13 Dose: 1 tab Acetaminophen (Tylenol 325mg Tab) 650 mg PO Q6 PRN PRN Reason: Pain, severe (8-10) Last Admin: 06/28/17 03:49 Dose: 650 mg Atovaquone (Mepron) 750 mg PO BID [facility] Last Admin: 06/27/17 18:29 Dose: 750 mg Darunavir (Prezista) 800 mg PO DAILY [facility] Last Admin: 06/27/17 10:14 Dose: 800 mg Dextrose (Dextrose 50% Inj) 0 ml IV STAT PRN; Protocol PRN Reason: Hyglycemia Protocol Dextrose (Glutose 15) 0 gm PO ONCE PRN; Protocol PRN Reason: Hypoglycemia Protocol Enoxaparin Sodium (Lovenox) 40 mg SC DAILY [facility] Last Admin: 06/27/17 10:11 Dose: 40 mg Escitalopram Oxalate (Lexapro) 10 mg PO HS [facility] Last Admin: 06/27/17 22:35 Dose: 10 mg Famotidine (Pepcid) 40 mg PO DAILY [facility] Last Admin: 06/27/17 10:11 Dose: 40 mg Furosemide (Lasix) 20 mg IVP Q12 [facility] Last Admin: 06/27/17 22:35 Dose: Not Given Glucagon (Glucagen Diagnostic Kit) 0 mg IM STAT PRN; Protocol PRN Reason: Hypoglycemia Protocol Home Med (Home Med) 1 unit PO TID [facility] Last Admin: 06/26/17 10:26 Dose: Not Given Ganciclovir 150 mg/ Sodium (Chloride) 100 mls @ 100 mls/hr IV Q12H [facility] Insulin Aspart (Novolog) 0 unit SC ACHS [facility] PRN Reason: Protocol Last Admin: 06/28/17 08:30 Dose: 1 unit Lactulose (Enulose) 20 gm PO TID [facility] Last Admin: 06/27/17 18:56 Dose: Not Given Methylprednisolone (Solu-Medrol) 20 mg IVP Q6 [facility] Last Admin: 06/28/17 05:13 Dose: 20 mg Metoprolol Tartrate (Lopressor) 25 mg PO BID [facility] Last Admin: 06/27/17 18:54 Dose: 25 mg Moxifloxacin HCl (Avelox) 400 mg PO Q24H [facility] Last Admin: 06/27/17 18:23 Dose: 400 mg Rifaximin (Xifaxan) 550 mg PO BID [facility] Last Admin: 06/27/17 18:23 Dose: 550 mg Ritonavir (Norvir) 100 mg PO DAILY [facility] Last Admin: 06/27/17 10:13 Dose: 100 mg Tiotropium [place] (Spiriva) 18 mcg INH RQ24 [facility] Last Admin: 06/27/17 10:09 Dose: 18 mcg - Labs Labs: 06/25/17 06:19 06/25/17 06:19 - Constitutional Appears: Non-toxic - Head Exam Head Exam: ATRAUMATIC - Eye Exam Eye Exam: EOMI - ENT Exam ENT Exam: Mucous Membranes Moist - Neck Exam Neck Exam: Full ROM - Respiratory Exam Respiratory Exam: Clear to Ausculation Bilateral - Cardiovascular Exam Cardiovascular Exam: REGULAR RHYTHM - GI/Abdominal Exam GI & Abdominal Exam: Soft - Extremities Exam Extremities Exam: absent: Calf Tenderness - Back Exam Back Exam: absent: CVA tenderness (L), CVA tenderness (R) - Neurological Exam Neurological Exam: Alert, Awake, Oriented x3 - Psychiatric Exam Psychiatric exam: Normal Affect, Normal Mood - Skin Skin Exam: Warm Assessment and Plan - Assessment and Plan (Free Text) Assessment: Chronic Hep C w/ Hepatic Encephalopathy 2/2 to increased ammonia; resolved 06/25: d/c xanax, d/c 1:1; patient receiving lactulose and rifamixin; CT normal ; patient has chronic Hep C; will need to follow up for possible treatment as outpatient 06/23: encephalopathy, dc Xanax, Fall precations, he will be 1:1 because he needs close monitoring and also redirection. CT scan without contrast due to renal function issues, consider MRI and neurology consult. -patient ammonia is still elevated -patient will need to take lactulose and rifamixin at home to prevent futher hepatic encephalopathy. patient will need outpatient GI followup. CHF Exacerbation; diastolic dysfunction preserved EF; stable with severe Pulm HTN -stable -bipap at night and when needed -continue with Lasix 40mg IVP, coreg 6.25mg bid, I&Os, nasal canula -Last echo in 05/30; diastolic dysfunction with preserved EF w/ severe pulm HTN -patient has CAD -c/w Coreg, Lasix -allergies to Aspirin -Lisinopril low dose -patient unable to fill viagra or bosentan; will need bostentan as outpatient. All meds/prescriptions given to patient already COPD -patient will need home O2; ABG done and orders placed in chart 06/25: ABG ordered on room air for 11am; f/u results for home O2 06/23: stoped Duoneb and put him on Solumedrol, he does qualify for home O2 with room air abg, continue giv BIPAP 06/22: Continue with duoneb q6h and Solumedrol 20mg Q6, Room air abg today, patient will need home oxygen set up. 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 Barrios consulted. Follow up labs for RPR, Toxo, Cryptococcus, and CMV c/w ART patient will need to f/u with infectious disease for further management as outpatient Depression 06/23: Dr. Dotson consulted for depression which according the patient's family has worsened since admission started lexapro HS; c/w with lexapro -denies SI/HI; no plan to hurt self Proph -Heart Healthy Diet -Meds to bed being used so patient can have access to his medications. Patient has his meds -Pepcid/Lovenox held 10/15 to low platlets The patient is stable for d/c as per Dr. Anderson tomorrow; all of his home meds have been printed off and other ones were previously filled for him and are at bedside.
[2017-06-28] MEDS: Tiotropium 18 mcg Cap For Inhalation INH SCH (09:34)
[2017-06-28] MEDS: Enoxaparin 40 mg Syringe SC SCH (09:37)
[2017-06-28] MEDS: Abacavir/Lamivudine 600 mg-300 mg Tab PO SCH (09:37)
[2017-06-28] MEDS: Atovaquone 750 mg/5 ml Susp UD PO SCH ×2 (09:38→17:56)
--- NOTE | 2017-06-28 10:36 | CT ---
PROCEDURE: CT HEAD WITHOUT CONTRAST. HISTORY: HIV, lethargic COMPARISON: Head CT without contrast 04/08/2014. TECHNIQUE: Axial computed tomography images were obtained through the head/brain without intravenous contrast. Radiation dose: Total exam DLP = 1604.30 MGy-cm. This CT exam was performed using one or more of the following dose reduction techniques: Automated exposure control, adjustment of the mA and/or kV according to patient size, and/or use of iterative reconstruction technique. FINDINGS: HEMORRHAGE: No intracranial hemorrhage. BRAIN: Corticomedullary differentiation remains well preserved with no estevez or white matter edema or other focal signal abnormality appreciated throughout the brain parenchyma including the brainstem and cerebellum. There is no mass effect. Extra-axial spaces once again appear grossly unremarkable. Midline brain anatomy is unremarkable with the craniocervical junction intact grossly. VENTRICLES: Unremarkable. No hydrocephalus. CALVARIUM: Unremarkable. Resolution of prior right frontal scalp soft tissue edema. PARANASAL SINUSES: Unremarkable as visualized. No significant inflammatory changes. MASTOID AIR CELLS: Unremarkable as visualized. No inflammatory changes. OTHER FINDINGS: Resolution of prior right maxillary sinus cyst or polyp. IMPRESSION: Normal CT of the Head. No significant intracranial interval change from prior to dated 04/08/2014. Resolution of prior right maxillary sinus cyst or polyp as well as right frontal scalp edema/hematoma. MTDD
--- NOTE | 2017-06-28 12:28 | CARD ---
APPROVED REPORT EKG Measurement Heart [id number] ME [id number] <Conclusion> Sinus tachycardia with premature atrial complexes Nonspecific intraventricular block Cannot rule out Anteroseptal infarct, age undetermined T wave abnormality, consider lateral ischemia Abnormal ECG
--- NOTE | 2017-06-28 21:53 | CP.PCM.PN ---
Subjective - Date & Time of Evaluation Date of Evaluation: 06/28/17 Time of Evaluation: 11:15 Objective - Vital Signs/Intake and Output Vital Signs (last 24 hours): Temp Pulse Resp BP Pulse Ox 97.3 F L 77 20 120/68 98 06/28/17 15:41 06/28/17 15:41 06/28/17 15:41 06/28/17 21:37 06/28/17 15:41 Intake and Output: 06/28/17 06/29/17 18:59 06:59 Intake Total 360 Balance 360 - Medications Medications: Current Medications Abacavir/Lamivudine (Epzicom) 1 tab PO DAILY [facility] Last Admin: 06/28/17 09:37 Dose: 1 tab Acetaminophen (Tylenol 325mg Tab) 650 mg PO Q6 PRN PRN Reason: Pain, severe (8-10) Last Admin: 06/28/17 03:49 Dose: 650 mg Atovaquone (Mepron) 750 mg PO BID [facility] Last Admin: 06/28/17 17:56 Dose: 750 mg Darunavir (Prezista) 800 mg PO DAILY [facility] Last Admin: 06/28/17 09:38 Dose: 800 mg Dextrose (Dextrose 50% Inj) 0 ml IV STAT PRN; Protocol PRN Reason: Hyglycemia Protocol Dextrose (Glutose 15) 0 gm PO ONCE PRN; Protocol PRN Reason: Hypoglycemia Protocol Escitalopram Oxalate (Lexapro) 10 mg PO HS [facility] Last Admin: 06/28/17 21:41 Dose: 10 mg Famotidine (Pepcid) 40 mg PO DAILY [facility] Last Admin: 06/28/17 09:37 Dose: 40 mg Furosemide (Lasix) 20 mg IVP Q12 [facility] Last Admin: 06/28/17 21:37 Dose: 20 mg Glucagon (Glucagen Diagnostic Kit) 0 mg IM STAT PRN; Protocol PRN Reason: Hypoglycemia Protocol Home Med (Home Med) 1 unit PO TID [facility] Last Admin: 06/26/17 10:26 Dose: Not Given Ganciclovir 150 mg/ Sodium (Chloride) 100 mls @ 100 mls/hr IV Q12H [facility] Last Admin: 06/28/17 20:30 Dose: 100 mls/hr Insulin Aspart (Novolog) 0 unit SC ACHS [facility] PRN Reason: Protocol Last Admin: 06/28/17 21:44 Dose: Not Given Lactulose (Enulose) 20 gm PO TID [facility] Last Admin: 06/28/17 17:57 Dose: 20 gm Methylprednisolone (Solu-Medrol) 20 mg IVP Q6 [facility] Last Admin: 06/28/17 18:06 Dose: 20 mg Metoprolol Tartrate (Lopressor) 25 mg PO BID [facility] Last Admin: 06/28/17 17:58 Dose: 25 mg Moxifloxacin HCl (Avelox) 400 mg PO Q24H [facility] Last Admin: 06/28/17 19:00 Dose: 400 mg Rifaximin (Xifaxan) 550 mg PO BID [facility] Last Admin: 06/28/17 17:56 Dose: 550 mg Ritonavir (Norvir) 100 mg PO DAILY [facility] Last Admin: 06/28/17 09:38 Dose: 100 mg Tiotropium [place] (Spiriva) 18 mcg INH RQ24 [facility] Last Admin: 06/28/17 09:34 Dose: 18 mcg - Labs Labs: 06/25/17 06:19 06/25/17 06:19
[2017-06-29] MEDS: MethylPREDNISolone 40 mg Vial IVP SCH ×3 (00:02→12:14)
[2017-06-29 05:39] VITALS: TEMP 97.7
[2017-06-29] MEDS: (Novolog) Insulin Aspart, Recombinant 100 u/ml 10 ml vial SC SCH ×2 (07:30→12:06)
[2017-06-29] MEDS: Tiotropium 18 mcg Cap For Inhalation INH SCH (07:53)
[2017-06-29 08:13] VITALS: PULSE 64; RESP 18; O2SAT 94
--- NOTE | 2017-06-29 08:58 | CP.PCM.PN ---
Objective - Vital Signs/Intake and Output Vital Signs (last 24 hours): Temp Pulse Resp BP Pulse Ox 97.7 F 64 18 99/62 L 94 L 06/29/17 07:10 06/29/17 07:10 06/29/17 07:10 06/29/17 07:10 06/29/17 07:10 Intake and Output: 06/29/17 06/29/17 06:59 18:59 Intake Total 480 Balance 480 - Medications Medications: Current Medications Abacavir/Lamivudine (Epzicom) 1 tab PO DAILY [facility] Last Admin: 06/28/17 09:37 Dose: 1 tab Acetaminophen (Tylenol 325mg Tab) 650 mg PO Q6 PRN PRN Reason: Pain, severe (8-10) Last Admin: 06/29/17 00:06 Dose: 650 mg Al Hydrox/Mg Hydrox/Simethicone (Maalox 30 Ml) 30 ml PO STAT STA Stop: 06/29/17 08:58 Atovaquone (Mepron) 750 mg PO BID [facility] Last Admin: 06/28/17 17:56 Dose: 750 mg Darunavir (Prezista) 800 mg PO DAILY [facility] Last Admin: 06/28/17 09:38 Dose: 800 mg Dextrose (Dextrose 50% Inj) 0 ml IV STAT PRN; Protocol PRN Reason: Hyglycemia Protocol Dextrose (Glutose 15) 0 gm PO ONCE PRN; Protocol PRN Reason: Hypoglycemia Protocol Escitalopram Oxalate (Lexapro) 10 mg PO HS [facility] Last Admin: 06/28/17 21:41 Dose: 10 mg Famotidine (Pepcid) 40 mg PO DAILY [facility] Last Admin: 06/28/17 09:37 Dose: 40 mg Furosemide (Lasix) 20 mg IVP Q12 [facility] Last Admin: 06/28/17 21:37 Dose: 20 mg Glucagon (Glucagen Diagnostic Kit) 0 mg IM STAT PRN; Protocol PRN Reason: Hypoglycemia Protocol Home Med (Home Med) 1 unit PO TID [facility] Last Admin: 06/26/17 10:26 Dose: Not Given Ganciclovir 150 mg/ Sodium (Chloride) 100 mls @ 100 mls/hr IV Q12H [facility] Last Admin: 06/28/17 20:30 Dose: 100 mls/hr Insulin Aspart (Novolog) 0 unit SC ACHS [facility] PRN Reason: Protocol Last Admin: 06/28/17 21:44 Dose: Not Given Lactulose (Enulose) 20 gm PO TID [facility] Last Admin: 06/28/17 17:57 Dose: 20 gm Methylprednisolone (Solu-Medrol) 20 mg IVP Q6 [facility] Last Admin: 06/29/17 05:35 Dose: 20 mg Metoprolol Tartrate (Lopressor) 25 mg PO BID [facility] Last Admin: 06/28/17 17:58 Dose: 25 mg Moxifloxacin HCl (Avelox) 400 mg PO Q24H [facility] Last Admin: 06/28/17 19:00 Dose: 400 mg Rifaximin (Xifaxan) 550 mg PO BID [facility] Last Admin: 06/28/17 17:56 Dose: 550 mg Ritonavir (Norvir) 100 mg PO DAILY [facility] Last Admin: 06/28/17 09:38 Dose: 100 mg Tiotropium Speed (Spiriva) 18 mcg INH RQ24 [facility] Last Admin: 06/29/17 07:53 Dose: 18 mcg - Labs Labs: 06/25/17 06:19 06/25/17 06:19
[2017-06-29] MEDS ORDERED: Aluminum Hydroxide/Magnesium Hydroxide Susp (30 mL) PO ONE (09:00)
[2017-06-29] MEDS: Abacavir/Lamivudine 600 mg-300 mg Tab PO SCH (10:45)
[2017-06-29] MEDS: Atovaquone 750 mg/5 ml Susp UD PO SCH (10:45)
--- NOTE | 2017-06-29 11:07 | CP.PCM.PN ---
Subjective - Date & Time of Evaluation Date of Evaluation: 06/29/17 Time of Evaluation: 07:00 - Subjective Subjective: high viral load and low t cells noted may need genotype analysis + counseling on need for compliance Objective - Vital Signs/Intake and Output Vital Signs (last 24 hours): Temp Pulse Resp BP Pulse Ox 97.7 F 64 18 99/62 L 94 L 06/29/17 07:10 06/29/17 07:10 06/29/17 07:10 06/29/17 07:10 06/29/17 07:10 Intake and Output: 06/29/17 06/29/17 06:59 18:59 Intake Total 480 Balance 480 - Medications Medications: Current Medications Abacavir/Lamivudine (Epzicom) 1 tab PO DAILY [facility] Last Admin: 06/28/17 09:37 Dose: 1 tab Acetaminophen (Tylenol 325mg Tab) 650 mg PO Q6 PRN PRN Reason: Pain, severe (8-10) Last Admin: 06/29/17 00:06 Dose: 650 mg Atovaquone (Mepron) 750 mg PO BID [facility] Last Admin: 06/28/17 17:56 Dose: 750 mg Darunavir (Prezista) 800 mg PO DAILY [facility] Last Admin: 06/28/17 09:38 Dose: 800 mg Dextrose (Dextrose 50% Inj) 0 ml IV STAT PRN; Protocol PRN Reason: Hyglycemia Protocol Dextrose (Glutose 15) 0 gm PO ONCE PRN; Protocol PRN Reason: Hypoglycemia Protocol Escitalopram Oxalate (Lexapro) 10 mg PO HS [facility] Last Admin: 06/28/17 21:41 Dose: 10 mg Famotidine (Pepcid) 40 mg PO DAILY [facility] Last Admin: 06/28/17 09:37 Dose: 40 mg Furosemide (Lasix) 20 mg IVP Q12 [facility] Last Admin: 06/28/17 21:37 Dose: 20 mg Glucagon (Glucagen Diagnostic Kit) 0 mg IM STAT PRN; Protocol PRN Reason: Hypoglycemia Protocol Home Med (Home Med) 1 unit PO TID [facility] Last Admin: 06/26/17 10:26 Dose: Not Given Ganciclovir 150 mg/ Sodium (Chloride) 100 mls @ 100 mls/hr IV Q12H [facility] Last Admin: 06/28/17 20:30 Dose: 100 mls/hr Insulin Aspart (Novolog) 0 unit SC ACHS [facility] PRN Reason: Protocol Last Admin: 06/28/17 21:44 Dose: Not Given Lactulose (Enulose) 20 gm PO TID [facility] Last Admin: 06/28/17 17:57 Dose: 20 gm Methylprednisolone (Solu-Medrol) 20 mg IVP Q6 [facility] Last Admin: 06/29/17 05:35 Dose: 20 mg Metoprolol Tartrate (Lopressor) 25 mg PO BID [facility] Last Admin: 06/28/17 17:58 Dose: 25 mg Moxifloxacin HCl (Avelox) 400 mg PO Q24H [facility] Last Admin: 06/28/17 19:00 Dose: 400 mg Rifaximin (Xifaxan) 550 mg PO BID [facility] Last Admin: 06/28/17 17:56 Dose: 550 mg Ritonavir (Norvir) 100 mg PO DAILY [facility] Last Admin: 06/28/17 09:38 Dose: 100 mg Tiotropium [place] (Spiriva) 18 mcg INH RQ24 [facility] Last Admin: 06/29/17 07:53 Dose: 18 mcg - Labs Labs: 06/25/17 06:19 06/25/17 06:19 Assessment and Plan (1) Hepatitis C antibody positive in blood Status: Acute (2) Hepatitis C antibody positive in blood Status: Acute (3) CHF (congestive heart failure), NYHA class II Status: Acute (4) Diabetes mellitus Status: Chronic (5) WAQAR (acute kidney injury) Status: Acute (6) Bilateral leg edema Status: Acute (7) CHF (NYHA class III, ACC/AHA stage C) Status: Acute (8) COPD bronchitis Status: Acute (9) HIV disease Status: Acute
[2017-06-29 11:19] VITALS: BP 120/74
--- NOTE | 2017-06-29 16:39 | PCM.HF ---
Heart Failure Core Measure - Heart Failure Ejection Fraction: Less Than 40 % (ON ECHO REPORT MODERATE TO SEVERERLY IMPAIRED ) RADHA Inhibitor Prescribed: Yes Beta-Melony Prescribed: Carvedilol Angiotensin II Receptor Melony Prescribed: No Contraindication/Reason for not providing: PATIENT IS ON LISINOPRIL AnticoagulationTherapy for Atrial Fibrillation/Atrialflutter: No Contraindication/Reason for not providing: NO HX OF AFIB Aldosterone Antagonist Prescribed: No Contraindication/Reason for not providing: RENAL INSUFFICIENCY Hydralazine Nitrate Prescribed: No Contraindication/Reason for not providing: RENAL INSUFFICIENCY Implantable Cardioverter Defibrillator Therapy: No Contraindication/Reason for not providing: NO HX OF AICD Cardiac Resynchronization Therapy Prescribed: No Contraindication/Reason for not providing: NO HX OF AICD - Follow up Will be discharged to: Home Follow Up Date (must be within 7 days from discharge): 07/05/17 Follow Up Time: 09:00
--- NOTE | 2017-06-29 17:33 | CARD ---
APPROVED REPORT EKG Measurement Heart [id number] <Conclusion> Normal sinus rhythm Right bundle branch block Abnormal ECG
--- NOTE | 2017-06-29 19:21 | CARD ---
APPROVED REPORT EKG Measurement Heart [id number] <Conclusion> Sinus tachycardia Right bundle branch block Abnormal ECG
[2017-07-01 23:29] LABS: HEPATITIS C VIRAL RNA QUAL Detected
--- NOTE | 2017-07-05 09:17 | DS ---
SUMMARY: The patient chief complaints of nausea, vomiting, and abdominal pain. The patient needs bedrest, supportive care, and IV fluids. Symptomatic treatment show improvement. Discharged to follow up as outpatient. Anant Anderson MD
== END 2017-06-29 16:34 | disposition home or self-care (01) | DRG 291 ==
LOC: C.ER 15:18 → C.9E 18:08 → EEVIPCON 18:08 → C.6T 19:07
PROVIDERS: ADMIT Internal Medicine Pulmonary Disease; ATTEND Internal Medicine Pulmonary Disease
DX: I11.0 Hypertensive heart disease with heart failure (principal); B20 Human immunodeficiency virus [HIV] disease; J18.9 Pneumonia, unspecified organism; N17.9 Acute kidney failure, unspecified; B25.9 Cytomegaloviral disease, unspecified; K72.90 Hepatic failure, unspecified without coma; J44.0 Chronic obstructive pulmonary disease with (acute) lower respiratory infection; F32.1 Major depressive disorder, single episode, moderate; J44.1 Chronic obstructive pulmonary disease with (acute) exacerbation; I50.33 Acute on chronic diastolic (congestive) heart failure; I27.20 Pulmonary hypertension, unspecified; B18.2 Chronic viral hepatitis C; E11.9 Type 2 diabetes mellitus without complications; F41.9 Anxiety disorder, unspecified; G47.30 Sleep apnea, unspecified; I25.10 Atherosclerotic heart disease of native coronary artery without angina pectoris; Z79.84 Long term (current) use of oral hypoglycemic drugs; Z79.899 Other long term (current) drug therapy; Z87.01 Personal history of pneumonia (recurrent); Z87.891 Personal history of nicotine dependence; Z88.0 Allergy status to penicillin; Z95.5 Presence of coronary angioplasty implant and graft